=== PATIENT | female | born 1970 | race Caucasian/White ===

== ENCOUNTER 2022-01-21 11:03 | Outpatient (CLI) | payer BC, SELFPAY ==
[2022-01-21 13:43] LABS: Albumin* 4.5 g/dL (3.3-5.0); Chloride* 106 mmol/L (96-114)
[2022-01-21 13:44] LABS: Potassium* 3.7 mmol/L (3.6-5.1); Sodium* 139 mmol/L (135-149)
[2022-01-21 13:46] LABS: Aspartate Amino Transferase* 25 U/L (12-35); Bilirubin Total* 0.5 mg/dL (0.1-1.5); Blood Urea Nitrogen* 10 mg/dL (7-30); Carbon Dioxide* 27 mmol/L (20-32); Cholesterol* 216 mg/dL (90-199); Creatinine* 0.7 mg/dL (0.5-1.5); Estimated Glomerular Filt Rate 105 ml/min; Glucose* 97 mg/dL (60-115); Total Protein* 7.7 g/dL (6.0-8.3)
[2022-01-21 13:47] LABS: Alanine Aminotransferase* 18 U/L (4-35); Alkaline Phosphatase* 84 U/L (40-150); Calcium* 9.5 mg/dL (8.4-10.6); HDL Cholesterol* 60 mg/dL (>=50); LDL Cholesterol Calculated 137 mg/dL (<100); Triglycerides* 93 mg/dL (40-149)
[2022-01-21 14:04] LABS: Vitamin D 25 Hydroxy* 31 ng/mL (30-80)
[2022-01-23 14:14] LABS: Follicle Stimulating Hormone 13.9 IU/L
== END 2022-01-21 11:04 | disposition home or self-care (01) ==
PROVIDERS: PCP Physician Assistant Medical; Visit Provider Nurse Practitioner Family
DX: R53.83 Other fatigue (principal); E78.5 Hyperlipidemia, unspecified
CPT/HCPCS: 80053; 80061; 82306; 83001; 84443

== ENCOUNTER 2022-04-10 08:39 | Outpatient (CLI) | payer BC, SELFPAY ==
--- NOTE | 2022-04-10 09:00 | CRLHL7_ITS ---
For Patients: As a result of the Century Cures Act, medical imaging exams and procedure reports are released immediately into your electronic medical record. You may view this report before your referring provider. If you have questions, please contact your health care provider. INDICATION: Lung mass seen on x-ray. TECHNIQUE: CT chest without contrast. COMPARISON: 04/03/2022. FINDINGS: Lungs and pleura: Lobulated mass in the anterior left lower lobe measuring 3.9 x 2.5 x 2.2 cm. Indeterminate 6 mm pulmonary nodule in the anterior right lower lobe (series 3, image 58). No bronchial wall thickening or endoluminal filling defect. No pleural effusion or thickening. Heart and vasculature: Heart size is normal. Thoracic aorta and pulmonary artery are normal in caliber. Lymph nodes/mediastinum: Mildly enlarged left hilar lymph node measuring 11 mm in short axis (series 2, image 53). No definite mediastinal lymphadenopathy. No hot right hilar lymphadenopathy. No axillary lymphadenopathy. Subtle stranding soft tissue density in the anterior mediastinum likely mild residual thymic tissue. Chest wall: No masses. Upper abdomen: No significant findings. Adrenal glands are normal. Bones: Unremarkable for age. No suspicious osseous lesions. Multilevel degenerative disc disease in the thoracic spine. IMPRESSION: 1. Lobulated mass in the anterior left lower lobe measuring 3.9 x 2.5 x 2.2 cm concerning for malignancy. 2. Indeterminate 6 mm pulmonary nodule in the anterior right lower lobe. 3. Mild left hilar lymphadenopathy. Please note that all CT scans at this facility use dose modulation, iterative reconstruction, and/or weight-based dosing when appropriate to reduce radiation dose to as low as reasonably achievable. Dictated by Dominic Joyce MD @ 04/10/2022 10:45:12 AM (Electronically Signed)
== END 2022-04-10 08:40 | disposition home or self-care (01) ==
LOC: CT 08:40
PROVIDERS: PCP Physician Assistant Medical; Visit Provider Physician Assistant Medical
DX: R91.8 Other nonspecific abnormal finding of lung field (principal); R91.1 Solitary pulmonary nodule
CPT/HCPCS: 71260; Q9967

== ENCOUNTER 2022-06-04 11:52 | Outpatient (CLI) | payer BC, SELFPAY ==
[2022-06-04 22:42] LABS: Chloride* 104 mmol/L (96-114); Sodium* 139 mmol/L (135-149)
[2022-06-04 22:43] LABS: Potassium* 4.1 mmol/L (3.6-5.1)
[2022-06-04 22:45] LABS: Creatinine* 0.6 mg/dL (0.5-1.5); Estimated Glomerular Filt Rate 108 ml/min
[2022-06-04 22:46] LABS: Blood Urea Nitrogen* 10 mg/dL (7-30); Calcium* 9.4 mg/dL (8.4-10.6); Carbon Dioxide* 28 mmol/L (20-32); Glucose* 84 mg/dL (60-115)
== END 2022-06-04 11:53 | disposition home or self-care (01) ==
LOC: FRMREF 11:53
PROVIDERS: PCP Physician Assistant Medical; Visit Provider Family Medicine
DX: Z01.818 Encounter for other preprocedural examination (principal)
CPT/HCPCS: 80048

== ENCOUNTER 2022-07-05 14:40 | Outpatient (CLI) | payer BC, SELFPAY ==
[2022-07-05 21:54] LABS: Chloride* 107 mmol/L (96-114); Potassium* 4.5 mmol/L (3.6-5.1); Sodium* 140 mmol/L (135-149)
[2022-07-05 21:57] LABS: Carbon Dioxide* 26 mmol/L (20-32); Creatinine* 0.7 mg/dL (0.5-1.5); Estimated Glomerular Filt Rate 104 ml/min
[2022-07-05 21:58] LABS: Blood Urea Nitrogen* 9 mg/dL (7-30); Calcium* 9.2 mg/dL (8.4-10.6); Glucose* 79 mg/dL (60-115)
== END 2022-07-05 14:41 | disposition home or self-care (01) ==
LOC: LKVREF 14:41
PROVIDERS: PCP Physician Assistant Medical; Visit Provider Emergency Medicine
DX: Z01.818 Encounter for other preprocedural examination (principal)
CPT/HCPCS: 80048

== ENCOUNTER 2022-09-05 10:43 | Outpatient (CLI) | payer BC, SELFPAY | END 2022-09-05 10:44 | disposition home or self-care (01) | LOC: FRMREF 10:47 | PROVIDERS: PCP Physician Assistant Medical; Visit Provider Family Medicine | DX: R21 Rash and other nonspecific skin eruption (principal); F33.9 Major depressive disorder, recurrent, unspecified; C34.90 Malignant neoplasm of unspecified part of unspecified bronchus or lung | CPT/HCPCS: 80053 ==

== ENCOUNTER 2022-11-18 19:59 | Emergency (ER) | payer BC, SELFPAY ==
[2022-11-18 20:10] VITALS: BP 129/77; PULSE 75; RESP 18; TEMP 35.9; O2SAT 99; BMI 26.6
--- NOTE | 2022-11-18 20:37 | ED_ITS ---
HPI - Nausea/Vomiting/Diarrhea General Chief complaint: Nausea/Vomiting Stated complaint: Chemo patient, Dehydrated Time Seen by Provider: 11/18/22 20:24 History of Present Illness HPI Narrative: This patient is a 52-year-old woman who comes in reporting nausea and vomiting related to chemotherapy. She had part of her lung removed because of and adenocarcinoma. This was several months ago. She is now undergoing 4 rounds of chemotherapy and states that it is making her feel nauseated with vomiting. She feels that she is behind on fluids. She does arrive with normal vital signs. She did take a Zofran tablet prior to arrival. This is the 1st time she has taken it as she was afraid that it might cause some adverse reactions. Related Data Home Medications Medication Instructions Recorded Confirmed ferrous sulfate 27 mg iron tablet 27 mg PO QDAY 01/21/22 11/05/22 cetirizine 10 mg tablet 10 mg PO DAILY 04/03/22 11/05/22 lorazepam 0.5 mg tablet 0.5 mg PO QDAY PRN 07/05/22 11/05/22 fluticasone propionate 50 2 intranasal DAILY 09/05/22 11/05/22 mcg/actuation nasal spray,suspension folic acid 1 mg tablet 1 mg PO DAILY 10/31/22 11/05/22 valacyclovir 1 gram tablet 1,000 mg PO 3XD 10/31/22 11/05/22 Previous Rx's Medication Instructions Recorded albuterol sulfate 90 mcg/actuation 2 puff inhalation Q6-8H #8.5 grams 04/03/22 aerosol inhaler (Ventolin HFA) budesonide-formoterol HFA 160 1 inh inhalation BID #10.2 grams 04/03/22 mcg-4.5 mcg/actuation aerosol inhaler (Symbicort) montelukast 10 mg tablet 10 mg PO QDAY #90 tabs 04/03/22 pantoprazole 20 mg tablet,delayed 20 mg PO DAILY #30 tabs 11/18/22 release (Protonix) Allergies Allergy/AdvReac Type Severity Reaction Status Date / Time aspirin Allergy Intermediate Verified 11/05/22 10:11 penicillin G Allergy Intermediate rash Verified 11/05/22 10:11 Sulfa (Sulfonamide Allergy Intermediate Difficulty Verified 11/05/22 10:11 Antibiotics) Breathing clarithromycin Allergy Unknown Unknown Verified 11/05/22 10:11 penicillin V Allergy Unknown Hives Verified 11/05/22 10:11 Quinolones Allergy Unknown Verified 11/05/22 10:11 rofecoxib Allergy Unknown Verified 11/05/22 10:11 gluten Allergy Verified 11/05/22 10:11 [place] oil Allergy Unknown Unknown Uncoded 11/05/22 10:11 Milk derivatives Allergy Unknown ubknown Uncoded 11/05/22 10:11 Wheat bran Allergy Unknown Uncoded 11/05/22 10:11 Review of Systems Status of ROS: Reports: 10 or more systems reviewed and unremarkable except as noted in History and below Narrative: Constitutional: No fevers, no weight gain or loss. Eyes: No discharge. No vision changes. HENT: No congestion, no sore throat, no ear pain. Cardiovascular: No chest pain, no palpitations. Respiratory: No shortness of breath, no wheezes, no cough. Gastrointestinal: No abdominal pain. Nausea with vomiting. Genitourinary: No dysuria, no hematuria. Musculoskeletal: Normal range of motion. Skin: No rashes, no pruritis. Neurological: No dizziness, weakness, sensory change, speech change. Endo/Heme/Allergies: No bruising or bleeding. No polydipsia. Pysch: no suicidality, no anxiety, no insomnia. All other systems reviewed and are negative. [facility] Medical History (Updated 11/18/22 @ 22:11 by French Gtz MD) Torticollis ?M43.6 - Torticollis (ICD-10) Yeast dermatitis ?B37.2 - Candidiasis of skin and nail (ICD-10) Shingles ?B02.9 - Zoster without complications (ICD-10) Hyperlipidemia ?E78.5 - Hyperlipidemia, unspecified (ICD-10) Moderate persistent asthma ?J45.40 - Moderate persistent asthma, uncomplicated (ICD-10) Adenocarcinoma, lung ?C34.90 - Malignant neoplasm of unspecified part of unspecified bronchus or lung (ICD-10) Mass of left lung ?R91.8 - Other nonspecific abnormal finding of lung field (ICD-10) History of cervical dysplasia ?Z87.410 - Personal history of cervical dysplasia (ICD-10) Surgical History History of lobectomy of lung ?Z90.2 - Acquired absence of lung [part of] (ICD-10) H/O sinus surgery ?Z98.890 - Other specified postprocedural states (ICD-10) S/P bronchoscopy ?Z98.890 - Other specified postprocedural states (ICD-10) Status post laparoscopy ?Z98.890 - Other specified postprocedural states (ICD-10) Status post biopsy ?Z98.890 - Other specified postprocedural states (ICD-10) Family History (Updated 03/29/22 @ 15:37 by Syeda Nicole ~ PSR) Father Alcohol dependence Heart disease Other Asthma Social History Smoking Status: Never smoker Non-prescribed substance use: denies use Little interest or pleasure in doing things: several days Feeling down, depressed, or hopeless: not at all Exam Narrative: Exam Narrative: Constitutional: Well-developed, well-nourished, no acute distress. HEENT: Normocephalic, atraumatic. Neck: Normal range of motion. Nontender. Supple. Heart: Regular. No murmurs. Normal rate. Intact distal pulses. Lungs: Clear to auscultation. No chest discomfort. No wheezes, rhonchi, or rales. Abdomen: Normal bowel sounds. Nontender. No rebound tenderness. Genitalia: Deferred. Back: No midline tenderness. Normal range of motion. Extremities: Normal range of motion. No injury. Skin: Intact. No rash. Warm. No erythema or pallor. Neurologic: No altered sensation. No weakness. Alert and oriented. Psychiatric: No suicidality. No anxiety or depression. No insomnia. Nursing notes and vitals signs are reviewed. Const: Vital Signs, click to edit/add: Vital Signs - 24 hr 11/18/22 20:10 Temperature 96.7 F L Pulse Rate [Pulse Oximeter] 75 Respiratory Rate 18 Blood Pressure [Ri ght Upper Arm] 129/77 Pulse Oximetry 99 Oxygen Delivery Me thod Room Air Course Vital Signs Vital signs: Initial Vital Signs Temperature 96.7 F L 11/18/22 20:10 Temperature Source Temporal Artery Scan 11/18/22 20:10 Pulse Rate 75 11/18/22 20:10 Pulse Rhythm Regular 11/18/22 20:10 Respiratory Rate 18 11/18/22 20:10 Blood Pressure 129/77 11/18/22 20:10 Blood Pressure Mean 94 11/18/22 20:10 Blood Pressure Position Sitting 11/18/22 20:10 Pulse Oximetry 99 11/18/22 20:10 Oxygen Delivery Method Room Air 11/18/22 20:10 Vital Signs Temperature 96.7 F L 11/18/22 20:10 Pulse Rate 75 11/18/22 20:10 Respiratory Rate 18 11/18/22 20:10 Blood Pressure 129/77 11/18/22 20:10 Pulse Oximetry 99 11/18/22 20:10 Oxygen Delivery Method Room Air 11/18/22 20:10 Temperature 96.7 F L 11/18/22 20:10 Pulse Rate 75 11/18/22 20:10 Respiratory Rate 18 11/18/22 20:10 Blood Pressure 129/77 11/18/22 20:10 Pulse Oximetry 99 11/18/22 20:10 Oxygen Delivery Method Room Air 11/18/22 20:10 MDM - Nausea/Vomiting/Diarrhea MDM Narrative Medical decision making narrative: This patient comes in with persistent vomiting and nausea related to chemotherapy. She has had similar symptoms previously that benefited from IV fluids. An IV was established and she did receive a total of 2 L of normal saline. She had taken Zofran prior to arrival. This was the 1st time she had taken this and was concerned that she might have some adverse reactions but did not. She feels better when remaining still but states that she tosses her cookies when she stands up. Lab results returned with reassuring findings. Her potassium and sodium are slightly low. She did also receive an IV dose of Protonix 40 mg. The patient is okay to be discharged home. A prescription for Protonix is provided. She is encouraged to follow-up with her primary physician or return if needed. Lab Data Labs: Lab Results 11/18/22 Range/Units 20:50 WBC 5.43 (4.50-11.00) K/uL RBC 3.52 L (4.00-5.20) m/uL Hgb 11.2 L (12.0-16.0) gm/dL Hct 32.1 L (33.0-51.0) % MCV 91 (80-100) fL MCH 32 (26-34) pg MCHC 35 (32-36) gm/dL RDW Coeff of Barber 12.5 (11.5-15.5) % Plt Count 241 (140-440) K/uL Neut % (Auto) 63.2 (42.0-72.0) % Lymph % (Auto) 32.0 (20-44) % [place] % (Auto) 1.8 (0.0-11.0) % Eos % (Auto) 2.4 (0.0-7.0) % Baso % (Auto) 0.4 (0.0-3.0) % Neut # (Auto) 3.43 (1.7-7.0) K/uL Lymph # (Auto) 1.74 (0.90-2.90) K/uL [place] # (Auto) 0.10 (0.00-0.90) K/UL Eos # (Auto) 0.13 (0.00-0.50) K/uL Baso # (Auto) 0.02 (0.00-0.30) K/uL Sodium 133 L (135-149) mmol/L Potassium 3.2 L (3.6-5.1) mmol/L Chloride 97 (96-114) mmol/L Carbon Dioxide 30 (20-32) mmol/L BUN 14 (7-30) mg/dL Creatinine 0.9 (0.5-1.5) mg/dL Estimated Creat Clear 76.42 Estimated GFR 77 ml/min Glucose 91 (60-115) mg/dL Calcium 9.1 (8.4-10.6) mg/dL Discharge Plan Discharge Clinical Impression: Non-small cell lung cancer, Fluid volume depletion Patient Disposition: Home, Self-Care Condition: Stable Additional Instructions: Take medication as prescribed and needed. Increase diet as tolerated. Take frequent sips of fluids. Follow up with MD return if worsening. Prescriptions: New pantoprazole [Protonix] 20 mg tablet,delayed release (DR/EC) 20 mg PO DAILY Qty: 30 2RF No Action cetirizine 10 mg tablet 10 mg PO DAILY budesonide-formoterol [Symbicort] 160-4.5 mcg/actuation HFA aerosol inhaler 1 inh inhalation BID Qty: 10.2 11RF albuterol sulfate [Ventolin HFA] 90 mcg/actuation HFA aerosol inhaler 2 puff inhalation Q6-8H Qty: 8.5 11RF montelukast 10 mg tablet 10 mg PO QDAY Qty: 90 3RF fluticasone propionate 50 mcg/actuation spray,suspension 2 intranasal DAILY ferrous sulfate 27 mg iron tablet 27 mg PO QDAY lorazepam 0.5 mg tablet 0.5 mg PO QDAY PRN valacyclovir 1 gram tablet 1,000 mg PO 3XD folic acid 1 mg tablet 1 mg PO DAILY Follow Up/Referrals: Claudai Armstrong DO [Primary Care Provider] - Stand Alone Forms: [facility] Info Instructions
[2022-11-18] MEDS: 0.9 % SODIUM CHLORIDE 1000 ml 1,000 ML IV ×2 (20:55→22:15)
[2022-11-18 21:07] LABS: Basophils Absolute Auto 0.02 K/uL (0.00-0.30); Basophils Percent Auto 0.4 % (0.0-3.0); Eosinophils Absolute Auto 0.13 K/uL (0.00-0.50); Eosinophils Percent Auto 2.4 % (0.0-7.0); Hematocrit 32.1 % (33.0-51.0); Hemoglobin* 11.2 gm/dL (12.0-16.0); Immature Granulocytes Abs Auto 0.01 K/uL (0.00-0.30); Immature Granulocytes Pct Auto 0.2 %; Lymphocytes Absolute Auto 1.74 K/uL (0.90-2.90); Mean Corpuscular HGB Conc 35 gm/dL (32-36); Mean Corpuscular Hemoglobin 32 pg (26-34); Mean Corpuscular Volume 91 fL (80-100); Monocytes Percent Auto 1.8 % (0.0-11.0); Neutrophils Absolute Auto 3.43 K/uL (1.7-7.0); Neutrophils Percent Auto 63.2 % (42.0-72.0); Platelet Count* 241 K/uL (140-440); RDW Coefficient of Variation % 12.5 % (11.5-15.5); Red Blood Count 3.52 m/uL (4.00-5.20); White Blood Count* 5.43 K/uL (4.50-11.00)
[2022-11-18 21:10] LABS: Slide Review Reflex No
[2022-11-18 21:24] LABS: Chloride* 97 mmol/L (96-114); Potassium* 3.2 mmol/L (3.6-5.1); Sodium* 133 mmol/L (135-149)
[2022-11-18 21:27] LABS: Blood Urea Nitrogen* 14 mg/dL (7-30); Carbon Dioxide* 30 mmol/L (20-32); Creatinine* 0.9 mg/dL (0.5-1.5); Est. Creatinine Clearance* 76.42; Estimated Glomerular Filt Rate 77 ml/min
[2022-11-18 21:28] LABS: Calcium* 9.1 mg/dL (8.4-10.6); Glucose* 91 mg/dL (60-115)
[2022-11-18] MEDS: PANTOPRAZOLE SODIUM 40 MG INJ IVP (21:41)
[2022-11-18 22:15] VITALS: BP 124/62; PULSE 69; RESP 18; TEMP 36.1; O2SAT 98
== END 2022-11-18 23:30 | disposition home or self-care (01) ==
PROVIDERS: Emergency Provider Emergency Medicine Emergency Medical Services; PCP Physician Assistant Medical
DX: E86.9 Volume depletion, unspecified (principal); C34.90 Malignant neoplasm of unspecified part of unspecified bronchus or lung
CPT/HCPCS: 36415; 80048; 85025; 96361; 96374; 99284; C9113; J7030

== ENCOUNTER 2022-12-20 17:13 | Emergency (ER) | payer BC, SELFPAY ==
[2022-12-20 17:19] VITALS: BP 131/82; PULSE 83; RESP 20; TEMP 36.2; O2SAT 98; BMI 26.4
--- NOTE | 2022-12-20 17:35 | ED.GENADULT ---
HPI - General Adult General Time Seen by Provider: 17:35 Date Seen: 12/20/22 Chief complaint: Weakness Stated complaint: Concerns about anemia from chemo Time Seen by Provider: 12/20/22 17:15 Source: patient, RN notes reviewed and old records reviewed Mode of arrival: ambulatory Limitations: no limitations History of Present Illness HPI narrative: 52-year-old female who comes in today with weakness. Patient has a history of lung adenocarcinoma as well as asthma and anxiety, complains of generalized weakness today. This is been going on for a while. She says she feels lightheaded when she walks, generally weak, no chest pain but some shortness of breath. No numbness or tingling in the arms or legs and says she sometimes feels clumsy. Occasional headaches. Denies abdominal pain, nausea, vomiting, stools are so ?mushy? which is not unusual for her. Reports hemoglobin last week was 9.4 or 9.7, she is not sure which. Related Data Home Medications Medication Instructions Recorded Confirmed ferrous sulfate 27 mg iron tablet 27 mg PO QDAY 01/21/22 11/05/22 cetirizine 10 mg tablet 10 mg PO DAILY 04/03/22 11/05/22 lorazepam 0.5 mg tablet 0.5 mg PO QDAY PRN 07/05/22 11/05/22 fluticasone propionate 50 2 intranasal DAILY 09/05/22 11/05/22 mcg/actuation nasal spray,suspension folic acid 1 mg tablet 1 mg PO DAILY 10/31/22 11/05/22 valacyclovir 1 gram tablet 1,000 mg PO 3XD 10/31/22 11/05/22 Previous Rx's Medication Instructions Recorded albuterol sulfate 90 mcg/actuation 2 puff inhalation Q6-8H #8.5 grams 04/03/22 aerosol inhaler (Ventolin HFA) budesonide-formoterol HFA 160 1 inh inhalation BID #10.2 grams 04/03/22 mcg-4.5 mcg/actuation aerosol inhaler (Symbicort) montelukast 10 mg tablet 10 mg PO QDAY #90 tabs 04/03/22 pantoprazole 20 mg tablet,delayed 20 mg PO DAILY #30 tabs 11/18/22 release (Protonix) Allergies Allergy/AdvReac Type Severity Reaction Status Date / Time aspirin Allergy Intermediate Verified 11/05/22 10:11 penicillin G Allergy Intermediate rash Verified 11/05/22 10:11 Sulfa (Sulfonamide Allergy Intermediate Difficulty Verified 11/05/22 10:11 Antibiotics) Breathing clarithromycin Allergy Unknown Unknown Verified 11/05/22 10:11 penicillin V Allergy Unknown Hives Verified 11/05/22 10:11 Quinolones Allergy Unknown Verified 11/05/22 10:11 rofecoxib Allergy Unknown Verified 11/05/22 10:11 gluten Allergy Verified 11/05/22 10:11 [place] oil Allergy Unknown Unknown Uncoded 11/05/22 10:11 Milk derivatives Allergy Unknown ubknown Uncoded 11/05/22 10:11 Wheat bran Allergy Unknown Uncoded 11/05/22 10:11 PFSH PFS Medical History (Updated 12/20/22 @ 19:37 by Evan Shen MD) Torticollis ?M43.6 - Torticollis (ICD-10) Yeast dermatitis ?B37.2 - Candidiasis of skin and nail (ICD-10) Shingles ?B02.9 - Zoster without complications (ICD-10) Hyperlipidemia ?E78.5 - Hyperlipidemia, unspecified (ICD-10) Moderate persistent asthma ?J45.40 - Moderate persistent asthma, uncomplicated (ICD-10) Adenocarcinoma, lung ?C34.90 - Malignant neoplasm of unspecified part of unspecified bronchus or lung (ICD-10) Mass of left lung ?R91.8 - Other nonspecific abnormal finding of lung field (ICD-10) History of cervical dysplasia ?Z87.410 - Personal history of cervical dysplasia (ICD-10) Surgical History History of lobectomy of lung ?Z90.2 - Acquired absence of lung [part of] (ICD-10) H/O sinus surgery ?Z98.890 - Other specified postprocedural states (ICD-10) S/P bronchoscopy ?Z98.890 - Other specified postprocedural states (ICD-10) Status post laparoscopy ?Z98.890 - Other specified postprocedural states (ICD-10) Status post biopsy ?Z98.890 - Other specified postprocedural states (ICD-10) Family History (Updated 03/29/22 @ 15:37 by Syeda Nicole ~ PSR) Father Alcohol dependence Heart disease Other Asthma Social History Smoking Status: Never smoker Do you use any of these nicotine containing products: None Second hand tobacco smoke exposure: No How often do you have a drink containing alcohol: never How often do you have six or more drinks on one occasion: Never AUDIT-C Alcohol total score: 0 Non-prescribed substance use: denies use Little interest or pleasure in doing things: several days Feeling down, depressed, or hopeless: not at all service: No Exam Narrative: Exam Narrative: General: Well-developed and well-nourished, no acute distress Head: Atraumatic and normocephalic Eyes: Pupils are equal reactive, extraocular motions intact, conjunctiva clear ENT: External nose and ears are normal, posterior pharynx without erythema or exudate Neck: No midline cervical tenderness, full spontaneous range of motion the neck, trachea midline, no adenopathy Heart: Regular rate and rhythm no murmurs or thrills Lungs: Clear to auscultation bilaterally without wheezes or crackles Abdomen: Soft, nontender, nondistended with active bowel sounds Musculoskeletal: No tenderness, deformity, or edema Neurologic: Awake, alert, and oriented x3, no gross focal neurologic deficits, cranial nerves intact as tested Psych: Mood and affect are appropriate Skin: No rashes Const: Vital Signs, click to edit/add: Vital Signs - 24 hr 12/20/22 17:19 12/20/22 19:35 Temperature 97.2 F L 98.3 F Pulse Rate [Pulse Oximeter] 83 66 Respiratory Rate 20 18 Blood Pressure [Le ft Upper Arm] 131/82 148/73 H Pulse Oximetry 98 100 Oxygen Delivery Me thod Room Air Room Air Course Course Hospital Course: Patient seen and examined, prior records reviewed. Patient presents today with lightheadedness and weakness, worried that she may be anemic. On exam here, no focal neurologic deficits, vital is stable. Appears slightly pale. She does have some shortness of breath but no pleuritic-type chest pain and no hypoxia, pulmonary embolism possible as patient is higher risk due to her malignancy but clinically unlikely. Labs are ordered along with fluids, CT scan of the head due to malignancy, headache, and expressed clumsiness. Reevaluation(s) Time of Reevaluation #1: 18:57 Reevaluation #1: CT scan of the head independently interpreted by me does not demonstrate any acute findings. Chest x-ray demonstrates hiatal hernia, no other acute findings. Time of Reevaluation #2: 19:33 Reevaluation #2: Labs independently interpreted by me demonstrate low hemoglobin 8.6, prior was 11.2 one month ago. Platelets 103 down from 241 month ago. Would not transfuse patient at 8.6 but keep close follow-up and consideration for transfusion if goes lower. Basic panel is reassuring, urinalysis is negative for acute infection. EKG is reassuring and troponin is negative. Patient is stable for discharge after fluids and should contact Oncology tomorrow. Time of Reevaluation #3: 19:57 Reevaluation #3: Updated patient with findings and plan. She is agreeable discharge after fluids with close follow-up with oncology. Vital Signs Vital signs: Initial Vital Signs Temperature 97.2 F L 12/20/22 17:19 Temperature Source Temporal Artery Scan 12/20/22 17:19 Pulse Rate 83 12/20/22 17:19 Pulse Rhythm Regular 12/20/22 17:19 Respiratory Rate 20 12/20/22 17:19 Blood Pressure 131/82 12/20/22 17:19 Blood Pressure Mean 98 12/20/22 17:19 Blood Pressure Position Sitting 12/20/22 17:19 Pulse Oximetry 98 12/20/22 17:19 Oxygen Delivery Method Room Air 12/20/22 17:19 Vital Signs Temperature 97.2 F L 12/20/22 17:19 Pulse Rate 83 12/20/22 17:19 Respiratory Rate 20 12/20/22 17:19 Blood Pressure 131/82 12/20/22 17:19 Pulse Oximetry 98 12/20/22 17:19 Oxygen Delivery Method Room Air 12/20/22 17:19 Temperature 98.3 F 12/20/22 19:35 Pulse Rate 66 12/20/22 19:35 Respiratory Rate 18 12/20/22 19:35 Blood Pressure 148/73 H 12/20/22 19:35 Pulse Oximetry 100 12/20/22 19:35 Oxygen Delivery Method Room Air 12/20/22 19:35 Medical Decision Making Lab Data Labs: Lab Results 12/20/22 12/20/22 Range/Units 18:15 18:50 WBC 3.19 L (4.50-11.00) K/uL RBC 2.65 L (4.00-5.20) m/uL Hgb 8.6 L (12.0-16.0) gm/dL Hct 25.0 L (33.0-51.0) % MCV 94 (80-100) fL MCH 33 (26-34) pg MCHC 34 (32-36) gm/dL RDW Coeff of Barber 12.5 (11.5-15.5) % Plt Count 103 L (140-440) K/uL Neut % (Auto) 23.5 L (42.0-72.0) % Lymph % (Auto) 58.0 H (20-44) % [place] % (Auto) 15.7 H (0.0-11.0) % Eos % (Auto) 2.5 (0.0-7.0) % Baso % (Auto) 0.3 (0.0-3.0) % Neut # (Auto) 0.70 L (1.7-7.0) K/uL Lymph # (Auto) 1.90 (0.90-2.90) K/uL [place] # (Auto) 0.50 (0.00-0.90) K/UL Eos # (Auto) 0.10 (0.00-0.50) K/uL Baso # (Auto) 0.00 (0.00-0.30) K/uL Abs Immat Gran (auto) 0.00 (0.00-0.30) K/uL Imm/Tot Granulo (auto) 0.0 % Diff Slide Review Acceptable Review (Acceptable) Sodium 138 (135-149) mmol/L Potassium 4.0 (3.6-5.1) mmol/L Chloride 106 (96-114) mmol/L Carbon Dioxide 26 (20-32) mmol/L BUN 14 (7-30) mg/dL Creatinine 0.7 (0.5-1.5) mg/dL Estimated Creat Clear 98.25 Estimated GFR 104 ml/min Glucose 88 (60-115) mg/dL Calcium 9.1 (8.4-10.6) mg/dL Magnesium 1.8 (1.5-2.6) mg/dL Urine Color Yellow (Yellow) Urine Appearance Clear (Clear) Urine pH 6.0 (5.0-8.5) Ur Specific [place] 1.010 (1.000-1.030) Urine Protein Negative (Negative) Urine Glucose (UA) Negative (Negative) Urine Ketones Negative (Negative) Urine Blood Trace-lysed A (Negative) Urine Nitrite Negative (Negative) Urine Bilirubin Negative (Negative) Urine Urobilinogen 0.2 (0.2-1.0) Ur Leukocyte Esterase Negative (Negative) Urine RBC 0-2 (0-2) Urine WBC 0-2 (0-5) Ur Squamous Epith Cells None (None-Few) Urine Bacteria None (None) POC Troponin I 0.00 L (0.01-0.04) ng/ml ECG Data Attestation: I personally reviewed and interpreted this ECG as follows: Prior ECG tracings: not available for review Interpretation: Performed at 6:40 p.m. demonstrates sinus rhythm rate 73, no acute ST elevations or depressions, normal intervals, normal axis, QTC 471, GA 154. No prior for comparison. Discharge Plan Discharge Clinical Impression: Pancytopenia due to chemotherapy, Non-small cell lung cancer Patient Disposition: Home w/ Parent or Adult Condition: Stable Instructions: Iron Rich Diet (ED), Eating During Cancer Treatment (DC), Pancytopenia (DC) Additional Instructions: Hemoglobin 8.6 Platelets 103 White blood cell count 3.19 Call your oncologist tomorrow to discuss recheck and further treatment. Prescriptions: No Action cetirizine 10 mg tablet 10 mg PO DAILY budesonide-formoterol [Symbicort] 160-4.5 mcg/actuation HFA aerosol inhaler 1 inh inhalation BID Qty: 10.2 11RF albuterol sulfate [Ventolin HFA] 90 mcg/actuation HFA aerosol inhaler 2 puff inhalation Q6-8H Qty: 8.5 11RF montelukast 10 mg tablet 10 mg PO QDAY Qty: 90 3RF fluticasone propionate 50 mcg/actuation spray,suspension 2 intranasal DAILY ferrous sulfate 27 mg iron tablet 27 mg PO QDAY lorazepam 0.5 mg tablet 0.5 mg PO QDAY PRN valacyclovir 1 gram tablet 1,000 mg PO 3XD folic acid 1 mg tablet 1 mg PO DAILY pantoprazole [Protonix] 20 mg tablet,delayed release (DR/EC) 20 mg PO DAILY Qty: 30 2RF Follow Up/Referrals: Nathalie Dowling PA-C [Primary Care Provider] - Stand Alone Forms: [facility] Info Instructions
--- NOTE | 2022-12-20 18:00 | CRLHL7_ITS ---
For Patients: As a result of the Century Cures Act, medical imaging exams and procedure reports are released immediately into your electronic medical record. You may view this report before your referring provider. If you have questions, please contact your health care provider. INDICATION: Weakness. TECHNIQUE: CT head without contrast. COMPARISON: 03/06/2019. FINDINGS: CSF spaces: Within normal limits for age. Brain parenchyma: The fox-white differentiation is normal. No sign of mass, hemorrhage, or midline shift. Skull base and calvarium: Polypoid mucosal thickening in the left frontal, left ethmoid, and bilateral maxillary sinuses. Mastoid air cells are clear. The visualized orbits are grossly unremarkable. No skull fractures. IMPRESSION: No acute intracranial abnormality. Please note that all CT scans at this facility use dose modulation, iterative reconstruction, and/or weight-based dosing when appropriate to reduce radiation dose to as low as reasonably achievable. Dictated by Henri Saleh MD @ 12/20/2022 6:59:32 PM (Electronically Signed)
--- NOTE | 2022-12-20 18:01 | CRLHL7_ITS ---
For Patients: As a result of the Century Cures Act, medical imaging exams and procedure reports are released immediately into your electronic medical record. You may view this report before your referring provider. If you have questions, please contact your health care provider. INDICATION: Weakness. TECHNIQUE: Chest 2 views. COMPARISON: 09/05/2022. FINDINGS: Cardiovascular and mediastinum: Heart size and vasculature are normal in caliber and appearance. Lungs and pleural spaces: Postoperative changes of partial left pneumonectomy with associated left basilar volume loss, unchanged. Right lung is clear. No pleural effusions or pneumothorax. Bones and soft tissues: No significant findings. IMPRESSION: No acute findings and no significant changes from the prior exam. Dictated by Henri Saleh MD @ 12/20/2022 6:56:35 PM (Electronically Signed)
[2022-12-20 19:03] LABS: Basophils Percent Auto 0.3 % (0.0-3.0); Eosinophils Percent Auto 2.5 % (0.0-7.0); Hemoglobin* 8.6 gm/dL (12.0-16.0); Mean Corpuscular HGB Conc 34 gm/dL (32-36); Mean Corpuscular Hemoglobin 33 pg (26-34); Mean Corpuscular Volume 94 fL (80-100); Monocytes Percent Auto 15.7 % (0.0-11.0); Neutrophils Percent Auto 23.5 % (42.0-72.0); Platelet Count* 103 K/uL (140-440); RDW Coefficient of Variation % 12.5 % (11.5-15.5); Red Blood Count 2.65 m/uL (4.00-5.20); White Blood Count* 3.19 K/uL (4.50-11.00)
[2022-12-20] MEDS: 0.9 % SODIUM CHLORIDE 1000 ml 1,000 ML IV (19:03)
[2022-12-20 19:13] LABS: Appearance Urine Clear (Clear); Bilirubin Urine Negative (Negative); Blood Urine Trace-lysed (Negative); Color Urine Yellow (Yellow); Glucose Urine Negative (Negative); Ketones Urine Negative (Negative); Leukocyte Esterase Urine Negative (Negative); Nitrite Urine Negative (Negative); Protein Urine Negative (Negative); Urobilinogen Urine 0.2 (0.2-1.0)
[2022-12-20 19:21] LABS: Chloride* 106 mmol/L (96-114); Sodium* 138 mmol/L (135-149)
[2022-12-20 19:24] LABS: Carbon Dioxide* 26 mmol/L (20-32); Creatinine* 0.7 mg/dL (0.5-1.5); Est. Creatinine Clearance* 98.25; Estimated Glomerular Filt Rate 104 ml/min
[2022-12-20 19:25] LABS: Blood Urea Nitrogen* 14 mg/dL (7-30); Calcium* 9.1 mg/dL (8.4-10.6); Glucose* 88 mg/dL (60-115); Magnesium* 1.8 mg/dL (1.5-2.6)
[2022-12-20 19:34] LABS: RBC Urine 0-2 (0-2); WBC Urine 0-2 (0-5)
[2022-12-20 19:35] VITALS: BP 148/73; PULSE 66; RESP 18; TEMP 36.8; O2SAT 100
[2022-12-20 19:55] LABS: Slide Review Reflex Yes
[2022-12-20 19:56] LABS: Slide Review Acceptable Review (Acceptable)
== END 2022-12-20 20:25 | disposition home or self-care (01) ==
PROVIDERS: Emergency Provider Family Medicine; PCP Physician Assistant Medical
DX: D61.810 Antineoplastic chemotherapy induced pancytopenia (principal); C34.90 Malignant neoplasm of unspecified part of unspecified bronchus or lung
CPT/HCPCS: 36415; 70450; 71046; 80048; 81001; 83735; 84484; 85025; 93005; 99284; J7030

== ENCOUNTER 2023-01-05 20:50 | Emergency (ER) | payer BC, SELFPAY ==
[2023-01-05] VITALS (9 sets, daily range): BP systolic 117–123; BP diastolic 56–60; PULSE 70–83; RESP 16; TEMP 36.6; O2SAT 97–100; BMI 26.4
--- NOTE | 2023-01-05 21:13 | ED_ITS ---
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 Patient recently finished her 4th round of chemotherapy. She really has not had a lot of persistent nausea with her chemotherapy. She has not had any fever chills. She does admit that she feels slightly bloated and has chronic constipation but denies any abdominal pain at this time. She has no dysuria fevers or diarrhea. She does think she is dehydrated. She has not taken any medications at home with the exception of Rolaids with magnesium. Associated nausea: Yes Related Data Home Medications Medication Instructions Recorded Confirmed ferrous sulfate 27 mg iron tablet 27 mg PO QDAY 01/21/22 01/05/23 cetirizine 10 mg tablet 10 mg PO DAILY 04/03/22 01/05/23 lorazepam 0.5 mg tablet 0.5 mg PO QDAY PRN 07/05/22 01/05/23 fluticasone propionate 50 2 intranasal DAILY 09/05/22 11/05/22 mcg/actuation nasal spray,suspension folic acid 1 mg tablet 1 mg PO DAILY 10/31/22 01/05/23 Previous Rx's Medication Instructions Recorded albuterol sulfate 90 mcg/actuation 2 puff inhalation Q6-8H #8.5 grams 04/03/22 aerosol inhaler (Ventolin HFA) budesonide-formoterol HFA 160 1 inh inhalation BID #10.2 grams 04/03/22 mcg-4.5 mcg/actuation aerosol inhaler (Symbicort) montelukast 10 mg tablet 10 mg PO QDAY #90 tabs 04/03/22 Allergies Allergy/AdvReac Type Severity Reaction Status Date / Time aspirin Allergy Intermediate Verified 01/05/23 21:07 penicillin G Allergy Intermediate rash Verified 01/05/23 21:07 Sulfa (Sulfonamide Allergy Intermediate Difficulty Verified 01/05/23 21:07 Antibiotics) Breathing clarithromycin Allergy Unknown Unknown Verified 01/05/23 21:07 penicillin V Allergy Unknown Hives Verified 01/05/23 21:07 Quinolones Allergy Unknown Verified 01/05/23 21:07 rofecoxib Allergy Unknown Verified 01/05/23 21:07 gluten Allergy Verified 01/05/23 21:07 [place] oil Allergy Unknown Unknown Uncoded 11/05/22 10:11 Milk derivatives Allergy Unknown ubknown Uncoded 11/05/22 10:11 Wheat bran Allergy Unknown Uncoded 11/05/22 10:11 Review of Systems Status of ROS: Reports: 10 or more systems reviewed and unremarkable except as noted in History and below Const: Reports: fatigue; Denies: fever or chills ENMT: Denies: throat pain, neck pain or throat swelling Cardio: Denies: chest pain or shortness of breath with exertion Resp: Denies: shortness of breath or cough GI: Reports: nausea, vomiting, constipation, bloating and belching; Denies: abdominal pain, diarrhea or blood in stool : Denies: painful urination, urinary frequency or urinary urgency Musculo: Denies: back pain or neck pain Integ/Breast: Denies: rash Neuro: Denies: headache or numbness in extremities Endo: Reports: fatigue; Denies: excessive urination or excessive thirst Allergy/Immuno: Denies: throat swelling PFSH PFSH Medical History (Updated 01/05/23 @ 23:17 by Taylor Charlton MD) Torticollis ?M43.6 - Torticollis (ICD-10) Yeast dermatitis ?B37.2 - Candidiasis of skin and nail (ICD-10) Shingles ?B02.9 - Zoster without complications (ICD-10) Hyperlipidemia ?E78.5 - Hyperlipidemia, unspecified (ICD-10) Moderate persistent asthma ?J45.40 - Moderate persistent asthma, uncomplicated (ICD-10) Adenocarcinoma, lung ?C34.90 - Malignant neoplasm of unspecified part of unspecified bronchus or lung (ICD-10) Mass of left lung ?R91.8 - Other nonspecific abnormal finding of lung field (ICD-10) History of cervical dysplasia ?Z87.410 - Personal history of cervical dysplasia (ICD-10) Surgical History History of lobectomy of lung ?Z90.2 - Acquired absence of lung [part of] (ICD-10) H/O sinus surgery ?Z98.890 - Other specified postprocedural states (ICD-10) S/P bronchoscopy ?Z98.890 - Other specified postprocedural states (ICD-10) Status post laparoscopy ?Z98.890 - Other specified postprocedural states (ICD-10) Status post biopsy ?Z98.890 - Other specified postprocedural states (ICD-10) Family History (Updated 03/29/22 @ 15:37 by Syeda Nicole ~ PSR) Father Alcohol dependence Heart disease Other Asthma Social History Smoking Status: Never smoker Do you use any of these nicotine containing products: None Second hand tobacco smoke exposure: No How often do you have a drink containing alcohol: never How often do you have six or more drinks on one occasion: Never AUDIT-C Alcohol total score: 0 Non-prescribed substance use: denies use Little interest or pleasure in doing things: several days Feeling down, depressed, or hopeless: not at all service: No Exam Narrative: Exam Narrative: Alert and oriented. Very pleasant woman in no acute discomfort. EOM is full. Oral cavity with tacky mucous membranes. No evidence of yeast or erythema. Neck is supple without lymphadenopathy Heart with a regular rate and rhythm. Lungs are clear bilaterally. Decreased breath sounds on the left. Abdomen is slightly bloated but is soft and nontender. No pain with palpation in the epigastrium right upper quadrant. Moving all extremities Const: Vital Signs, click to edit/add: Vital Signs - 24 hr 01/05/23 21:02 Temperature 97.8 F Pulse Rate [Left P ulse Oximeter] 70 Respiratory Rate 16 Blood Pressure [Le ft Upper Arm] 120/58 L Pulse Oximetry 97 Oxygen Delivery Me thod Room Air Documenting provider has reviewed patient's vital signs: yes Course Course Hospital Course: At this time differential diagnosis includes gastroenteritis, gastritis, chemotherapy response, small-bowel obstruction. Although patient has no distinct abdominal pain at this time. Did have a small bowel movement this morning. Will place an IV and check CBC, comprehensive panel, urinalysis, and give 1 L of normal saline. Will also give Zofran 4 mg IV. Reevaluation(s) Reevaluation #1: Patient informed that she does have a hemoglobin of 8.6. However, she has O2 saturations that are reassuring as well as no evidence of tachycardia are or hypotension. Previous value in our system is 8.6. She was able to rebound from this in the past and has not received a blood transfusion. At this time do not recommend transfusion but rather follow-up with primary MD for recheck. Reevaluation #2: Patient noted to have reassuring electrolytes as well as platelets, white cells, LFTs. CRP within normal limits. Urinalysis without evidence of ketones. Vital Signs Vital signs: Initial Vital Signs Temperature 97.8 F 01/05/23 21:02 Temperature Source Temporal Artery Scan 01/05/23 21:02 Pulse Rate 70 01/05/23 21:02 Respiratory Rate 16 01/05/23 21:02 Blood Pressure 120/58 L 01/05/23 21:02 Blood Pressure Mean 78 01/05/23 21:02 Blood Pressure Position Semi-Fowlers 01/05/23 21:02 Pulse Oximetry 97 01/05/23 21:02 Oxygen Delivery Method Room Air 01/05/23 21:02 Vital Signs Temperature 97.8 F 01/05/23 21:02 Pulse Rate 70 01/05/23 21:02 Respiratory Rate 16 01/05/23 21:02 Blood Pressure 120/58 L 01/05/23 21:02 Pulse Oximetry 97 01/05/23 21:02 Oxygen Delivery Method Room Air 01/05/23 21:02 Temperature 97.8 F 01/05/23 21:02 Pulse Rate 70 01/05/23 21:02 Respiratory Rate 16 01/05/23 21:02 Blood Pressure 120/58 L 01/05/23 21:02 Pulse Oximetry 97 01/05/23 21:02 Oxygen Delivery Method Room Air 01/05/23 21:02 MDM - Nausea/Vomiting/Diarrhea MDM Narrative Medical decision making narrative: 1. Nausea vomiting-resolved with Zofran 4 mg IV and 1 L of normal saline. Additional L given as patient felt that she had not been adequately urinating. Patient has been able to eat and drink. Feeling much better. Will give her prescription for Zofran ODT 4 mg Q 8 hours p.r.n. 10. With no refills. 2. Anemia-hemoglobin 8.16. Platelets and white counts within normal limits. Recommend follow-up with Oncology for recheck of hemoglobin. At this time patient is not tachycardic nor hypotensive. 2. Disposition -home. Return for worsening symptoms and as needed. Medical Records Attestation: I reviewed the patient's medical records. Lab Data Attestation: I reviewed the patient's lab results. Labs: Lab Results 01/05/23 01/05/23 Range/Units 21:40 22:27 WBC 5.32 (4.50-11.00) K/uL RBC 2.56 L (4.00-5.20) m/uL Hgb 8.6 L (12.0-16.0) gm/dL Hct 25.0 L (33.0-51.0) % MCV 98 (80-100) fL MCH 34 (26-34) pg MCHC 34 (32-36) gm/dL RDW Coeff of [place] 15.4 (11.5-15.5) % Plt Count 241 (140-440) K/uL Neut % (Auto) 62.4 (42.0-72.0) % Lymph % (Auto) 33.8 (20-44) % [place] % (Auto) 2.3 (0.0-11.0) % Eos % (Auto) 1.1 (0.0-7.0) % Baso % (Auto) 0.4 (0.0-3.0) % Neut # (Auto) 3.32 (1.7-7.0) K/uL Lymph # (Auto) 1.80 (0.90-2.90) K/uL [place] # (Auto) 0.10 (0.00-0.90) K/UL Eos # (Auto) 0.06 (0.00-0.50) K/uL Baso # (Auto) 0.02 (0.00-0.30) K/uL Abs Immat Gran (auto) 0.00 (0.00-0.30) K/uL Imm/Tot Granulo (auto) 0.0 % Sodium 135 (135-149) mmol/L Potassium 3.4 L (3.6-5.1) mmol/L Chloride 102 (96-114) mmol/L Carbon Dioxide 28 (20-32) mmol/L BUN 14 (7-30) mg/dL Creatinine 0.6 (0.5-1.5) mg/dL Estimated Creat Clear 114.62 Estimated GFR 108 ml/min Glucose 94 (60-115) mg/dL Calcium 8.7 (8.4-10.6) mg/dL Magnesium 1.7 (1.5-2.6) mg/dL Total Bilirubin 0.5 (0.1-1.5) mg/dL AST 24 (12-35) U/L ALT 21 (4-35) U/L Alkaline Phosphatase 60 (40-150) U/L C-Reactive Protein 0.8 (0.5-1.0) mg/dL Total Protein 6.4 (6.0-8.3) g/dL Albumin 3.7 (3.3-5.0) g/dL Urine Color Yellow (Yellow) Urine Appearance Clear (Clear) Urine pH 8.5 (5.0-8.5) Ur Specific [place] 1.020 (1.000-1.030) Urine Protein Negative (Negative) Urine Glucose (UA) Negative (Negative) Urine Ketones Negative (Negative) Urine Blood Negative (Negative) Urine Nitrite Negative (Negative) Urine Bilirubin Negative (Negative) Urine Urobilinogen 0.2 (0.2-1.0) Ur Leukocyte Esterase Negative (Negative) Urine RBC 0-2 (0-2) Urine WBC 0-2 (0-5) Ur Squamous Epith Cells None (None-Few) Urine Bacteria None (None) Discharge Plan Discharge Clinical Impression: Anemia Qualifiers: Anemia type: other cause Other causes of anemia: other cause, not classified Qualified Code(s): D64.89 - Other specified anemias Nausea & vomiting Qualifiers: Vomiting type: unspecified Qualified Code(s): R11.2 - Nausea with vomiting, unspecified Patient Disposition: Home, Self-Care Condition: Improved Instructions: Acute Nausea and Vomiting (ED), Anemia (ED) Additional Instructions: Your hemoglobin is 8.6. Your white count was normal at 5.32 and your platelets were normal at 241. Your urine was without any evidence of infection. Follow-up tomorrow by calling your primary doctor or oncologist. You will need to have a recheck of your hemoglobin. Zofran may be used for nausea. This will be in our InStent meds machine. We spoke about the possibility of increasing constipation. Would recommend using MiraLax 1/2 dose every 12 hours. Continue Colace at this time. Return to the emergency room for vomiting, blood in stool, worsening symptoms, fever and as needed. Prescriptions: No Action cetirizine 10 mg tablet 10 mg PO DAILY budesonide-formoterol [Symbicort] 160-4.5 mcg/actuation HFA aerosol inhaler 1 inh inhalation BID Qty: 10.2 11RF albuterol sulfate [Ventolin HFA] 90 mcg/actuation HFA aerosol inhaler 2 puff inhalation Q6-8H Qty: 8.5 11RF montelukast 10 mg tablet 10 mg PO QDAY Qty: 90 3RF fluticasone propionate 50 mcg/actuation spray,suspension 2 intranasal DAILY ferrous sulfate 27 mg iron tablet 27 mg PO QDAY lorazepam 0.5 mg tablet 0.5 mg PO QDAY PRN folic acid 1 mg tablet 1 mg PO DAILY Follow Up/Referrals: Nathalie Dowling PA-C [Primary Care Provider] - Stand Alone Forms: [facility] Info Instructions
[2023-01-05 21:49] LABS: Basophils Absolute Auto 0.02 K/uL (0.00-0.30); Basophils Percent Auto 0.4 % (0.0-3.0); Eosinophils Absolute Auto 0.06 K/uL (0.00-0.50); Eosinophils Percent Auto 1.1 % (0.0-7.0); Hemoglobin* 8.6 gm/dL (12.0-16.0); Lymphocytes Percent Auto 33.8 % (20-44); Mean Corpuscular HGB Conc 34 gm/dL (32-36); Mean Corpuscular Hemoglobin 34 pg (26-34); Mean Corpuscular Volume 98 fL (80-100); Monocytes Percent Auto 2.3 % (0.0-11.0); Neutrophils Absolute Auto 3.32 K/uL (1.7-7.0); Neutrophils Percent Auto 62.4 % (42.0-72.0); Platelet Count* 241 K/uL (140-440); RDW Coefficient of Variation % 15.4 % (11.5-15.5); Red Blood Count 2.56 m/uL (4.00-5.20); White Blood Count* 5.32 K/uL (4.50-11.00)
[2023-01-05] MEDS: 0.9 % SODIUM CHLORIDE 1000 ml 1,000 ML IV ×2 (21:49→22:56)
[2023-01-05] MEDS: ONDANSETRON 2 MG/ML inj 4 MG IVP (21:49)
[2023-01-05 22:03] LABS: Slide Review Reflex No
[2023-01-05 22:07] LABS: Albumin* 3.7 g/dL (3.3-5.0); Chloride* 102 mmol/L (96-114); Potassium* 3.4 mmol/L (3.6-5.1); Sodium* 135 mmol/L (135-149)
[2023-01-05 22:09] LABS: Creatinine* 0.6 mg/dL (0.5-1.5); Est. Creatinine Clearance* 114.62; Estimated Glomerular Filt Rate 108 ml/min
[2023-01-05 22:10] LABS: Alanine Aminotransferase* 21 U/L (4-35); Alkaline Phosphatase* 60 U/L (40-150); Aspartate Amino Transferase* 24 U/L (12-35); Bilirubin Total* 0.5 mg/dL (0.1-1.5); Blood Urea Nitrogen* 14 mg/dL (7-30); Calcium* 8.7 mg/dL (8.4-10.6); Carbon Dioxide* 28 mmol/L (20-32); Glucose* 94 mg/dL (60-115); Total Protein* 6.4 g/dL (6.0-8.3)
[2023-01-05 22:11] LABS: Magnesium* 1.7 mg/dL (1.5-2.6)
[2023-01-05 22:13] LABS: C Reactive Protein* 0.8 mg/dL (0.5-1.0)
[2023-01-05 22:38] LABS: Appearance Urine Clear (Clear); Bilirubin Urine Negative (Negative); Blood Urine Negative (Negative); Color Urine Yellow (Yellow); Glucose Urine Negative (Negative); Ketones Urine Negative (Negative); Leukocyte Esterase Urine Negative (Negative); Nitrite Urine Negative (Negative); Protein Urine Negative (Negative); Urobilinogen Urine 0.2 (0.2-1.0); pH Urine 8.5 (5.0-8.5)
[2023-01-05 22:49] LABS: RBC Urine 0-2 (0-2); WBC Urine 0-2 (0-5)
[2023-01-06] VITALS: PULSE 78; O2SAT 99
== END 2023-01-06 00:14 | disposition home or self-care (01) ==
PROVIDERS: Emergency Provider Family Medicine; PCP Physician Assistant Medical
DX: R11.2 Nausea with vomiting, unspecified (principal)
CPT/HCPCS: 36415; 80053; 81001; 83735; 85025; 86140; 96374; 99284; J2405; J7030

== ENCOUNTER 2023-02-13 15:50 | Outpatient (CLI) | payer BC, SELFPAY ==
--- NOTE | 2023-02-13 16:00 | CRLHL7_ITS ---
For Patients: As a result of the Century Cures Act, medical imaging exams and procedure reports are released immediately into your electronic medical record. You may view this report before your referring provider. If you have questions, please contact your health care provider. INDICATION: Cervicalgia TECHNIQUE: CT of the neck with 89 ml Isovue 370 iodinated contrast agent. Coronal and sagittal reconstructions are included. COMPARISON: None FINDINGS: There is no mass or other lesion within the soft tissues of the suprahyoid or infrahyoid neck. No cervical lymphadenopathy. The oral cavity, nasopharyngeal, oropharyngeal and hypopharyngeal mucosal spaces are normal. Incidental ossification of the right arytenoid cartilage. Asymmetric enlargement of the right laryngeal ventricle. The piriform recesses are symmetric and normal in size. The supraglottic and infraglottic larynx are unremarkable. The airway including the trachea is normal and is patent. The parotid glands, submandibular and sublingual glands are normal in appearance. The thyroid gland is normal in appearance. The vascular structures opacify normally with contrast material. Moderate space narrowing. Disc osteophyte complex and uncovertebral joint hypertrophy at C5-6. Left C7-T1 facet arthropathy. No suspicious lytic or blastic osseous lesions. Moderate mucosal thickening in the maxillary sinuses. Visualized orbital and intracranial contents are unremarkable. Supraclavicular regions, mediastinum and soft tissues of the imaged chest wall are unremarkable. Visualized portions of the upper lungs are clear. IMPRESSION: 1. No suspicious enhancement or neck mass. Unremarkable deep soft tissues of the neck. 2. No evidence of acute inflammation. 3. No cervical lymphadenopathy. 4. Asymmetric enlargement of the right laryngeal ventricle which could be seen with unilateral vocal cord paresis, however there is normal symmetric sizes of the piriform recesses and no rotation of the right arytenoids. This could be an incidental finding. 5. Moderate maxillary sinus inflammatory mucosal disease. Please note that all CT scans at this facility use dose modulation, iterative reconstruction, and/or weight-based dosing when appropriate to reduce radiation dose to as low as reasonably achievable. Dictated by Ethan Zamora MD @ 02/14/2023 2:55:56 PM (Electronically Signed)
== END 2023-02-13 15:51 | disposition home or self-care (01) ==
PROVIDERS: PCP Physician Assistant Medical; Visit Provider Internal Medicine
DX: M54.2 Cervicalgia (principal); J32.0 Chronic maxillary sinusitis
CPT/HCPCS: 70491; Q9967

== ENCOUNTER 2023-02-22 13:57 | Outpatient (CLI) | payer BC, SELFPAY ==
--- NOTE | 2023-02-22 14:00 | CRLHL7_ITS ---
For Patients: As a result of the Century Cures Act, medical imaging exams and procedure reports are released immediately into your electronic medical record. You may view this report before your referring provider. If you have questions, please contact your health care provider. Indication: NON SMALL CELL LUNG CA Technique: Postcontrast CT chest, abdomen and pelvis. 89 cc Isovue 370 intravenous contrast. Please note that all CT scans at this facility use dose modulation, iterative reconstruction, and/or weight-based dosing when appropriate to reduce radiation dose to as low as reasonably achievable. Comparison: CT chest 04/10/2022 Findings: In the chest, 6 millimeter nodule is present within the right lower lobe, 3/63. This is similar to the prior study. Postoperative changes of partial left pneumonectomy. No enlarged mediastinal, hilar or axillary lymph nodes. No pleural or pericardial effusion. No fracture or intrinsic osseous lesion. In the abdomen, there is a stable subcentimeter cyst within the left hepatic lobe near the dome and within the left hepatic lobe medially. Additional sub cm cyst within the right hepatic lobe inferiorly. The adrenal glands are within normal limits. Normal spleen. The kidneys are normal. Normal gallbladder. The pancreas is unremarkable. A hiatal hernia is present measuring 2.4 cm. Subcentimeter retroperitoneal lymph nodes are present. No bowel obstruction. No ascites. In the pelvis, the bladder is normal. Incidental cervical nabothian cysts are present. No adnexal mass. No large uterine fibroid. No bowel obstruction or free air. No free fluid. A few scattered subcentimeter mesenteric lymph nodes are present. A benign bone island is located within the left iliac bone. No fracture is present. Impression: Postoperative changes of partial left pneumonectomy. Stable 6 millimeter right lower lobe pulmonary nodule. Stable sub cm cysts within the liver. No adenopathy in the chest, abdomen or pelvis. Please note that all CT scans at this facility use dose modulation, iterative reconstruction, and/or weight-based dosing when appropriate to reduce radiation dose to as low as reasonably achievable. Dictated by Ethan Buchanan MD @ 02/25/2023 10:16:24 AM (Electronically Signed)
== END 2023-02-22 13:58 | disposition home or self-care (01) ==
LOC: CT 13:57
PROVIDERS: PCP Physician Assistant Medical; Referring Provider Student in an Organized Health Care Education/Training Program
DX: C34.32 Malignant neoplasm of lower lobe, left bronchus or lung (principal); K76.89 Other specified diseases of liver
CPT/HCPCS: 71260; 74177; Q9967

== ENCOUNTER 2023-03-26 19:33 | Outpatient (REF) | payer BC, SELFPAY ==
[2023-03-26 20:01] LABS: Basophils Absolute Auto 0.04 K/uL (0.00-0.30); Basophils Percent Auto 0.7 % (0.0-3.0); Eosinophils Absolute Auto 0.22 K/uL (0.00-0.50); Eosinophils Percent Auto 3.6 % (0.0-7.0); Hematocrit 35.2 % (33.0-51.0); Hemoglobin* 12.1 gm/dL (12.0-16.0); Lymphocytes Absolute Auto 2.46 K/uL (0.90-2.90); Lymphocytes Percent Auto 40.7 % (20-44); Mean Corpuscular HGB Conc 34 gm/dL (32-36); Mean Corpuscular Hemoglobin 33 pg (26-34); Mean Corpuscular Volume 97 fL (80-100); Monocytes Percent Auto 7.3 % (0.0-11.0); Neutrophils Absolute Auto 2.89 K/uL (1.7-7.0); Neutrophils Percent Auto 47.7 % (42.0-72.0); Platelet Count* 232 K/uL (140-440); RDW Coefficient of Variation % 10.7 % (11.5-15.5); Red Blood Count 3.63 m/uL (4.00-5.20); Slide Review Reflex No; White Blood Count* 6.05 K/uL (4.50-11.00)
[2023-03-26 20:16] LABS: Albumin* 4.5 g/dL (3.3-5.0); Chloride* 104 mmol/L (96-114); Potassium* 3.6 mmol/L (3.6-5.1); Sodium* 140 mmol/L (135-149)
[2023-03-26 20:18] LABS: Anion Gap 10 mEq/L (7-15); Bilirubin Total* 0.3 mg/dL (0.1-1.5); Carbon Dioxide* 26 mmol/L (20-32); Creatinine* 0.9 mg/dL (0.5-1.5); Estimated Glomerular Filt Rate 77 ml/min
[2023-03-26 20:19] LABS: Alanine Aminotransferase* 20 U/L (4-35); Alkaline Phosphatase* 65 U/L (40-150); Aspartate Amino Transferase* 30 U/L (12-35); Blood Urea Nitrogen* 17 mg/dL (7-30); Calcium* 9.6 mg/dL (8.4-10.6); Glucose* 73 mg/dL (60-115); Total Protein* 7.8 g/dL (6.0-8.3)
== END 2023-03-26 19:34 | disposition home or self-care (01) ==
LOC: LAB 19:33
PROVIDERS: PCP Physician Assistant Medical; Visit Provider Student in an Organized Health Care Education/Training Program
DX: C34.32 Malignant neoplasm of lower lobe, left bronchus or lung (principal)
CPT/HCPCS: 36415; 80053; 84443; 85025

== ENCOUNTER 2023-04-10 10:30 | Outpatient (CLI) | payer BC, SELFPAY | END 2023-04-10 10:31 | disposition home or self-care (01) | PROVIDERS: PCP Physician Assistant Medical; Visit Provider Physician Assistant Medical | DX: N89.8 Other specified noninflammatory disorders of vagina (principal); E78.5 Hyperlipidemia, unspecified | CPT/HCPCS: 80053; 80061 ==

== ENCOUNTER 2023-11-24 16:42 | Emergency (ER) | payer BC, SELFPAY ==
[2023-11-24 16:46] VITALS: BP 169/81; PULSE 70; RESP 18; TEMP 36.3; O2SAT 97; BMI 27.3
--- NOTE | 2023-11-24 17:09 | ED.GENADULT ---
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 She is under a lot of financial stress as well as work stress, social is stress at home. And has had a history of anxiety. In the past she was on Zoloft and Ativan. At this time she has been on no antidepressants. She sees Dr. Dowling and she is interested in getting back in and seeing about anxiety medications. She works at [employer]. Related Data Home Medications ?Medication ?Instructions ?Recorded ?Confirmed ferrous sulfate 27 mg iron tablet 27 mg PO QDAY 01/21/22 11/06/23 fluticasone propionate 50 2 intranasal DAILY 09/05/22 11/06/23 mcg/actuation nasal spray,suspension folic acid 1 mg tablet 1 mg PO DAILY 10/31/22 11/06/23 Previous Rx's ?Medication ?Instructions ?Recorded albuterol sulfate 90 mcg/actuation 2 puff inhalation Q6-8H #8.5 grams 04/10/23 aerosol inhaler (Ventolin HFA) ketoconazole 2 % shampoo 1 applic topical 3XW #120 mL 04/10/23 montelukast 10 mg tablet 10 mg PO QDAY #90 tabs 04/10/23 fluticasone propionate 115 2 puff inhalation BID #12 grams 07/18/23 mcg-salmeterol 21 mcg/actuation HFA inhaler (Advair HFA) cetirizine 10 mg tablet 10 mg PO DAILY #100 tabs 10/31/23 famotidine 20 mg tablet 20 mg PO QHS #90 tabs 10/31/23 Allergies Allergy/AdvReac Type Severity Reaction Status Date / Time aspirin Allergy Intermediate Verified 11/06/23 09:45 penicillin G Allergy Intermediate rash Verified 11/06/23 09:45 Sulfa (Sulfonamide Allergy Intermediate Difficulty Verified 11/06/23 09:45 Antibiotics) Breathing clarithromycin Allergy Unknown Unknown Verified 11/06/23 09:45 penicillin V Allergy Unknown Hives Verified 11/06/23 09:45 Quinolones Allergy Unknown Verified 11/06/23 09:45 rofecoxib Allergy Unknown Verified 11/06/23 09:45 gluten Allergy Verified 11/06/23 09:45 [place] oil Allergy Unknown Unknown Uncoded 11/06/23 09:45 Milk derivatives Allergy Unknown ubknown Uncoded 11/06/23 09:45 Wheat bran Allergy Unknown Uncoded 11/06/23 09:45 Review of Systems Status of ROS: Reports: 6 or more systems reviewed and unremarkable except as noted in History and below [facility] Medical History Sleep disorder ?G47.9 - Sleep disorder, unspecified (ICD-10) Anxiety ?F41.9 - Anxiety disorder, unspecified (ICD-10) Moderate persistent asthma ?J45.40 - Moderate persistent asthma, uncomplicated (ICD-10) Adenocarcinoma, lung ?C34.90 - Malignant neoplasm of unspecified part of unspecified bronchus or lung (ICD-10) History of cervical dysplasia ?Z87.410 - Personal history of cervical dysplasia (ICD-10) Surgical History H/O sinus surgery ?Z98.890 - Other specified postprocedural states (ICD-10) History of lobectomy of lung ?Z90.2 - Acquired absence of lung [part of] (ICD-10) S/P bronchoscopy ?Z98.890 - Other specified postprocedural states (ICD-10) Status post laparoscopy ?Z98.890 - Other specified postprocedural states (ICD-10) Status post biopsy ?Z98.890 - Other specified postprocedural states (ICD-10) Family History Father Alcohol dependence Heart disease Other Asthma Social History Narrative: 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 No alcohol Smoking Status: Never smoker Do you use any of these nicotine containing products: None Second hand tobacco smoke exposure: No How often do you have a drink containing alcohol: never How often do you have six or more drinks on one occasion: Never AUDIT-C Alcohol total score: 0 Non-prescribed substance use: denies use Little interest or pleasure in doing things: more than half the days Feeling down, depressed, or hopeless: more than half the days service: No Exam Narrative: Exam Narrative: Objective: Patient's vital signs look unremarkable and within normal limits O2 sat is excellent at 97% heart rate is 70 HEENT is unremarkable no facial asymmetry check patient is mildly anxious but feeling much better Neck is supple Chest clear Heart rhythm regular 2/6 systolic murmur Abdomen benign soft Extremities are no edema neurologic nonfocal Const: Vital Signs, click to edit/add: Vital Signs - 24 hr 11/24/23 16:46 Temperature 97.4 F L Pulse Rate [Pulse Oximeter] 70 Respiratory Rate 18 Blood Pressure [Ri ght Upper Arm] 169/81 H Pulse Oximetry 97 Oxygen Delivery Me thod Room Air Course Vital Signs Vital signs: Initial Vital Signs Temperature 97.4 F L 11/24/23 16:46 Temperature Source Temporal Artery Scan 11/24/23 16:46 Pulse Rate 70 11/24/23 16:46 Pulse Rhythm Regular 11/24/23 16:46 Respiratory Rate 18 11/24/23 16:46 Blood Pressure 169/81 H 11/24/23 16:46 Blood Pressure Mean 110 H 11/24/23 16:46 Blood Pressure Position Sitting 11/24/23 16:46 Pulse Oximetry 97 11/24/23 16:46 Oxygen Delivery Method Room Air 11/24/23 16:46 Vital Signs Temperature 97.4 F L 11/24/23 16:46 Pulse Rate 70 11/24/23 16:46 Respiratory Rate 18 11/24/23 16:46 Blood Pressure 169/81 H 11/24/23 16:46 Pulse Oximetry 97 11/24/23 16:46 Oxygen Delivery Method Room Air 11/24/23 16:46 Temperature 97.4 F L 11/24/23 16:46 Pulse Rate 70 11/24/23 16:46 Respiratory Rate 18 11/24/23 16:46 Blood Pressure 169/81 H 11/24/23 16:46 Pulse Oximetry 97 11/24/23 16:46 Oxygen Delivery Method Room Air 11/24/23 16:46 Medications Administered Medications: Discontinued Medications Generic Name Dose Route Start Last Admin Trade Name Freq PRN Reason Stop Dose Admin Lorazepam 1 mg 11/24/23 17:08 11/24/23 18:59 Lorazepam 1 Mg Tablet PO 11/24/23 17:09 1 mg ONCE ONE Administration Medical Decision Making MDM Narrative Medical decision making narrative: [age] female with known anxiety with says a lot of severe psychosocial stress recently, she felt she had anxiety type attack today she had tachycardia. No real chest pain, she did call an ambulance she sat the ambulance they checked her out and they let her go to [place] in her own personal vehicle after an EKG and telemetry was reassuring. Her vital signs here are reassuring. She describes symptoms of anxiety. Her symptoms have gotten markedly better. At this point I think doing an EKG giving her some oral Ativan would be appropriate. Will lot her response Q. I think also having her have some Ativan at home 0.5 mg as needed would be reasonable. She should get in to . Her regular physician about antianxiety medicine and other stress and coping mow to modalities within the next few days. Addendum 5:40 p.m.: The patient did needs to get her car home and declines Ativan now she feels better. Her EKG shows by my read sinus bradycardia there is some artifact present she has limited R progression anteriorly. I think since she is here will do a CBC, some labs electrolytes point of care troponin, D-dimer. If these are reassuring she can take the 1 mg Ativan we were going to dispense here all able that for and she can take that home, all prescribe Ativan for home 0.5 mg b.i.d. for short period, needs to talk to primary care clinic about antianxiety medicine. Addendum 6:54 p.m. the patient's EKG shows normal sinus rhythm limited R-wave progression anteriorly by my read, labs look normal, troponin is negative, D-dimer negative, patient is able to go home at this time in take her Ativan, will prescribe a small amount of 0.5 mg b.i.d. as well. Caution was set affect. Follow up with regular doctor to discuss at home treatment for her anxiety. Lab Data Labs: Lab Results 11/24/23 Range/Units 17:50 WBC 6.63 (4.50-11.00) K/uL RBC 3.84 L (4.00-5.20) m/uL Hgb 11.9 L (12.0-16.0) gm/dL Hct 35.4 (33.0-51.0) % MCV 92 (80-100) fL MCH 31 (26-34) pg MCHC 34 (32-36) gm/dL RDW Coeff of Barber 11.8 (11.5-15.5) % Plt Count 225 (140-440) K/uL Neut % (Auto) 68.7 (42.0-72.0) % Lymph % (Auto) 22.8 (20-44) % Hall % (Auto) 6.5 (0.0-11.0) % Eos % (Auto) 1.5 (0.0-7.0) % Baso % (Auto) 0.5 (0.0-3.0) % Neut # (Auto) 4.56 (1.7-7.0) K/uL Lymph # (Auto) 1.51 (0.90-2.90) K/uL Hall # (Auto) 0.40 (0.00-0.90) K/UL Eos # (Auto) 0.10 (0.00-0.50) K/uL Baso # (Auto) 0.03 (0.00-0.30) K/uL Abs Immat Gran (auto) 0.00 (0.00-0.30) K/uL Imm/Tot Granulo (auto) 0.0 % D-Dimer Quant (PE/DVT) 0.22 (0.00-0.50) ug/ml Sodium 138 (135-149) mmol/L Potassium 3.8 (3.6-5.1) mmol/L Chloride 104 (96-114) mmol/L Carbon Dioxide 27 (20-32) mmol/L Anion Gap 7 (7-15) mEq/L BUN 18 (7-30) mg/dL Creatinine 0.9 (0.5-1.5) mg/dL Estimated Creat Clear 75.55 Estimated GFR 76 ml/min Glucose 96 (60-115) mg/dL Calcium 9.2 (8.4-10.6) mg/dL C-Reactive Protein < 0.5 L (0.5-1.0) mg/dL POC Troponin I 0.01 (0.01-0.04) ng/ml Discharge Plan Discharge Clinical Impression: Anxiety Patient Disposition: Home w/ Parent or Adult Condition: Stable Additional Instructions: Light activity, Ativan as needed cautioned about sedative effect of the Ativan, your lab tests look great today. Talk to your regular doctor about anxiety control in the next few days. Activity Level: Light activity Discharge Diet: Regular Prescriptions: No Action fluticasone propionate 50 mcg/actuation spray,suspension 2 intranasal DAILY albuterol sulfate [Ventolin HFA] 90 mcg/actuation HFA aerosol inhaler 2 puff inhalation Q6-8H Qty: 8.5 11RF montelukast 10 mg tablet 10 mg PO QDAY Qty: 90 3RF ketoconazole 2 % shampoo 1 applic topical 3XW Qty: 120 2RF ferrous sulfate 27 mg iron tablet 27 mg PO QDAY folic acid 1 mg tablet 1 mg PO DAILY famotidine 20 mg tablet 20 mg PO QHS Qty: 90 0RF cetirizine 10 mg tablet 10 mg PO DAILY Qty: 100 3RF fluticasone propion-salmeterol [Advair HFA] 115-21 mcg/actuation HFA aerosol inhaler 2 puff inhalation BID Qty: 12 5RF Follow Up/Referrals: Nathalie Dowling PA-C [Primary Care Provider] - Stand Alone Forms: [facility] Info Instructions
[2023-11-24 17:59] LABS: Basophils Absolute Auto 0.03 K/uL (0.00-0.30); Basophils Percent Auto 0.5 % (0.0-3.0); Eosinophils Percent Auto 1.5 % (0.0-7.0); Hematocrit 35.4 % (33.0-51.0); Hemoglobin* 11.9 gm/dL (12.0-16.0); Lymphocytes Absolute Auto 1.51 K/uL (0.90-2.90); Lymphocytes Percent Auto 22.8 % (20-44); Mean Corpuscular HGB Conc 34 gm/dL (32-36); Mean Corpuscular Hemoglobin 31 pg (26-34); Mean Corpuscular Volume 92 fL (80-100); Monocytes Percent Auto 6.5 % (0.0-11.0); Neutrophils Absolute Auto 4.56 K/uL (1.7-7.0); Neutrophils Percent Auto 68.7 % (42.0-72.0); Platelet Count* 225 K/uL (140-440); RDW Coefficient of Variation % 11.8 % (11.5-15.5); Red Blood Count 3.84 m/uL (4.00-5.20); White Blood Count* 6.63 K/uL (4.50-11.00)
[2023-11-24 18:09] LABS: Slide Review Reflex No
[2023-11-24 18:39] LABS: Chloride* 104 mmol/L (96-114); Potassium* 3.8 mmol/L (3.6-5.1); Sodium* 138 mmol/L (135-149)
[2023-11-24 18:42] LABS: Creatinine* 0.9 mg/dL (0.5-1.5); Est. Creatinine Clearance* 75.55; Estimated Glomerular Filt Rate 76 ml/min
[2023-11-24 18:43] LABS: Anion Gap 7 mEq/L (7-15); Blood Urea Nitrogen* 18 mg/dL (7-30); Calcium* 9.2 mg/dL (8.4-10.6); Carbon Dioxide* 27 mmol/L (20-32); Glucose* 96 mg/dL (60-115)
[2023-11-24 18:46] LABS: C Reactive Protein* < 0.5 mg/dL (0.5-1.0)
[2023-11-24 18:47] LABS: D Dimer Quantitative* 0.22 ug/ml (0.00-0.50)
[2023-11-24 18:51] LABS: Troponin, Point-of-Care* 0.01 ng/ml (0.01-0.04)
[2023-11-24] MEDS: LORazepam 1 MG TABLET PO (18:59)
== END 2023-11-24 19:11 | disposition home or self-care (01) ==
PROVIDERS: Emergency Provider Family Medicine; PCP Physician Assistant Medical
DX: F41.9 Anxiety disorder, unspecified (principal)
CPT/HCPCS: 36415; 80048; 84484; 85025; 85379; 86140; 93005; 99283; 99284; A9270

== ENCOUNTER 2023-12-20 10:46 | Outpatient (CLI) | payer BC, SELFPAY | END 2023-12-20 10:47 | disposition home or self-care (01) | LOC: NFLDREF 12-22 09:41 | PROVIDERS: PCP Physician Assistant Medical; Referring Provider Physician Assistant Medical; Visit Provider Nurse Practitioner Family | DX: R30.0 Dysuria (principal); R10.9 Unspecified abdominal pain | CPT/HCPCS: 87086 ==

== ENCOUNTER 2024-03-24 14:47 | Outpatient (CLI) | payer BC, SELFPAY | END 2024-03-24 14:48 | disposition home or self-care (01) | LOC: FRMREF 14:49 | PROVIDERS: PCP Physician Assistant Medical; Visit Provider Physician Assistant Medical | DX: R79.89 Other specified abnormal findings of blood chemistry (principal); E78.5 Hyperlipidemia, unspecified; E61.1 Iron deficiency; R10.9 Unspecified abdominal pain; R30.0 Dysuria | CPT/HCPCS: 80048; 82306; 82607; 82728; 83970; 84443 ==

== ENCOUNTER 2024-04-01 15:53 | Outpatient (CLI) | payer BC, SELFPAY ==
--- NOTE | 2024-04-01 16:00 | CRLHL7_ITS ---
For Patients: As a result of the Century Cures Act, medical imaging exams and procedure reports are released immediately into your electronic medical record. You may view this report before your referring provider. If you have questions, please contact your health care provider. INDICATION: Abdominal pain, left flank pain, fatigue. History of lung cancer. TECHNIQUE: CT abdomen and pelvis without contrast. COMPARISON: CT chest/abdomen/pelvis dated 02/22/2023. FINDINGS: Lower chest: Stable nodular opacities in the anterior right lower lobe, appearance is favored to reflect mucous plugging. No focal consolidation. Evaluation of solid organs is limited secondary to lack of IV contrast administration. Liver: Stable subcentimeter hypodense lesions in the left lobe of the liver. Gallbladder and bile ducts: Gallbladder is decompressed, suboptimally evaluated. Pancreas: Unremarkable. Spleen: Unremarkable. Adrenal glands: Unremarkable. Kidneys: No renal calculi or hydronephrosis bilaterally. Retroperitoneum: No lymphadenopathy. Bowel and mesentery: Bowel is not obstructed. No significant ascites, no pneumoperitoneum. Scattered colonic diverticulosis, without evidence of acute diverticulitis. Normal appendix. Bladder: Decompressed, suboptimally evaluated. Reproductive organs: Lobulated contour of the uterine fundus, likely reflective of underlying fibroids. Pelvic lymph nodes: No lymphadenopathy. Vessels: Unremarkable for unenhanced study. Abdominal wall: No acute abdominal wall abnormality. Bones: Multilevel degenerative changes of the spine. Stable left iliac bone island. IMPRESSION: 1. No renal calculi or hydronephrosis bilaterally. No acute intra-abdominal abnormality identified, within limitations of unenhanced study. 2. Stable nodular pulmonary opacities in the anterior right lower lobe, appearance is favored to reflect mucous plugging. Continued attention on follow-up is recommended. Please note that all CT scans at this facility use dose modulation, iterative reconstruction, and/or weight-based dosing when appropriate to reduce radiation dose to as low as reasonably achievable. Dictated by Flo Sumner MD @ 04/04/2024 2:50:40 PM (Electronically Signed)
== END 2024-04-01 15:54 | disposition home or self-care (01) ==
LOC: CT 15:55
PROVIDERS: PCP Physician Assistant Medical; Visit Provider Physician Assistant Medical
DX: R10.9 Unspecified abdominal pain (principal); R53.83 Other fatigue; Z85.118 Personal history of other malignant neoplasm of bronchus and lung
CPT/HCPCS: 74176

== ENCOUNTER 2025-02-01 07:49 | Outpatient (CLI) | payer BC, SELFPAY ==
[2025-02-01 08:46] LABS: Trichomonas No Trichomonas Seen (None Seen)
[2025-02-01 16:31] LABS: Chlamydia DNA Amplified* NOT DETECTED (No Detected); GC DNA Amplified* NOT DETECTED (No Detected)
== END 2025-02-01 07:50 | disposition home or self-care (01) ==
PROVIDERS: PCP Physician Assistant Medical; Visit Provider Physician Assistant Medical
DX: N89.8 Other specified noninflammatory disorders of vagina (principal); N39.0 Urinary tract infection, site not specified; Z72.51 High risk heterosexual behavior; Z11.4 Encounter for screening for human immunodeficiency virus [HIV]; Z11.59 Encounter for screening for other viral diseases; Z11.3 Encounter for screening for infections with a predominantly sexual mode of transmission
CPT/HCPCS: 86703; 86706; 87086; 87210; 87340; 87491; 87536; 87591

== ENCOUNTER 2025-02-09 13:35 | Emergency (ER) | payer BC, SELFPAY ==
--- OUTSIDE RECORDS SUMMARY | 2025-02-09 13:38 | XMS_ITS ---
Author Name Interface, [id number] lity Address [address] [place] [address] Oncology Address [address] [place] [address] Allergies and Adverse Reactions Plan Reason for Visit Encounters Diagnostic Results Medications Problems Vital Signs Notes Section
--- OUTSIDE RECORDS SUMMARY | 2025-02-09 13:38 | XMS_ITS | Clinical Summary ---
Author Organization [facility] Address [address] [place] [address] Care Team Providers Care Chiropractor Sole Practitioner Name Role Phone Unavailable Primary Care Provider Unavailabl e Source Comments Patient records contain information from all sites at [facility]. For routine questions regarding patient records, call [phone] during business hours, M-F 8:00 AM - 5:00 PM Central Time. Record requests for emergency care only can be directed to [phone] at any time.[facility] Allergies Active Allergy Reactions Criticality Noted Date Comments Aspirin Shortness of breath,Hives (Reselect Reaction),Shortness of breath (Reselect Reaction) High 04/21/2009 Cigarette Smoke GI intolerance 05/21/[address] NAUSEATES, HARD TIME BREATHING Clarithromycin Other (see comments) 04/21/2009 PN: Unknown Reaction [place] Oil Other (see comments) 06/05/2022 Gluten GI intolerance,Nausea Only 06/05/2022 Milk Other (see comments) 06/05/2022 Milk derivatives Penicillins Hives (Reselect Reaction) 04/21/2009 Pollen Extracts Other (see comments) 09/15/2024 Snow mold, weeds, smoke in the air, year round sinus allergies. Prednisone Other (see comments) 05/27/2017 Quinolones Other (see comments) 04/21/2009 PN: Unknown Reaction Soybean Oil Other (see comments) 01/18/2016 PN: positive on allergy test Sulfa (Sulfonamide Antibiotics) Other (see comments) 07/24/2016 Wheat Other (see comments) 07/09/2022 Wheat Bran Other (see comments) 06/05/2022 Medications acetaminophen (TYLENOL) 500 mg tablet Take 1,000 mg by mouth as needed. 3 Active albuterol 90 mcg/actuation inhaler Inhale 2 puffs. 6 Active budesonide-form oteroL (SYMBICORT) 160-4.5 mcg/actuation inhaler Inhale 2 puffs. Acti ve cetirizine (ZyrTEC) 10 mg tablet 10 mg at bedtime. 6 Active fluticasone propionate (FLONASE) 50 mcg/actuation nasal spray Administer 2 sprays into each nostril as needed. Active montelukast (SINGULAIR) 10 mg tablet Take 10 mg by mouth at bedtime. 6 Active triamcinolone (NASACORT) 55 mcg/actuation nasal spray Administer 1 spray into each nostril daily. Active polyethylene glycol-electrol ytes (GoLYTELY) 236-22.74-6.74 -5.86 gram solution Drink 1st portion of prep at 6 PM the evening before. 2nd portion must be started 3 hours before and finished 2 hours prior to report time 4000 mL 3 Active Additional Information Patient not taking.Reported on 09/15/2024 polyethylene glycol-electrol ytes (GoLYTELY) 236-22.74-6.74 -5.86 gram solution Drink 1st portion of prep at 6 PM the evening before. 2nd portion must be started 3 hours before and finished 2 hours prior to report time 4000 mL 4 Active Additional Information Patient not taking.Reported on 09/15/2024 cyanocobalamin (vitamin B-12) 1,000 mcg tablet Take 1,000 mcg by mouth daily. Active melatonin 3 mg tablet Take 3 mg by mouth at bedtime as needed for sleep. Melatonin herbal blend. Active LORazepam (Ativan) 0.5 mg tablet Take 1 tablet (0.5 mg total) by mouth once for 1 dose. Take 30 minutes before brain MRI 1 tablet 5 Active LORazepam (Ativan) 0.5 mg tablet Take 1 tablet (0.5 mg total) by mouth once for 1 dose. Take 15 minutes prior to MRI 1 tablet 5 Active Active Problems Problem Noted Date Diagnosed Date Malignant Neoplasm Of Lung Lower Lobe Or Bronchu s Left 02/14/2023 Cancer Staging:Pathologic stage from 07/10/2022:Stage IIB(pT2b, pN1, cM0) - Signed by Lois Avila APRN, C.N.P., M.S. on 05/28/2023 Social History Tobacco Use Types Packs/Day Years Used Date Smoking Tobacco: Never Passive Smoke Exposure: Past Smokeless Tobacco: Never Tobacco Cessation:Counseling Given: Not Answered Comments Unknown Sex and Gender Information Value Date Recorded Sex Assigned at Female 11/28/2023 12:32 AM CDT Legal Sex Female 5:49 PM RUBBER DOWN Gender Identity Female 11/28/2023 12:32 AM CDT Sexual Orientation Straight 11/28/2023 12 :32 AM CDT Last Filed Vital Signs Vital Sign Reading Time Taken Comments Blood Pressure 126/79 09/21/2024 9:46 AM CDT Pulse 69 09/21/2024 9:46 AM CDT Temperature 36.4 C (97.5 F) 09/21/2024 9:46 AM CDT Respiratory Rate 16 09/21/2024 9:46 AM CDT Oxygen Saturation 98% 09/21/2024 9:46 AM CDT Inhaled Oxygen Concentration - - Weight 85.3 kg (188 lb 0.8 oz) 09/21/2024 9:46 A M CDT Height 176.4 cm (5' 9.45) 09/21/2024 9:46 AM CD T Body Mass Index 27.41 09/21/2024 9:46 AM CDT Plan of Treatment Health Maintenance Due Date Last Done Comments CT Colonography 1970 Cervical/Vaginal Cancer Screening 1970 Cologuard 1970 Colonoscopy 1970 Colorectal Cancer Screening 1970 FIT 1970 HIV Screening 1970 Hepatitis C Screening 1970 Lipid (Cholesterol) Screening 1970 Mammogram 1970 Hepatitis B Vaccines (1 of 3 - 19+ 3-dose series) 1989 Pneumococcal vaccine (50+ years) (1 of 1 - PCV) 2020 Zoster Vaccines (1 of 2) 2020 COVID-19 Vaccine (3 - season) 2024 10/11/2020, 09/09/2020 Depression Screening (Annual PHQ-2) 06/17/2024 Influenza Vaccine (#1) 2025 Fasting Glucose for Diabetes Screening 09/18/2027 09/17/2024, 05/22/2024, 12/24/2023, Additional history exists DTaP,Tdap,and Td Vaccines (2 - Td or Tdap) 09/29/2031 09/28/2021, 10/08/2010 IPV Vaccines Aged Out No longer eligi ble based on patient's age to complete this topic Procedures Procedure Name Priority Date/Time Associated Diagnosis Comments COMPREHENSIVE METABOLIC PANEL, S/P Routine 09/17/2024 12:37 PM CDT Malignant Neoplasm Of Lung Lower Lobe Or Bronchus Left (HCC) from Last 3 Months or Most Recently Relevant to Health Maintenance Results * (ABNORMAL) Comprehensive Metabolic Panel (09/17/2024 12:37 PM CDT) Potassium, S 4.2 3.6 - 5.2 mmol/L 09/17/2024 1:49 PM CDT DTL Sodium, S 146(H) 135 - 145 mmol/L 09/17/2024 1:49 PM CDT DTL Chloride, S 108(H) 98 - 107 mmol/L 09/17/2024 1:49 PM CDT DTL Bicarbonate, S 25 22 - 29 mmol/L 09/17/2024 1:49 PM CDT DTL Anion Gap 13 7 - 15 09/17/2024 1:49 PM CDT DTL BUN (Blood Urea Nitrogen), S 13 6 - 21 mg/dL 09/17/2024 1:49 PM CDT DTL Creatinine 0.98 0.59 - 1.04 mg/dL 09/17/2024 1:49 PM CDT DTL Estimated GFR (eGFR) 69 >=60 mL/min/BS A 09/17/2024 1:49 PM CDT DTL Comment: Estimated GFR calculated using the 2020 CKD_EPI creatinine equation. Calcium, Total, S 9.5 8.6 - 10.0 mg/dL 09/17/2024 1:49 PM CDT DTL Glucose, S 83 70 - 140 mg/dL 09/17/2024 1:49 PM CDT DTL Protein, Total, S 6.7 6.3 - 7.9 g/dL 09/17/2024 1:49 PM CDT DTL Albumin, S 4.3 3.5 - 5.0 g/dL 09/17/2024 1:49 PM CDT DTL Aspartate Aminotransferase (AST), S 24 8 - 43 U/L 09/17/2024 1:49 PM CDT DTL Alkaline Phosphatase, S 75 35 - 104 U/L 09/17/2024 1:49 PM CDT DTL Alanine Aminotransferase (ALT), S 21 7 - 45 U/L 09/17/2024 1:49 PM CDT DTL Bilirubin, Total, S 0.3 0.0 - 1.2 mg/dL 09/17/2024 1:49 PM CDT DTL Blood (Blood, Venous) 09/17/2024 12:37 PM CDT 09/17/2024 1:22 PM CDT Sharon Eldridge M.D. LAB BLOOD ADD-ON Final Res ult [facility] [address] [place] [address], [place] DTL [facility] [address] [place] [address] from Last 3 Months or Most Recently Relevant to Health Maintenance Insurance [facility] [place] [id number]
--- OUTSIDE RECORDS SUMMARY | 2025-02-09 13:39 | XMS_ITS | Clinical Summary ---
Author Organization [employer] [facility] Address [address] [place] [address] Care Team Providers Care Compensation And Hris Analyst Name Role Phone DiazgovindVitoter Primary Care Provide r Allergies Active Allergy Reactions Criticality Noted Date Comments Aspirin Hives 07/24/2016 Ciprofloxacin *Unknown 04/21/2009 PN: Unknown Reaction Clarithromycin Other - Describe In Comment Field 04/21/2009 PN: Unknown Reaction [place] Oil *Unknown 06/05/2022 Gluten GI Upset 06/05/2022 Milk *Unknown 06/05/2022 Milk derivatives Penicillin G Hives 07/24/2016 Prednisone *Unknown 05/27/2017 Quinolones *Unknown 03/01/2020 Rofecoxib *Unknown,*Unknown - Follow up needed 05/27/2017 Sulfa (Sulfonamide Antibiotics) Angioedema 07/24/2016 Wheat Bran *Unknown 06/05/2022 Medications albuterol HFA 90 mcg/actuation inhalerIndicatio ns:Acute bronchospasm Inhale 2 Puffs by mouth 4 times daily if needed. 6.7 g 7 Active Additional Information Patient taking differently:2 Puff InhalationQ 6H, Q 6-8 hours, Reported on 06/05/2022 budesonide-formo teroL (SYMBICORT) 80-4.5 mcg/actuation (80-4.5 mcg each actuation) inhaler Inhale 2 Puffs by mouth 2 times daily. 1 Inhaler 0 Active triamcinolone, 55 mcg each actuation, nasal (NASACORT AQ) 55 mcg nasal spray Inhale 2 Sprays into both nostrils once daily. 16.5 g 0 Active cetirizine (ZYRTEC) 10 mg tablet Take 10 mg by mouth once daily. Active ferrous sulfate, 65 mg elemental, tablet Take 27 mg by mouth once daily. Active sertraline (ZOLOFT) 50 mg tablet Take 50 mg by mouth once daily. Active montelukast (SINGULAIR) 10 mg tablet Take 10 mg by mouth once daily. Active cyclobenzaprine (FLEXERIL) 10 mg tabletIndication s:Acute left-sided thoracic back pain Take 1 Tablet (10 mg) by mouth at bedtime if needed for Muscle Spasm. 30 Tablet 1 4 Active Active Problems Problem Noted Date Diagnosed Date Anxiety 12/14/2016 Asthma, moderate persistent 12/14/2016 Encounters Date Type Department Care Team Description 12/15/2024 11:30 AM CDT Office Visit [address] [address] Rober Tubbs, DPGalo Toe Pain/problem (Bilateral great ingrown toenails, discoloration) 12/15/2024 Travel 12/14/2024 Orders Only [facility] Scanner 1 scan: (1-Ord) INCOMING RECORDS-PATHOLOGY, [facility], 12/14/2024 from Last 3 Months Immunizations Immunization Administration Dates Next Due MMR 04/10/1990 Td, Preservative Free (age >= 7 Years) 1 Tdap 09/28/2021 Family History Medical History Relation Name Comments Genetic Other cataracts -gran dmother~diabetes - grandfather Relation Name Status Comments Other Social History Tobacco Use Types Packs/Day Years Used Date Smoking Tobacco: Never Smokeless Tobacco: Never Tobacco Cessation:Counseling Given: Yes Alcohol Use Standard Drinks/Week Comments No 0 (1 standard drink = 0.6 oz pur e alcohol) PHQ-2 Answer Date Recorded PHQ-2 TOTAL SCORE 0 12/24/2023 Social Connections Answer Date Recorded Do you often feel lonely or isolated from those around you? 0 12/24/2023 Financial Resource Strain Answer Date R ecorded Difficulty of Paying Living Expenses 3 12/24/2023 Difficulty of Paying Living Expenses Not on file 12/24/2023 Food Insecurity Answer Date Recorded Do you worry your food will run out before you are able to buy more? 1 12/24/2023 Transportation Needs Answer Date Record ed Does lack of transportation keep you from medica l appointments? 1 12/24/2023 Does lack of transportation keep you from work, meetings or getting things that you need? 1 12/24/2023 Housing Stability Answer Date Recorded What is your housing situation today? 1 12/24/2023 Utilities Answer Date Recorded Do you have trouble paying f or utilities (for example, heat, electricity, water, phone)? 1 12/24/2023 Comments No Sex and Gender Information Value Date Recorded Sex Assigned at Not on file Legal Sex Female 5:43 AM CLINICAL PSYCHOLOGIST PRIVATE PRACTICE Gender Identity Not on file Sexual Orientation Not on file Obstetrics History Last Filed Vital Signs Vital Sign Reading Time Taken Comments Blood Pressure 118/78 12/24/2023 2:44 PM CDT Pulse 72 12/24/2023 2:44 PM CDT Temperature 36.1 C (96.9 F) 06/06/2022 8:50 AM CLINICAL PSYCHOLOGIST PRIVATE PRACTICE Respiratory Rate 18 06/06/2022 9:15 AM CLINICAL PSYCHOLOGIST PRIVATE PRACTICE Oxygen Saturation 97% 12/24/2023 2:44 PM CDT Inhaled Oxygen Concentration - - Weight 84.4 kg (186 lb) 12/24/2023 2:44 PM CDT Height 175.3 cm (5' 9) 12/24/2023 2:44 PM CDT Body Mass Index 27.47 12/24/2023 2:44 PM CDT Plan of Treatment Health Maintenance Due Date Last Done Comments HIV for age 15-65 1985 Hepatitis C screening for ag e 18-79 1988 Hepatitis B series for 19+ ( 1 of 3 - 19+ 3-dose series) 1989 Pneumococcal series for age 50+ (1 of 2 - PCV) 1989 Colonoscopy through age 75 2015 Lipids for age 45-75 2015 Mammogram for age 45-75 2015 Zoster (shingles) series for age 50+ (1 of 2) 2020 COVID-19 vaccine series ( - 2023- season) 2024 10/11/2020, 09/09/2020 BMI (ht and wt on same day) for age 18+ 12/23/2024 12/24/2023, 12/14/2016 Depression screening for age 12+ 12/23/2024 12/24/19 24, 12/14/2016 Influenza Vaccine (#1) 2025 Pap test for age 21-65 07/20/2027 5 (Verified in Care Everywhere or Patient Record), 02/22/2021, 02/22/2021 Tetanus booster 09/29/2031 09/28/2021, 10/08/2010 Procedures Procedure Name Priority Date/Time Associated Diagnosis Comments SCAN CORRESP-LABORATORY RESULTS 12/14/2024 12:00 AM CDT HPV HIGH RISK Routine 02/22/2021 1:35 PM CDT from Last 3 Months or Most Recently Relevant to Health Maintenance Results * SCAN CORRESP-LABORATORY RESULTS (12/14/2024 12:00 AM CDT) us Scanner OTHER Final Result * HPV HIGH RISK (02/22/2021 1:35 PM CDT) TYPE 16 Negative Negative 02/27/2021 11:22 AM CDT [facility] LABORATORY TYPE 18 Negative Negative 02/27/2021 11:22 AM CDT [facility] TRAL LABORATORY OTHER HIGH RISK TYPES Negative Negative 02/27/2021 11:22 AM CDT [facility] TR[facility] LAB[facility] Other (Cervical/Vagina l) 02/22/2021 1:35 PM CDT 02/24/2021 8:02 AM CDT [facility]ative [facility] 02/27/2021 11:22 AM CDT HPV types 16, 18, 31, 33, 35, 39, 45, 51, 52, 56, 58, 59, 66 and 68 DNA were undetectable or below the pre-set threshold. Methodology: Thaddeus Ezequiel 4800 HPV Test us Corin Ibarra MD MICROBIOLOGY Fi nal Result [facility] [address] [place] [address], from Last 3 Months or Most Recently Relevant to Health Maintenance Insurance [facility] Advance Directives * Full Code (Latest Code Status on File) Date Activated Date Inactivated Comments 06/06/2022 8:10 AM 06/06/2022 12:14 PM Question Answer Comments Code Status Discussion: Unable to Assess Preferences, Provider to review later Care Teams Compensation And Hris Analyst Relationship Specialty [place] [address] [place] [address] PCP - General Family Practice 12/24/23
--- OUTSIDE RECORDS SUMMARY | 2025-02-09 13:39 | XMS_ITS ---
Author Name Interface, [id number] lity Address [address] [place] [address] Oncology Address [address] [place] [address] Allergies and Adverse Reactions Plan Reason for Visit Encounters Diagnostic Results Medications Problems Vital Signs Notes Section
--- OUTSIDE RECORDS SUMMARY | 2025-02-09 13:39 | XMS_ITS ---
Author Name Interface, [id number] lity Address [address] [place] [address] Oncology Address [address] [place] [address] Allergies and Adverse Reactions Plan Reason for Visit Encounters Diagnostic Results Medications Problems Vital Signs Notes Section
--- OUTSIDE RECORDS SUMMARY | 2025-02-09 13:39 | XMS_ITS ---
Author Name Interface, [id number] lity Address [address] [place] [address] Oncology Address [address] [place] [address] Allergies and Adverse Reactions Plan Reason for Visit Encounters Diagnostic Results Medications Problems Vital Signs
--- OUTSIDE RECORDS SUMMARY | 2025-02-09 13:39 | XMS_ITS ---
Author Name Interface, [id number] lity Address [address] [place] [address] Oncology Address [address] [place] [address] Allergies and Adverse Reactions Plan Reason for Visit Encounters Diagnostic Results Medications Problems Vital Signs Notes Section
--- OUTSIDE RECORDS SUMMARY | 2025-02-09 13:39 | XMS_ITS ---
Author Name Interface, S3Pbnxjlw lity Address [address] [place] [address] Oncology Address [address] [place] [address] Allergies and Adverse Reactions Plan Reason for Visit Encounters Diagnostic Results Medications Problems Vital Signs
--- OUTSIDE RECORDS SUMMARY | 2025-02-09 13:39 | XMS_ITS ---
Author Name Interface, [id number] lity Address [address] [place] [address] Oncology Address [address] [place] [address] Allergies and Adverse Reactions Plan Reason for Visit Encounters Diagnostic Results Medications Problems Vital Signs Notes Section
--- OUTSIDE RECORDS SUMMARY | 2025-02-09 13:39 | XMS_ITS ---
Author Name Interface, A1Zklproc lity Address [address] [place] [address] Oncology Address [address] [place] [address] Allergies and Adverse Reactions Plan Reason for Visit Encounters Diagnostic Results Medications Problems Vital Signs Notes Section
--- OUTSIDE RECORDS SUMMARY | 2025-02-09 13:39 | XMS_ITS ---
Author Name Interface, M1Rqjjigh lity Address [address] [place] [address] Oncology Address [address] [place] [address] Allergies and Adverse Reactions Plan Reason for Visit Encounters Diagnostic Results Medications Problems Vital Signs Notes Section
--- OUTSIDE RECORDS SUMMARY | 2025-02-09 13:39 | XMS_ITS ---
Author Name Interface, T8Okenpef lity Address [address] [place] [address] Oncology Address [address] [place] [address] Allergies and Adverse Reactions Plan Reason for Visit Encounters Diagnostic Results Medications Problems Vital Signs Notes Section
[2025-02-09 13:40] VITALS: BP 117/79; PULSE 77; RESP 18; TEMP 36.2; O2SAT 96; BMI 27.7
--- OUTSIDE RECORDS SUMMARY | 2025-02-09 13:40 | XMS_ITS | Clinical Summary ---
Author Organization [employer] Address [address], [place] [address] Care Team Providers Care Cycling Instructor Name Role Phone Clinician, Not Found MD Primary Care Provider Un available Source Comments You are receiving this document as you are listed as the primary care provider,follow-up provider, or the patient has been referred to you for consultation.This is in compliance with the Medicare and[facility] EHR Incentive Program,which states Providers who transition their patient to another setting of careor provider of care or refers their patient to another provider of care shouldprovide summary care record for each transition of care or referral. [employer] Allergies Active Allergy Reactions Criticality Noted Date Comments Aspirin Hives,Breathing Difficulty High 04/21/2009 Ciprofloxacin Other, see comments 04/21/2009 PN: Unknown Reaction Clarithromycin Other, see comments 04/21/2009 PN: Unknown Reaction [place]-Containing Products Other, see comments 01/18/2016 PN: positive on allergy test Penicillins Hives 04/21/2009 Soybean Oil Other, see comments 01/18/2016 PN: positive on allergy test Sulfa Antibiotics Respiratory Distress High 04/21/20 09 Triticum Aestivum Diarrhea,Gastrointes tinal 01/18/2016 PN: gluten intolerance Medications cetirizine (ZYRTEC) 10 MG tablet Take 10 mg by mouth daily (every 24 hours). 6 Active fluticasone (FLONASE) 50 MCG/ACT nasal solutionIndicati ons:Acute non-recurrent sinusitis, unspecified location Place 2 Sprays into both nostrils daily. Active LORazepam (ATIVAN) 0.5 MG tabletIndication s:KATIA (generalized anxiety disorder) (HRC) Take 1 Tab by mouth daily as needed for Other (panic attack). 10 Tab 0 6 Active Additional Information Patient not taking.Reported on 06/20/2018 ALBUterol sulfate HFA 108 (90 BASE) MCG/ACT inhalerIndicatio ns:Acute non-recurrent sinusitis, unspecified location Inhale 1-2 Puffs every 4 hours as needed for Wheezing. 18 g 11 6 Active montelukast (SINGULAIR) 10 MG tabletIndication s:Acute non-recurrent sinusitis, unspecified location Take 1 Tab by mouth every evening. 30 Tab 11 6 Active beclomethasone (QVAR) 40 MCG/ACT inhaler Inhale 2 Puffs two times a day. Rinse mouth/gargle after use 8.7 g 3 7 Active ALBUterol sulfate HFA (VENTOLIN HFA) 108 (90 BASE) MCG/ACT inhaler Inhale 1-2 Puffs every 4 hours as needed for Wheezing. 18 g 12 7 Active Active Problems No known active problems Immunizations Immunization Administration Dates Next Due MMR 04/10/1990 Social History Tobacco Use Types Packs/Day Years Used Date Smoking Tobacco: Never Smokeless Tobacco: Never Alcohol Use Standard Drinks/Week Comments No 0 (1 standard drink = 0.6 oz pur e alcohol) Comments No Sex and Gender Information Value Date Recorded Sex Assigned at Not on file Legal Sex Female 4:49 AM CDT Gender Identity Not on file Sexual Orientation Not on file Last Filed Vital Signs Vital Sign Reading Time Taken Comments Blood Pressure 130/80 06/20/2018 3:43 PM TYRE FITTER Pulse 72 06/20/2018 3:43 PM TYRE FITTER Temperature 36.9 C (98.5 F) 06/15/2018 3:44 PM TYRE FITTER Respiratory Rate 16 06/15/2018 3:44 PM TYRE FITTER Oxygen Saturation 97% 06/15/2018 3:44 PM TYRE FITTER Inhaled Oxygen Concentration - - Weight 87.4 kg (192 lb 11.2 oz) 06/20/2018 3:43 PM TYRE FITTER Height - - Body Mass Index - - Plan of Treatment Health Maintenance Due Date Last Done Comments Cervical Cancer Screening Due 1970 Colon Cancer Screening Plan Due 1970 Hep C Screening (Preventive Services) 1970 Mammogram 1970 HIV Screening (Preventive Services) 1986 Adult Preventive Visit 1988 HepB Vaccine (1) 1989 DTaP/Tdap/Td Vaccine (1 - Tdap) 10/09/2010 1 Cholesterol 2015 Pneumococcal Vaccine 50+ Yrs (1 of 1 - PCV) 2020 Zoster/Shingles Vaccine (1 of 2) 2020 COVID-19 Vaccine (2 - 2023-2 5 season) 2024 09/09/2020 Influenza Vaccine (#1) 2025 HepA Vaccine Aged Out No longer eligi ble based on patient's age to complete this topic Hib Vaccine Aged Out No longer eligi ble based on patient's age to complete this topic IPV (Polio) Vaccine Aged Out No longe r eligible based on patient's age to complete this topic MCV4 Vaccine Aged Out No longer eligi ble based on patient's age to complete this topic Meningococcal B Vaccine Aged Out No l onger eligible based on patient's age to complete this topic Care Teams Cycling Instructor Relationship Specialty Start Date End Date Clinician, Not Found, [place] [address] PCP - General 01/18/16
--- OUTSIDE RECORDS SUMMARY | 2025-02-09 13:40 | XMS_ITS | CCD ---
Author Name Interface, B9Pktrhiv lity Address [address] [place], [place] [address] Organization [facility] Address [facility] [place] [address] Care Team Providers Care Stove Carriage Operator Name Role Phone Kevin CORTEZ, Hesham Unavailable Unavailable Ang CORTEZ, Manuel Unavailable Unavailable Allergies and Adverse Reactions Reason for Visit Functional Status Diagnostic Results Medications Problems Social History
--- OUTSIDE RECORDS SUMMARY | 2025-02-09 13:40 | XMS_ITS ---
Author Name Interface, J5Qvsbonx lity Address [address] [place] [address] Oncology [address] [place] [address] Allergies and Adverse Reactions Plan Reason for Visit Encounters Diagnostic Results Medications Problems Vital Signs Notes Section
--- OUTSIDE RECORDS SUMMARY | 2025-02-09 13:40 | XMS_ITS ---
Author Name Interface, D9Ujychiv lity Address [address] [place] [address] Oncology Address [address] [place] [address] Allergies and Adverse Reactions Plan Reason for Visit Encounters Diagnostic Results Medications Problems Vital Signs Notes Section
--- OUTSIDE RECORDS SUMMARY | 2025-02-09 13:40 | XMS_ITS | Clinical Summary ---
Author Organization [facility] Address [address] [place] [address] Care Team Providers Care Hydroponics Worker Name Role Phone Nitesh Derrickfatmata DANETTE Primary Care Provider [phone] Allergies Active Allergy Reactions Criticality Noted Date Comments Aspirin Difficulty breathing,Hives High 04/21/2009 Clarithromycin Other (See Comments) 04/21/2009 PN: Unknown Reaction [place]-Containing Products Other (See Comments) 01/18/2016 PN: positive on allergy test Gluten Meal GI Disturbance 07/09/2022 Milk-Related Compounds Unknown 07/09/2022 Penicillins Hives 04/21/2009 Quinolones Unknown 07/09/2022 Rofecoxib Unknown 05/27/2017 Soybean Oil Other (See Comments) 01/18/2016 PN: positive on allergy test Sulfa Antibiotics Shortness Of Breath High 9 Triticum Aestivum Diarrhea,GI Disturbance 01/18/2016 PN: gluten intolerance Wheat Unknown 07/09/2022 Medications montelukast (SINGULAIR) 10 MG tabletIndicatio ns:Seasonal Allergic Rhinitis Take 10 mg by mouth At Bedtime Active budesonide-form oterol (SYMBICORT) 160-4.5 MCG/ACT InhalerIndicati ons:Asthma Inhale 2 puffs into the lungs 2 times daily Active cetirizine (ZYRTEC) 10 MG tablet Take 10 mg by mouth daily Active FERROUS SULFATE POIndications:I maia Deficiency Take 27 mg by mouth daily (with breakfast) Active albuterol (PROAIR HFA/PROVENTIL HFA/VENTOLIN HFA) 108 (90 Base) MCG/ACT inhalerIndicati ons:Asthma Inhale 2 puffs into the lungs 2 times daily as needed for shortness of breath or wheezing Active triamcinolone (NASACORT) 55 MCG/ACT nasal aerosol [place] 2 sprays into both nostrils daily Active carboxymethylce llulose PF (REFRESH PLUS) 0.5 % ophthalmic solution Place 1 drop into both eyes daily as needed for dry eyes Active glucose (BD GLUCOSE) 4 g chewable tablet Take 1 tablet by mouth every hour as needed for low blood sugar Active acetaminophen (TYLENOL) 500 MG tabletIndicatio ns:Primary cancer of left lower lobe of lung (H) Take 2 tablets (1,000 mg) by mouth 4 times daily 120 tablet 3 Active oxyCODONE (ROXICODONE) 5 MG tabletIndicatio ns:Primary cancer of left lower lobe of lung (H) Take 1 tablet (5 mg) by mouth every 4 hours as needed for moderate pain (4-6) 40 tablet 3 Active Active Problems Problem Noted Date Diagnosed Date Malignant neoplasm of lower lobe of left lung Primary cancer of left lower lobe of lung 2022 Social History Tobacco Use Types Packs/Day Years Used Date Smoking Tobacco: Never Passive Smoke Exposure: Never Smokeless Tobacco: Never Tobacco Cessation:Counseling Given: Not Answered Adolescent Education Answer Date Record ed Getting School Help Needed Not on file 03/18 Comments No Sex and Gender Information Value Date Recorded Sex Assigned at Not on file Legal Sex Female 3:43 AM TAX SERVICES PROFESSIONAL Gender Identity Not on file Sexual Orientation Not on file Last Filed Vital Signs Vital Sign Reading Time Taken Comments Blood Pressure 136/86 07/15/2022 8:26 AM TAX SERVICES PROFESSIONAL Pulse 70 11/12/2022 4:24 PM CDT Temperature 36.4 C (97.6 F) 11/12/2022 4:24 PM CDT Respiratory Rate 18 11/12/2022 4:24 PM CDT Oxygen Saturation 100% 11/12/2022 4:24 PM CDT Inhaled Oxygen Concentration - - Weight 84.9 kg (187 lb 1.6 oz) 07/10/2022 8:43 A M TAX SERVICES PROFESSIONAL Height 175.3 cm (5' 9) 07/10/2022 8:43 AM TAX SERVICES PROFESSIONAL Body Mass Index 27.63 07/10/2022 8:43 AM TAX SERVICES PROFESSIONAL Plan of Treatment Health Maintenance Due Date Last Done Comments ADVANCE CARE PLANNING 1970 ANNUAL REVIEW OF HM ORDERS 1970 CT COLONOGRAPHY 1970 FIT 1970 FLEX SIG 1970 MAMMO SCREENING 1970 sDNA (Cologuard) 1970 YEARLY PREVENTIVE VISIT 1973 COLONOSCOPY 1980 COLORECTAL CANCER SCREENING 1980 HIV SCREENING 1985 HEPATITIS C SCREENING 1988 HEPATITIS B VACCINE (1 of 3 - 19+ 3-dose series) 1989 PNEUMOCOCCAL VACCINE 50+ YEARS (1 of 2 - PCV) 1989 ZOSTER VACCINE (1 of 2) 1989 LIPID 2010 COVID-19 VACCINE (3 - Moderna risk series) 11/08/2020 10/11/2020, 09/09/2020 PAP 02/23/2024 02/22/2021, 02/22/2021 PHQ-2 (once per calendar year) 2024 INFLUENZA VACCINE (#1) 2025 DIABETES SCREENING 07/12/2025 07/12/2022, 0 07/11/2022, 07/11/2022, Additional history exists DTAP/TDAP/TD VACCINE (2 - Td or Tdap) 09/29/2031 09/28/2021, 10/08/2010 HPV VACCINE (No Doses Required) Completed MENINGITIS VACCINE Aged Out No longer eligible based on patient's age to complete this topic Medical Devices Implanted Type Area Auto Emissions Technician Device Identifier Shelf Expiration Date Model / Serial / Lot Sealant Pleural Airleak Progel 4ml [id number] - [id number] Implanted:Qty: 1 on 07/10/2022 by Manuel Fry MD at [facility] Other Left: Lung [employer]-DAVOL 08/27/2023 [id number] / [id number] Procedures Procedure Name Priority Date/Time Associated Diagnosis Comments GLUCOSE BY METER Routine 07/12/2022 5:54 AM TAX SERVICES PROFESSIONAL from Last 3 Months or Most Recently Relevant to Health Maintenance Results * (ABNORMAL) Glucose by meter (07/12/2022 5:54 AM TAX SERVICES PROFESSIONAL) GLUCOSE BY METER POCT 113(H) 70 - 99 mg/dL 07/12/2022 6:02 AM TAX SERVICES PROFESSIONAL LABORATORY POC Blood, Capillary BLOOD SPECIMEN / Unknown 07/12/2022 5:54 AM TAX SERVICES PROFESSIONAL 07/12/2022 6:02 AM TAX SERVICES PROFESSIONAL Manuel Fry MD LAB - BEAKER POCT Donya l Result LABORATORY POC [facility] [address], [address] [place] [address], [facility] [phone] from Last 3 Months or Most Recently Relevant to Health Maintenance Advance Directives For more information, please contact: [phone] * Full Code (Latest Code Status on File) Date Activated Date Inactivated Comments 07/10/2022 1:37 PM 07/15/2022 4:39 PM All basic an d advanced life-sustaining interventions are performed as appropriate Question Answer Comments Code status determined by: Discussion with bi nt/ legal decision maker Care Teams Hydroponics Worker Relationship Specialty Start Date End Date Nathalie Dwoling PA-C [place] [address] [address] PCP - General 05/17/22
--- OUTSIDE RECORDS SUMMARY | 2025-02-09 13:40 | XMS_ITS | CCD ---
Author Name Interface, [id number] lity Address [address] [place] [address] [address] [address] Organization [facility] Address [address] [facility] [address] [place] [address] Care Team Providers Care Animal Nurse Name Role Phone Keivn CORTEZ, Hesham Unavailable Unavailable Ang CORTEZ, Manuel Unavailable Unavailable Allergies and Adverse Reactions Medication/Group Name Reaction Severity Date rofecoxib 01/08/2023 Sulfamide 01/08/2023 clarithromycin 01/08/2023 Penicillins 01/08/2023 aspirin 01/08/2023 Reason for Visit SURVIVORSHIP 60 MIN Functional Status Date Name Score 10/29/2022 ECOG performance status - grade 1 1 09/06/2022 ECOG performance status - grade 1 1 08/06/2022 ECOG performance status - grade 1 1 11/29/2022 ECOG performance status - grade 1 1 01/01/2023 ECOG performance status - grade 1 1 12/12/2022 [facility]G performance status - grade 1 1 Diagnostic Results Date Type Test Units Lower Limit Upper Limit Result Flag Comments Status Ordered By Specimen Source Lab Address 09/17 [facility] [place] other lab See manager package d Medications Date Name Route Dose Frequency Instructions Start Date End Date Status Famotidine Oral PRN a ctive Lorazepam Oral PRN st opped Sertraline Oral daily s topped Montelukast Oral Daily active Budesonide-Formot erica HFA Inhaler 160 mcg-4.5 mcg/actuation BID active Miscellaneous Drug daily Nasacort nasal spray active Cetirizine Oral daily a ctive Ferrous Sulfate Oral daily active Albuterol HFA Inhaler 90 mcg/actuation PRN active Miscellaneous Drug 2 took gummy with calcium and vit d active 11/22/19 23 Pantoprazole (Sodium) Oral Delayed Release oral mg daily 11/22/19 23 inactive Problems Diagnosis Status Date of Diagnosis Resolution Date Generalized anxiety disorder Active Antineoplastic chemotherapy induced anemia Active Dehydration (disorder) Active Anemia Active Dysuria Active Finding related to health insurance issues Active Stopped work (finding) Active Counseling Active Headache (finding) Active Non-small cell lung cancer (disorder) Active Lymphadenopathy (disorder) Active Depressive disorder (disorder) Active Lung mass Active Asthma (disorder) Active Solitary pulmonary nodule Active Abdominal bloating (finding) Active Social History Date Name Value 07/06/2022 Sex Female
[2025-02-09 14:02] LABS: Appearance Urine Clear (Clear)
--- NOTE | 2025-02-09 14:37 | ED_ITS ---
HPI - General Adult General Chief complaint: Flank Pain Stated complaint: had UTI, not getting better w/antibiotics Time Seen by Provider: 02/09/25 14:16 History of Present Illness HPI narrative: left flank pain and ongoing urinary frequency with some warm sensation, initially was burning, was seen the in the clinic and diagnosed with UTI, symptoms not improving with macrobid 54-year-old woman presenting to emergency department with concern of dysuria. S he has also got some left flank area discomfort. Seen in clinic the with negative STI screening with complaint of yellow- greenish discharge. Also was having some itching in the groin. Had tried some steroid cream though also got an antifungal cream during clinic visit. Urinalysis at that time was unconvincing for infection and did not grow out any treatable infection. She did receive a course of Macrobid. Did think her symptoms improved briefly but then have come back. She has also had intermittent feelings of being rather hot or flushed but she acknowledges this might be menopause. Has been quite tired. In addition to the dysuria, small amount of urine out. Clarifying that it is less of a dysuria but can be this occasionally and more of a burning sensation in the suprapubic area as well as frequency/urgency. See is dry ?down there? and has been experiencing dry mouth as well. Stools have been unusual. She has been little bit constipated and then looser. Has not otherwise had a fever. Does have a history of non-small cell lung cancer for what sounds like to be in remission. Did have extensive imaging rescanning for what sounds like surveillance through [facility] earlier this year. She says she is due for reimaging soon; she is to schedule. She is now afraid her wondering whether not many of her symptoms might be related to recurrence of this cancer. Never had radiation treatment. Related Data Home Medications ?Medication ?Instructions ?Recorded ?Confirmed ferrous sulfate 27 mg iron tablet 27 mg PO QDAY 02/01/25 fluticasone propionate 50 2 intranasal DAILY 09/05/22 02/01/25 mcg/actuation nasal spray,suspension folic acid 1 mg tablet 1 mg PO DAILY 10/31/2202/01 mecobalamin (vitamin B12) 1,000 1,000 mcg PO QDAY 10/02/0702/01/25 mcg chewable tablet (B12 Active) Previous Rx's ?Medication ?Instructions ?Recorded ketoconazole 2 % shampoo 1 applic topical 3XW #120 mL 04/10/23 albuterol sulfate 90 mcg/actuation 2 puff inhalation Q 6-8H #8.5 grams 03/24/24 aerosol inhaler (Ventolin HFA) budesonide-formoterol HFA 160 2 puff inhalation BID #1 0.2 grams 03/24/24 mcg-4.5 mcg/actuation aerosol inhaler (Symbicort) montelukast 10 mg tablet 10 mg PO QHS #14 tabs cetirizine 10 mg tablet 10 mg PO DAILY #100 tabs 04/10 nystatin-triamcinolone 100,000 1 applic topical BID #1 5 grams 02/04/25 unit/g-0.1 % topical cream Allergies Allergy/AdvReac Type Severity Reaction Status Date / Time aspirin Allergy Intermediate Verified 02/01/25 07:26 penicillin G Allergy Intermediate rash Verified 02/01/25 07:26 Sulfa (Sulfonamide Allergy Intermediate Difficulty Verified 02/01/25 07:26 Antibiotics) Breathing clarithromycin Allergy Unknown Unknown Verified 02/01/25 07:26 penicillin V Allergy Unknown Hives Verified 02/01/25 07:26 Quinolones Allergy Unknown Verified 02/01/25 07:26 rofecoxib Allergy Unknown Verified 02/01/25 07:26 gluten Allergy Verified 02/01/25 07:26 [place] oil Allergy Unknown Unknown Uncoded 02/01/25 07:26 Milk derivatives Allergy Unknown ubknown Uncoded 02/01/25 07:26 Wheat bran Allergy Unknown Uncoded 02/01/25 07:26 Review of Systems Status of ROS: Reports: 6 or more systems reviewed and unremarkable except as noted in History and below [facility] Medical History Acute UTI ?N39.0 - Urinary tract infection, site not specified (ICD-10) High risk sexual behavior ?Z72.51 - High risk heterosexual behavior (ICD-10) Vaginal discharge ?N89.8 - Other specified noninflammatory disorders of vagina (ICD-10) Sleep disorder ?G47.9 - Sleep disorder, unspecified (ICD-10) Anxiety ?F41.9 - Anxiety disorder, unspecified (ICD-10) Moderate persistent asthma ?J45.40 - Moderate persistent asthma, uncomplicated (ICD-10) Adenocarcinoma, lung ?C34.90 - Malignant neoplasm of unspecified part of unspecified bronchus or lung (ICD-10) History of cervical dysplasia ?Z87.410 - Personal history of cervical dysplasia (ICD-10) Surgical History H/O sinus surgery ?Z98.890 - Other specified postprocedural states (ICD-10) History of lobectomy of lung ?Z90.2 - Acquired absence of lung [part of] (ICD-10) S/P bronchoscopy ?Z98.890 - Other specified postprocedural states (ICD-10) Status post laparoscopy ?Z98.890 - Other specified postprocedural states (ICD-10) Status post biopsy ?Z98.890 - Other specified postprocedural states (ICD-10) Family History Father Alcohol dependence Heart disease Other Asthma Social History Narrative: 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 No alcohol Smoking Status: Never smoker Do you use any of these nicotine containing products: None Second hand tobacco smoke exposure: No How often do you have a drink containing alcohol: never How often do you have six or more drinks on one occasion: Never AUDIT-C Alcohol total score: 0 Non-prescribed substance use: denies use service: No Exam Narrative: Exam Narrative: Pleasant. NAD. Does appear tired. Breathing easily. Lungs appear clear. Heart in regular rate and rhythm. Abdomen is soft. She is moderately tender to palpation in the suprapubic area. I am not really able to reproduce area of discomfort in the left flank/mid left back musculature. No SI joint area pain. No midline back tenderness. Extremities well-perfused without edema. Genito urinary exam was not done Const: Vital Signs, click to edit/add: Vital Signs - 24 hr 02/09/25 13:40 Temperature 97.2 F L Pulse Rate [Right Pulse Oximeter] 77 Respiratory Rate 18 Blood Pressure [Ri ght Upper Arm] 117/79 Pulse Oximetry 96 Documenting provider has reviewed patient's vital signs: yes Course Vital Signs Vital signs: Initial Vital Signs Temperature 97.2 F L 02/09/25 13:40 Temperature Source Temporal Artery Scan 02/09/25 13:40 Pulse Rate 77 02/09/25 13:40 Respiratory Rate 18 02/09/25 13:40 Blood Pressure 117/79 02/09/25 13:40 Blood Pressure Mean 91 02/09/25 13:40 Blood Pressure Position Sitting 02/09/25 13:40 Pulse Oximetry 96 02/09/25 13:40 Vital Signs Temperature 97.2 F L 02/09/25 13:40 Pulse Rate 77 02/09/25 13:40 Respiratory Rate 18 02/09/25 13:40 Blood Pressure 117/79 02/09/25 13:40 Pulse Oximetry 96 02/09/25 13:40 Temperature 97.2 F L 02/09/25 13:40 Pulse Rate 77 02/09/25 13:40 Respiratory Rate 18 02/09/25 13:40 Blood Pressure 117/79 02/09/25 13:40 Pulse Oximetry 96 02/09/25 13:40 Medical Decision Making MDM Narrative Medical decision making narrative: Urinalysis is been resulted and looks similar to earlier. Does not look to be infected. Possibly inflammatory. Given her concerns we can do some basic lab work. Can verify reassuring kidney function/creatinine. Flank discomfort is mild and does not appear to be musculoskeletal. No rash to suggest zoster or other. Wonder if a number of these symptoms might be related to menopause. Might be experiencing overactive bladder for other reason than infection certainly. Did spend some time discussing concerns. Perhaps phenazopyridine might be temporarily helpful. She would appreciate seeing [facility] again and I would support this. See patient discharge plan for further discussion Continue stay well-hydrated. I know that this might cause some difficulty at work; maybe you can modify it a little bit. Hopefully the phenazopyridine I am prescribing from [facility] will be helpful (you can buy this [id number] if needed in half the strength) Please schedule your follow-up scan. I do think it would be a good idea to follow up in [facility] as discussed for further evaluation of a number of these symptoms. Medical Records Medical records reviewed: Yes I reviewed the patient's medical records Lab Data Lab results reviewed: Yes I reviewed the patient's lab results Labs: Lab Results 02/09/25 02/09/25 02/09/25 Range/Units 13:55 15:07 15:22 WBC 5.96 (4.50-11.00) K/uL RBC 4.10 (4.00-5.20) m/uL Hgb 12.6 (12.0-16.0) gm/dL Hct 37.8 (33.0-51.0) % MCV 92 (80-100) fL MCH 31 (26-34) pg MCHC 33 (32-36) gm/dL RDW Coeff of Barber 11.6 (11.5-15.5) % Plt Count 280 (140-440) K/uL Neut % (Auto) 60.2 (42.0-72.0) % Lymph % (Auto) 29.7 (20-44) % Tift % (Auto) 7.2 (0.0-11.0) % Eos % (Auto) 2.2 (0.0-7.0) % Baso % (Auto) 0.5 (0.0-3.0) % Neut # (Auto) 3.59 (1.7-7.0) K/uL Lymph # (Auto) 1.77 (0.90-2.90) K/uL Tift # (Auto) 0.40 (0.00-0.90) K/UL Eos # (Auto) 0.13 (0.00-0.50) K/uL Baso # (Auto) 0.03 (0.00-0.30) K/uL Abs Immat Gran (auto) 0.01 (0.00-0.30) K/uL Imm/Tot Granulo (auto) 0.2 % Sodium 138 (135-149) mmol/L Potassium 3.7 (3.6-5.1) mmol/L Chloride 102 (96-114) mmol/L Carbon Dioxide 30 (20-32) mmol/L Anion Gap 6 L (7-15) mEq/L BUN 15 (7-30) mg/dL Creatinine 0.8 (0.5-1.5) mg/dL Estimated Creat Clear 84.01 Estimated GFR 88 ml/min Glucose 91 (60-115) mg/dL Calcium 9.7 (8.4-10.6) mg/dL Urine Color Yellow (Yellow) Urine Appearance Clear (Clear) Urine pH 6.5 (5.0-8.5) Ur Specific [place] 1.010 (1.000-1.030) Urine Protein Negative (Negative) Urine Glucose (UA) Negative (Negative) Urine Ketones Negative (Negative) Urine Blood Trace-intact A (Negative) Urine Nitrite Negative (Negative) Urine Bilirubin Negative (Negative) Urine Urobilinogen 0.2 (0.2-1.0) Ur Leukocyte Esterase 1+ A (Negative) Urine RBC 0-2 (0-2) Urine WBC 2-5 (0-5) Ur Squamous Epith Cells Few (None-Few) Urine Bacteria Few A (None) Lab Acknowledgement Test Added Discharge Plan Discharge Clinical Impression: Cystitis, Vaginal discharge, Malaise and fatigue Patient Disposition: Home, Self-Care Condition: Stable Additional Instructions: Continue stay well-hydrated. I know that this might cause some difficulty at work; maybe you can modify it a little bit. Hopefully the phenazopyridine I am prescribing from [facility] will be helpful (you can buy this [id number] if needed in half the strength) Please schedule your follow-up scan. I do think it would be a good idea to follow up in [facility] as discussed for further evaluation of a number of these symptoms. Prescriptions: No Action fluticasone propionate 50 mcg/actuation spray,suspension 2 intranasal DAILY ketoconazole 2 % shampoo 1 applic topical 3XW Qty: 120 2RF ferrous sulfate 27 mg iron tablet 27 mg PO QDAY folic acid 1 mg tablet 1 mg PO DAILY mecobalamin (vitamin B12) [B12 Active] 1,000 mcg tablet,chewable 1,000 mcg PO QDAY albuterol sulfate [Ventolin HFA] 90 mcg/actuation HFA aerosol inhaler 2 puff inhalation Q6-8H Qty: 8.5 11RF budesonide-formoterol [Symbicort] 160-4.5 mcg/actuation HFA aerosol inhaler 2 puff inhalation BID Qty: 10.2 11RF montelukast 10 mg tablet 10 mg PO QHS Qty: 14 0RF cetirizine 10 mg tablet 10 mg PO DAILY Qty: 100 0RF nystatin-triamcinolone 100,000-0.1 unit/g-% cream 1 applic topical BID Qty: 15 0RF Rx Instructions: apply topically twice daily for 5 days Follow Up/Referrals: Nathalie Dowling PA-C [Primary Care Provider, Family Practice] Stand Alone Forms: [employer] Info Instructions
--- OUTSIDE RECORDS SUMMARY | 2025-02-09 15:05 | XMS_ITS ---
Author Name Interface, [id number] lity Address [address] [place] [address] Oncology Address [address] [place] [address] Allergies and Adverse Reactions Plan Reason for Visit Encounters Diagnostic Results Medications Problems Vital Signs Notes Section
--- OUTSIDE RECORDS SUMMARY | 2025-02-09 15:05 | XMS_ITS ---
Author Name Interface, [id number] lity Address [address] [place] [address] Oncology Address [address] [place] [address] Allergies and Adverse Reactions Plan Reason for Visit Encounters Diagnostic Results Medications Problems Vital Signs
--- OUTSIDE RECORDS SUMMARY | 2025-02-09 15:05 | XMS_ITS ---
Author Name Interface, [id number] lity Address [address] [place] [address] Oncology Address [address] [place] [address] Allergies and Adverse Reactions Plan Reason for Visit Encounters Diagnostic Results Medications Problems Vital Signs Notes Section
--- OUTSIDE RECORDS SUMMARY | 2025-02-09 15:06 | XMS_ITS ---
Author Name Interface, [id number] lity Address [address] [place] [address] Oncology Address [address] [place] [address] Allergies and Adverse Reactions Plan Reason for Visit Encounters Diagnostic Results Medications Problems Vital Signs Notes Section
--- OUTSIDE RECORDS SUMMARY | 2025-02-09 15:06 | XMS_ITS ---
Author Name Interface, [id number] lity Address [address] [facility] [address] [place] [address] [facility] Address [address] [facility] [address] [place] [address] Allergies and Adverse Reactions Medication/Group Name Reaction Severity Date rofecoxib 01/08/2023 Sulfamide 01/08/2023 clarithromycin 01/08/2023 aspirin 01/08/2023 Penicillins 01/08/2023 Plan Date Type Value 03/05/2023 APPOINTMENT SURVIVORSHIP 60 MIN 01/08/2023 APPOINTMENT OV 30 MIN 01/08/2023 APPOINTMENT LAB 10 MIN 01/01/2023 APPOINTMENT TREATMENT 2 HR 01/01/2023 APPOINTMENT OV 30 MIN 01/01/2023 APPOINTMENT LAB 15 MIN 12/27/2022 APPOINTMENT OV 30 MIN 12/27/2022 APPOINTMENT LAB 10 MIN 12/27/2022 APPOINTMENT TREATMENT 2 HR 12/26/2022 APPOINTMENT LAB 10 MIN 12/26/2022 APPOINTMENT TREATMENT 2 HR 12/26/2022 APPOINTMENT OV 30 MIN 12/25/2022 APPOINTMENT TREATMENT 2 HR 12/25/2022 APPOINTMENT TREATMENT 2 HR 12/24/2022 APPOINTMENT LAB 10 MIN 12/24/2022 APPOINTMENT OV 30 MIN 12/12/2022 APPOINTMENT LAB 10 MIN 12/12/2022 APPOINTMENT OV 30 MIN 12/12/2022 LABORDER Ferritin panel 12/12/2022 LABORDER Reticulocyte cou nt panel 12/12/2022 LABORDER Iron profile 12/12/2022 LABORDER Occult blood, fe seth, immunoassay panel 12/12/2022 LABORDER CBC w/ auto diff 12/13/2022 LABORDER Urinalysis with Reflex Panel 12/24/2022 LABORDER iSTAT creatinine panel 12/24/2022 LABORDER CMP 12/24/2022 LABORDER CBC w/ auto diff 01/01/2023 LABORDER iSTAT creatinine panel 01/01/2023 LABORDER CBC w/ auto diff 01/08/2023 LABORDER CBC w/ auto diff 01/08/2023 LABORDER CMP 03/05/[address] chest/abdomen /pelvis w/ IV contrast 03/08/2023 LABORDER CMP 03/08/2023 LABORDER CBC w/ auto diff Reason for Visit SURVIVORSHIP 60 MIN Encounters Date Name 12/12/2022 Anemia 12/12/2022 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 Counseling 12/12/2022 Depressive disorder (disorder) 12/12/2022 Dysuria 12/12/2022 Generalized anxiety disorder 12/12/2022 Headache (finding) 12/12/2022 Non-small cell lung cancer (disorder) 12/12/2022 Stopped work (findin g) Diagnostic Results Date Type Test Units Lower Limit Upper Limit Result Flag Comments Status Ordered By Specimen Source Lab Address 12/12 Retic ulocy te count panel Retic ulocy te, absol standing rock M/uL 0.02 0.08 0.01 Low FINAL [facility] [place], [address] [address] [place] [phone] 0 Phone: () - 12/12 Retic ulocy te count panel Retic ulocy te count % 0.4 1.6 0.30 Low FINAL [facility] [place], [address] [place] [phone] 0 Phone: () - 12/12 Retic ulocy te count panel Immat ure retic ulocy te fract ion, % % 0.0 16.5 0.00 FINAL [facility] [place], [address] [place] [phone] 0 Phone: () - 12/12 Retic ulocy te count panel Retic ulocy te cellu lar hemog lobin pg 28.0 37.0 38.4 High FINAL [facility] - [place], [address] [facility] [address] [place] [phone] 0 Phone: () - 12/12 Saad tin panel Saad tin NG/ML 10.0 130.0 314.40 High FINAL Hesham Kevin [facility] - [place], [address] [place] [phone] 0 Phone: () - 12/12 CBC w/ auto diff WBC K/uL 3.0 8.9 3.1 FINAL Hesham Brown Bryanchan [facility] - [place], [address] [place] [id number] 0 Phone: () - 12/12 CBC w/ auto diff HGB g/dL 11.3 15.2 9.7 Low FINAL Hesham Brown [facility] - [place], [address] [place] [phone] 0 Phone: () - 12/12 CBC w/ auto diff PLT K/uL 113.0 364.0 141 FINAL Hesham Brown [facility] - [place], [address] [place] [id number] 0 Phone: () - 12/12 CBC w/ auto diff Shirlene # (ANC) K/uL 1.6 6.6 1.1 Low FINAL Hesham Brown [facility] - [place], [address] [place] [phone] 0 Phone: () - 12/12 CBC w/ auto diff Shirlene % % 43.0 74.0 35.3 Low FINAL Hesham Brown [facility] - [place], [address] [place] [phone] 0 Phone: () - 12/12 CBC w/ auto diff IG % % 0.0 0.5 0.3 FINAL Hesham Brown [facility] - [place], [address] [place] [phone] 0 Phone: () - 12/12 CBC w/ auto diff IG # K/uL 0.0 0.03 0.01 FINAL Hesham Brown [facility] - [place], [address] [place] [id number] 0 Phone: () - 12/12 CBC w/ auto diff LY % % 14.0 41.0 53.6 High FINAL [facility] - [place], [address] [place] [phone] 0 Phone: () - 12/12 CBC w/ auto diff MO % % 6.0 15.0 7.5 FINAL [facility] - [place], [address] [place] [phone] 0 Phone: () - 12/12 CBC w/ auto diff EO % % 0.0 7.0 2.6 FINAL [facility] - [place], [address] [place] [id number] 0 Phone: () - 12/12 CBC w/ auto diff BA % % 0.0 2.0 0.7 FINAL [facility]esham Kevin [facility] - [place], [address] [place] [id number] 0 Phone: () - 12/12 CBC w/ auto diff LY # K/uL 0.4 3.6 1.6 FINAL [facility]esham Brown [facility] - [place], [address] [place] [phone] 0 Phone: () - 12/12 CBC w/ auto diff MO # K/uL 0.2 1.3 0.2 FINAL [facility] - [place], [address] [place] [phone] 0 Phone: () - 12/12 CBC w/ auto diff EO # K/uL 0.0 0.6 0.1 FINAL [facility] - [place], [address] [place] [phone] 0 Phone: () - 12/12 CBC w/ auto diff BA # K/uL 0.0 0.2 0.0 FINAL [facility] - [place], [address] [place] [id number] 0 Phone: () - 12/12 CBC w/ auto diff NRBC % #/100W BC 0.0 0.2 0.0 FINAL Hesham Rich a [facility] - [place], [address] [place] [phone] 0 Phone: () - 12/12 CBC w/ auto diff RBC M/uL 3.9 5.1 2.92 Low FINAL Hesham Rich a [facility] - [place], [address] [place] [phone] 0 Phone: () - 12/12 CBC w/ auto diff HCT % 35.0 48.0 28.0 Low FINAL Hesham Rich a [facility] - [place], [address] [place] [phone] 0 Phone: () - 12/12 CBC w/ auto diff MCV fL 80.0 104.0 95.9 FINAL Hesham aguilar [facility] - [place], [address] [place] [phone] 0 Phone: () - 12/12 CBC w/ auto diff MCH pg 26.0 35.0 33.2 FINAL Hesham Rich a [facility] - [place], [address] [place] [phone] 0 Phone: () - 12/12 CBC w/ auto diff MCHC g/dL 30.0 35.0 34.6 FINAL Hesham aguilar [facility] - [place], [address] [place] [id number] 0 Phone: () - 12/12 CBC w/ auto diff MPV fL 9.5 13.4 9.4 Low FINAL [facility] - [place], [address] [place] [phone] 0 Phone: () - 12/12 CBC w/ auto diff RDW % 11.4 16.1 12.90 FINAL [facility]esham ag[facility] - [place], [address] [place] [phone] 0 Phone: () - 12/12 Iron profi le TIBC ug/dL 250.0 425.0 267 FINAL Hesham aguilar [facility], [address] [place] [phone] 0 Phone: () - 12/12 Iron profi le Iron ug/dL 50.0 175.0 194 High FINAL Hesham aguilar [facility], [address] [place] [phone] 0 Phone: () - 12/12 Iron profi le Unbou nd iron capac ity ug/dL 75.0 410.0 73 Low FINAL Hesham aguilar [facility], [address] [place] [phone] 0 Phone: () - 12/12 Iron profi le Iron, % satur ation % 20.0 55.0 73 High FINAL Hesham aguilar [facility], [address] [place] [phone] 0 Phone: () - 12/13 Color (ua) Yellow FINAL [facility]ing [facility] - [place], [address] [place] [phone] 0 Phone: () - 12/13 Appea kasia (ua) Clear FINAL [facility] - [place], [address] [place] [phone] 0 Phone: () - 12/13 Gluco se (ua), qual Negativ e FINAL [facility] - [place], [address] [place] [phone] 0 Phone: () - 12/13 Bilir ubin (ua) Negativ e FINAL [facility] - [place], [address] [place] [phone] 0 Phone: () - 12/13 Urina lysis , aceto ne or keton e luis alberto s measu remen t Negativ e FINAL [facility] - [place], [address] [place] [id number] 0 Phone: () - 12/13 Speci fic gravi ty (ua) 1.005 1.02 1.020 FINAL [facility] - [place], [address] [place] [id number] 0 Phone: () - 12/13 Blood (ua) Negativ e FINAL [facility] - [place], [address] [place] [phone] 0 Phone: () - 12/13 pH (ua) 5.0 8.0 6.0 FINAL [facility] - [place], [address] [place] [phone] 0 Phone: () - 12/13 Prote in (ua) Negativ e FINAL [facility] - [place], [address] [place] [phone] 0 Phone: () - 12/13 Urobi linog en (ua) 0.2 1.0 0.2 FINAL [facility] - [place], [address] [place] [id number] 0 Phone: () - 12/13 Nitri te (ua) Negativ e FINAL [facility] - [place], [address] [place] [phone] 0 Phone: () - 12/13 Leuko cyte hollie ase (ua), qual Negativ e FINAL [facility] - [place], [address] [place] [phone] 0 Phone: () - 12/13 UA comme nt 1 No Microsc opic Ordered FINAL [facility] - [place], [address] [place] [phone] 0 Phone: () - 12/20 Misc other lab See hide buyer d 12/24 CBC w/ auto diff WBC K/uL 3.0 8.9 3.9 FINAL [facility] [place], [address] [place] [phone] 0 Phone: () - 12/24 CBC w/ auto diff HGB g/dL 11.3 15.2 9.0 Low FINAL [facility] - [place], [address] [place] [phone] 0 Phone: () - 12/24 CBC w/ auto diff PLT K/uL 113.0 364.0 171 FINAL [facility] - [place], [address] [place] [phone] 0 Phone: () - 12/24 CBC w/ auto diff Shirlene # (ANC) K/uL 1.6 6.6 1.5 Low FINAL [facility] - [place], [address] [place] [phone] 0 Phone: () - 12/24 CBC w/ auto diff Shirlene % % 43.0 74.0 38.0 Low FINAL [facility] - [place], [address] [place] [phone] 0 Phone: () - 12/24 CBC w/ auto diff IG % % 0.0 0.5 0.5 FINAL [facility] - [place], [address] [place] [id number] 0 Phone: () - 12/24 CBC w/ auto diff IG # K/uL 0.0 0.03 0.02 FINAL [facility] - [place], [address] [place] [id number] 0 Phone: () - 12/24 CBC w/ auto diff LY % % 14.0 41.0 44.6 High FINAL Hesham aguilar [facility] - [place], [address] [place] [id number] 0 Phone: () - 12/24 CBC w/ auto diff MO % % 6.0 15.0 13.8 FINAL Hesham aguilar [facility] - [place], [address] [place] [id number] 0 Phone: () - 12/24 CBC w/ auto diff EO % % 0.0 7.0 2.8 FINAL Hesham agu[facility] - [place], [address] [place] [phone] 0 Phone: () - 12/24 CBC w/ auto diff BA % % 0.0 2.0 0.3 FINAL Hesham aguilar [facility] - [place], [address] [place] [phone] 0 Phone: () - 12/24 CBC w/ auto diff LY # K/uL 0.4 3.6 1.8 FINAL Hesham aguilar [facility] - [place], [address] [place] [phone] 0 Phone: () - 12/24 CBC w/ auto diff MO # K/uL 0.2 1.3 0.5 FINAL Hesham ag[facility] - [place], [address] [place] [id number] 0 Phone: () - 12/24 CBC w/ auto diff EO # K/uL 0.0 0.6 0.1 FINAL [facility]ham [facility] - [place], [address] [place] [phone] 0 Phone: () - 12/24 CBC w/ auto diff BA # K/uL 0.0 0.2 0.0 FINAL [facility]esham agu[facility] - [place], [address] [place] [phone] 0 Phone: () - 12/24 CBC w/ auto diff NRBC % #/100W BC 0.0 0.2 0.0 FINAL [facility] - [place], [address] [place] [id number] 0 Phone: () - 12/24 CBC w/ auto diff RBC M/uL 3.9 5.1 2.70 Low FINAL [facility] - [place], [address] [place] [phone] 0 Phone: () - 12/24 CBC w/ auto diff HCT % 35.0 48.0 26.0 Low FINAL Hesham agu[facility] - [place], [address] [place] [id number] 0 Phone: () - 12/24 CBC w/ auto diff MCV fL 80.0 104.0 96.3 FINAL [facility]ham Brown [facility] - [place], [address] [place] [phone] 0 Phone: () - 12/24 CBC w/ auto diff MCH pg 26.0 35.0 33.3 FINAL Hesham Brown [facility] - [place], [address] [place] [phone] 0 Phone: () - 12/24 CBC w/ auto diff MCHC g/dL 30.0 35.0 34.6 FINAL Hesham Brown [facility] - [place], [address] [place] [phone] 0 Phone: () - 12/24 CBC w/ auto diff MPV fL 9.5 13.4 8.5 Low FINAL Hesham Brown [facility] - [place], [address] [place] [id number] 0 Phone: () - 12/24 CBC w/ auto diff RDW % 11.4 16.1 13.60 FINAL Hesham ag[facility]ilar [facility], [address] [facility] [phone] 0 Phone: () - 12/24 CMP Album in g/dL 3.2 5.2 4.4 FINAL Hesham Rich [facility], [address] [facility] [id number] 0 Phone: () - 12/24 CMP Alkal ine phosp hatas e U/L 46.0 116.0 75 [facility] [address] [facility] [id number] 0 Phone: () - 12/24 CMP ALT/S GPT U/L 7.0 40.0 20 [facility] [address] [facility] [phone] 0 Phone: () - 12/24 CMP AST/S GOT U/L 13.0 40.0 24 [facility] [address] [facility] [id number] 0 Phone: () - 12/24 CMP BUN mg/dL 9.0 23.0 12.0 FINAL [place] [address] [address] [facility] [address] [facility] [phone] 0 Phone: () - 12/24 CMP Calci um mg/dL 8.7 10.4 9.4 [facility] [address] [facility] [address] [phone] 0 Phone: () - 12/24 CMP Chlor rhonda mmol/L 96.0 114.0 109 [facility], [address] [facility] [address] [address] [phone] 0 Phone: () - 12/24 CMP CO2 mmol/L 20.0 31.0 27 The expected total allowable error for CO2 is 5.6%. We have seen up to 10% differenc e in values if reported at the end of the 96 hour stability window. Please consider the clinical significa nce of a 2.0-2.5 mmol/L lower reported CO2 value if reported at the end of the 96 hour stability window. FINAL Hesham Rich [facility], [facility] [address] [facility] [address] [place] [phone] 0 Phone: () - 12/24 CMP Creat inine mg/dL 0.5 1.2 0.86 FINAL Hesham aguilar [facility] [place] [address] [facility] [address] [phone] 0 Phone: () - 12/24 CMP GFR estim ate ml/min /1.73m ^2 80.9 GFR is calculate d using the CKD-EPI equation. FINAL Hesham Rich [place] [address] [id number] 0 Phone: () - 12/24 CMP Gluco se mg/dL 73.0 126.0 99 FINAL Hesham Rich [place] [address] [address] [facility] [address] [place] [phone] 0 Phone: () - 12/24 CMP Potas sium mmol/L 3.5 5.1 3.8 FINAL Hesham Rich [place] [address] [address] [facility] [address] [place] [phone] 0 Phone: () - 12/24 CMP Sodiu m mmol/L 136.0 145.0 144 FINAL Hesham Rich [place] [address] [address] [facility] [address] [phone] 0 Phone: () - 12/24 CMP Bilir ubin, total mg/dL 0.3 1.2 0.3 FINAL Hesham Rich [place] [address] [address] [facility] [address] [phone] 0 Phone: () - 12/24 CMP Total prote in g/dL 5.7 8.2 7.1 FINAL [place] [address] [address] [facility] [address] [phone] 0 Phone: () - 12/24 iSTAT creat inine panel Creat inine , iSTAT mg/dl 0.6 1.3 0.9 FINAL Hesham Rich [facility], [address] [place] [phone] 0 Phone: () - 12/24 Justino izaguirre inbrett panel GFR estim ate ml/min /1.73m ^2 76.6 GFR is calculate d using the CKD-EPI equation. FINAL [facility] [place], [address] [place] [phone] 0 Phone: () - 01/01 CBC w/ auto diff WBC K/uL 3.0 8.9 5.3 FINAL Taylor [facility] - [place], [address] [place] [id number] 0 Phone: () - 01/01 CBC w/ auto diff HGB g/dL 11.3 15.2 10.6 Low FINAL [facility] [place], [address] [place] [phone] 0 Phone: () - 01/01 CBC w/ auto diff PLT K/uL 113.0 364.0 326 FINAL [facility] [place], [address] [place] [phone] 0 Phone: () - 01/01 CBC w/ auto diff Shirlene # (ANC) K/uL 1.6 6.6 3.7 FINAL [facility] [place], [address] [place] [phone] 0 Phone: () - 01/01 CBC w/ auto diff Shirlene % % 43.0 74.0 69.3 FINAL [facility] - [place], [address] [place] [id number] 0 Phone: () - 01/01 CBC w/ auto diff IG % % 0.0 0.5 0.4 FINAL [facility] - [place], [address] [place] [id number] 0 Phone: () - 01/01 CBC w/ auto diff IG # K/uL 0.0 0.03 0.02 FINAL [facility] - [place], [address] [place] [id number] 0 Phone: () - 01/01 CBC w/ auto diff LY % % 14.0 41.0 21.9 FINAL [facility] - [place], [address] [place] [id number] 0 Phone: () - 01/01 CBC w/ auto diff MO % % 6.0 15.0 8.2 FINAL [facility] - [place], [address] [place] [phone] 0 Phone: () - 01/01 CBC w/ auto diff EO % % 0.0 7.0 0.0 FINAL [facility] [place], [address] [place] [phone] 0 Phone: () - 01/01 CBC w/ auto diff BA % % 0.0 2.0 0.2 FINAL [facility] [place], [address] [place] [id number] 0 Phone: () - 01/01 CBC w/ auto diff LY # K/uL 0.4 3.6 1.2 FINAL [facility] [place], [address] [place] [phone] 0 Phone: () - 01/01 CBC w/ auto diff MO # K/uL 0.2 1.3 0.4 FINAL [facility] [place], [address] [place] [id number] 0 Phone: () - 01/01 CBC w/ auto diff EO # K/uL 0.0 0.6 0.0 FINAL [facility] [place], [address] [place] [id number] 0 Phone: () - 01/01 CBC w/ auto diff BA # K/uL 0.0 0.2 0.0 FINAL Taylor Rich a [facility] - [place], [address] [place] [id number] 0 Phone: () - 01/01 CBC w/ auto diff NRBC % #/100W BC 0.0 0.2 0.0 FINAL [facility] [place], [address] [place] [phone] 0 Phone: () - 01/01 CBC w/ auto diff RBC M/uL 3.9 5.1 3.07 Low FINAL [facility] - [place], [address] [place] [id number] 0 Phone: () - 01/01 CBC w/ auto diff HCT % 35.0 48.0 30.1 Low FINAL Taylor Rich a [facility] - [place], [address] [place] [phone] 0 Phone: () - 01/01 CBC w/ auto diff MCV fL 80.0 104.0 98.0 FINAL Taylor aguilar [facility] - [place], [address] [place] [phone] 0 Phone: () - 01/01 CBC w/ auto diff MCH pg 26.0 35.0 34.5 FINAL Taylor aguilar [facility] - [place], [address] [place] [id number] 0 Phone: () - 01/01 CBC w/ auto diff MCHC g/dL 30.0 35.0 35.2 High FINAL Taylor [facility] [place], [address] [place] [phone] 0 Phone: () - 01/01 CBC w/ auto diff MPV fL 9.5 13.4 8.9 Low FINAL [facility] [place], [address] [place] [phone] 0 Phone: () - 01/01 CBC w/ auto diff RDW % 11.4 16.1 15.50 FINAL Taylor aguilar [facility] - [place], [address] [facility] [address] [place] [phone] 0 Phone: () - 01/01 iSTAT creat inine panel Creat inine , iSTAT mg/dl 0.6 1.3 0.8 FINAL Taylor aguilar [facility] - [place], [address] [facility] [address] [place] [phone] 0 Phone: () - 01/01 iSTAT creat inine panel GFR estim ate ml/min /1.73m ^2 88.3 GFR is calculate d using the CKD-EPI equation. FINAL Taylor aguilar [facility] [place], [address] [facility] [address] [place] [phone] 0 Phone: () - 01/05 [facility] other lab See hide buyer d 01/08 CMP Album in g/dL 3.2 5.2 4.4 [facility], [address] [place] [id number] 0 Phone: () - 01/08 CMP Alkal ine phosp hatas e U/L 46.0 116.0 72 [facility], [address] [place] [address] [phone] 0 Phone: () - 01/08 CMP ALT/S GPT U/L 7.0 40.0 27 FINAL Hesham Adams a [facility], [address] [place] [phone] 0 Phone: () - 01/08 CMP AST/S GOT U/L 13.0 40.0 28 [facility], [address] [facility] [id number] 0 Phone: () - 01/08 CMP BUN mg/dL 9.0 23.0 13.0 [facility], [address] [facility] [address] [facility] [phone] 0 Phone: () - 01/08 CMP Calci um mg/dL 8.7 10.4 9.6 FINAL Hesham Rich [facility], [facility] [address] [id number] 0 Phone: () - 01/08 CMP Chlor rhonda mmol/L 96.0 114.0 108 FINAL [place] [address] [id number] 0 Phone: () - 01/08 CMP CO2 mmol/L 20.0 31.0 27 The expected total allowable error for CO2 is 5.6%. We have seen up to 10% differenc e in values if reported at the end of the 96 hour stability window. Please consider the clinical significa nce of a 2.0-2.5 mmol/L lower reported CO2 value if reported at the end of the 96 hour stability window. [facility], [facility] N [address] [phone] 0 Phone: () - 01/08 CMP Creat inine mg/dL 0.5 1.2 0.79 FINAL [place] [address] [phone] 0 Phone: () - 01/08 CMP GFR estim ate ml/min /1.73m ^2 89.6 GFR is calculate d using the CKD-EPI equation. FINAL Hesham aguilar [facility], [facility] N [address] [phone] 0 Phone: () - 01/08 CMP Gluco se mg/dL 73.0 126.0 84 FINAL [place] [address] [phone] 0 Phone: () - 01/08 CMP Potas sium mmol/L 3.5 5.1 4.1 FINAL Hesham aguilar [facility], [address] [phone] 0 Phone: () - 01/08 CMP Sodiu m mmol/L 136.0 145.0 143 FINAL Hesham aguilar [facility] [place], [address] [place] [phone] 0 Phone: () - 01/08 CMP Bilir ubin, total mg/dL 0.3 1.2 0.5 FINAL Hesham aguilar [facility] [place], [address] [place] [phone] 0 Phone: () - 01/08 CMP Total prote in g/dL 5.7 8.2 7.0 FINAL Hesham aguilar [facility] [place], [address] [place] [phone] 0 Phone: () - 01/08 CBC w/ auto diff WBC K/uL 3.0 8.9 3.6 FINAL [facility] [place], [address] [facility] [address] [place] [phone] 0 Phone: () - 01/08 CBC w/ auto diff HGB g/dL 11.3 15.2 9.2 Low FINAL [facility] [place], [address] [facility] [address] [place] [phone] 0 Phone: () - 01/08 CBC w/ auto diff PLT K/uL 113.0 364.0 197 FINAL [facility] [place], [address] [facility] [address] [place] [phone] 0 Phone: () - 01/08 CBC w/ auto diff Shirlene # (ANC) K/uL 1.6 6.6 1.6 FINAL [facility] [place], [address] [place] [phone] 0 Phone: () - 01/08 CBC w/ auto diff Shirlene % % 43.0 74.0 43.7 FINAL [facility] [place], [address] [facility] [address] [place] [phone] 0 Phone: () - 01/08 CBC w/ auto diff IG % % 0.0 0.5 0.3 FINAL [facility] [place], [address] [place] [phone] 0 Phone: () - 01/08 CBC w/ auto diff IG # K/uL 0.0 0.03 0.01 FINAL [facility] [place], [address] [place] [phone] 0 Phone: () - 01/08 CBC w/ auto diff LY % % 14.0 41.0 44.3 High FINAL [facility] [place], [address] [place] [phone] 0 Phone: () - 01/08 CBC w/ auto diff MO % % 6.0 15.0 9.2 FINAL [facility] [place], [address] [place] [phone] 0 Phone: () - 01/08 CBC w/ auto diff EO % % 0.0 7.0 2.2 FINAL [facility] [place], [address] [place] [phone] 0 Phone: () - 01/08 CBC w/ auto diff BA % % 0.0 2.0 0.3 FINAL [facility] [place], [address] [place] [phone] 0 Phone: () - 01/08 CBC w/ auto diff LY # K/uL 0.4 3.6 1.6 FINAL [facility] [place], [address] [place] [phone] 0 Phone: () - 01/08 CBC w/ auto diff MO # K/uL 0.2 1.3 0.3 FINAL [facility] [place], [address] [place] [phone] 0 Phone: () - 01/08 CBC w/ auto diff EO # K/uL 0.0 0.6 0.1 FINAL [facility] [place], [address] [place] [phone] 0 Phone: () - 01/08 CBC w/ auto diff BA # K/uL 0.0 0.2 0.0 FINAL [facility] [place], [address] [place] [phone] 0 Phone: () - 01/08 CBC w/ auto diff NRBC % #/100W BC 0.0 0.2 0.0 FINAL [facility] [place], [address] [place] [phone] 0 Phone: () - 01/08 CBC w/ auto diff RBC M/uL 3.9 5.1 2.71 Low FINAL [facility] [place], [address] [place] [phone] 0 Phone: () - 01/08 CBC w/ auto diff HCT % 35.0 48.0 26.6 Low FINAL [facility] [place], [address] [place] [phone] 0 Phone: () - 01/08 CBC w/ auto diff MCV fL 80.0 104.0 98.2 FINAL [facility] [place], [address] [place] [phone] 0 Phone: () - 01/08 CBC w/ auto diff MCH pg 26.0 35.0 33.9 FINAL [facility] [place], [address] [place] [phone] 0 Phone: () - 01/08 CBC w/ auto diff MCHC g/dL 30.0 35.0 34.6 FINAL [facility] [place], [address] [place] [phone] 0 Phone: () - 01/08 CBC w/ auto diff MPV fL 9.5 13.4 8.8 Low FINAL [facility] [place], [address] [place] [phone] 0 Phone: () - 01/08 CBC w/ auto diff RDW % 11.4 16.1 15.00 FINAL [facility] [place], [address] [place] [phone] 0 Phone: () - 05/27 [facility] 05/27 [facility] other lab [facility] 12/01 [facility] [place] [facility] 12/22 [facility] [place] [facility] 05/22 [facility] [place] [facility] 09/17 [facility] [place] [facility] Medications Date Name Route Dose Frequency Instructions Start Date End Date Status Montelukast Oral Daily active Budesonide-Fo rmoterol HFA Inhaler 160 mcg-4.5 mcg/actuation BID active Cetirizine Oral daily active Ferrous Sulfate Oral daily active Miscellaneous Drug daily Nasacort nasal spray active Miscellaneous Drug 2 took gummy with calcium and vit d active Famotidine Oral PRN active Albuterol HFA Inhaler 90 mcg/actuation PRN active 08/15 cetirizine hydrochloride 10 MG Oral Tablet 2023 active 01/08 folic acid 1 MG Oral Tablet orally 1.0 tablet daily 2022 active 01/01 diphenhydrami ne hydrochloride 0.5 MG/ML Injectable Solution intravenously 50.0 mg Re-initiate treatment only upon physician approval. 2022 active 01/01 1 ML epinephrine 1 MG/ML Injection intramuscularl y 0.3 mg once Re-initiate treatment only upon physician approval. 2022 active 01/01 Sodium Chloride IV 0.9 % intravenously 1000.0 mL once 01/01 on hold 01/01 hydrocortison e 100 MG Injection intravenously 100.0 mg Re-initiate treatment only upon physician approval. 2022 active 01/01 methylprednis olone 2000 MG Injection intravenously 125.0 mg Re-initiate treatment only upon physician approval. 2022 active 12/12 cetirizine hydrochloride 10 MG Oral Capsule orally 1.0 capsule daily 2022 active 12/07 Magic Mouthwash (Maalox-Visc Lidocaine-Valdez adryl Elix) orally 5.0 mL before meals and at bedtime Shake well before use.EQ parts: Maalox, Visc Lidocaine, and Benadryl elixir. 2022 active 12/04 1 ML epinephrine 1 MG/ML Injection intramuscularl y 0.3 mg once Re-initiate treatment only upon physician approval. 2022 active 12/04 famotidine 10 MG/ML Injectable Solution intravenously 20.0 mg Re-initiate treatment only upon physician approval. 2022 active 12/04 methylprednis olone 2000 MG Injection intravenously 125.0 mg Re-initiate treatment only upon physician approval. 2022 active 12/04 hydrocortison e 100 MG Injection intravenously 100.0 mg Re-initiate treatment only upon physician approval. 2022 active 12/04 diphenhydrami ne hydrochloride 0.5 MG/ML Injectable Solution intravenously 50.0 mg Re-initiate treatment only upon physician approval. 2022 active 11/13 methylprednis olone 2000 MG Injection intravenously 125.0 mg Re-initiate treatment only upon physician approval. 2022 active 11/13 diphenhydrami ne hydrochloride 0.5 MG/ML Injectable Solution intravenously 50.0 mg Re-initiate treatment only upon physician approval. 2022 active 11/13 1 ML epinephrine 1 MG/ML Injection intramuscularl y 0.3 mg once Re-initiate treatment only upon physician approval. 2022 active 11/13 famotidine 10 MG/ML Injectable Solution intravenously 20.0 mg Re-initiate treatment only upon physician approval. 2022 active 11/13 hydrocortison e 100 MG Injection intravenously 100.0 mg Re-initiate treatment only upon physician approval. 2022 active 10/23 famotidine 10 MG/ML Injectable Solution intravenously 20.0 mg Re-initiate treatment only upon physician approval. 2022 active 10/23 methylprednis olone 2000 MG Injection intravenously 125.0 mg Re-initiate treatment only upon physician approval. 2022 active 10/23 diphenhydrami ne hydrochloride 0.5 MG/ML Injectable Solution intravenously 50.0 mg Re-initiate treatment only upon physician approval. 2022 active 10/23 hydrocortison e 100 MG Injection intravenously 100.0 mg Re-initiate treatment only upon physician approval. 2022 active 10/23 1 ML epinephrine 1 MG/ML Injection intramuscularl y 0.3 mg once Re-initiate treatment only upon physician approval. 2022 active 09/07 lorazepam 0.5 MG Oral Tablet orally 1.0 tablet every 4 hours 2022 active 09/07 olanzapine 2.5 MG Oral Tablet orally 1.0 tablet every day 2022 active 09/07 prochlorperaz ine 10 MG Oral Tablet orally 1.0 tablet every 6 hours 2022 active 09/07 nystatin 100 UNT/MG Topical Powder topically 1.0 application 3 times per day 2022 active 09/07 ondansetron 8 MG Oral Tablet orally 1.0 tablet every 8 hours 2022 active 09/07 folic acid 1 MG Oral Tablet orally 1.0 tablet daily 2022 active 09/07 dexamethasone 4 MG Oral Tablet orally 1.0 tablet 2 times per day 2022 active 07/25 oxycodone hydrochloride 5 MG Oral Tablet orally 1.0 tablet every 4 hours 2022 active 04/20 lorazepam 0.5 MG Oral Tablet orally 1.0 tablet every 4 hours 2021 active Problems Diagnosis Status Date of Diagnosis Resolution [...] pulmonary nodule Active Abdominal bloating (finding) Active Vital Signs Date Type Value 12/12/2022 Body Temperature 96.70 12/12/2022 Heart Beat 78.00 12/12/2022 Respiratory Rate 18.00 12/12/2022 Oxygen Saturation 99.00 12/12/2022 BSA 1.98 12/12/2022 Pain Scale 5.00 12/12/2022 Weight 180.20 12/12/2022 Height 69.25 12/12/2022 BMI 26.42 12/12/2022 Intravascular Systolic 140 12/12/2022 Intravascular Diastolic 74 12/24/2022 BSA 1.99 12/24/2022 BMI 26.54 12/24/2022 Height 69.25 12/24/2022 Weight 181.00 12/24/2022 Pain Scale 2.00 12/24/2022 Intravascular Systolic 122 12/24/2022 Intravascular Diastolic 82 12/24/2022 Oxygen Saturation 100.00 12/24/2022 Respiratory Rate 20.00 12/24/2022 Body Temperature 97.10 12/24/2022 Heart Beat 86.00 01/01/2023 Body Temperature 97.10 01/01/2023 Heart Beat 98.00 01/01/2023 Respiratory Rate 18.00 01/01/2023 Oxygen Saturation 99.00 01/01/2023 BSA 1.98 01/01/2023 Pain Scale 2.00 01/01/2023 Weight 179.40 01/01/2023 Height 69.25 01/01/2023 BMI 26.30 01/01/2023 Intravascular Systolic 140 01/01/2023 Intravascular Diastolic 82 01/08/2023 BSA 1.97 01/08/2023 BMI 26.18 01/08/2023 Height 69.25 01/08/2023 Weight 178.60 01/08/2023 Pain Scale 0.00 01/08/2023 Intravascular Systolic 128 01/08/2023 Intravascular Diastolic 84 01/08/2023 Oxygen Saturation 99.00 01/08/2023 Respiratory Rate 16.00 01/08/2023 Body Temperature 96.90 01/08/2023 Heart Beat 86.00 Notes Section * Med Onc Follow-up Note Patient Name: HANNY CARTER? Date Of : 1970? Today's Provider:?Jing Chavez RN, FIRER BOILER, MA, OCN Date of Service:?12/12/2022? Attending Physician:?Hesham Brown (Hematology/Oncology), Manuel Fry (Thoracic Surgery) Referring Provider:??Nathalie Dowling PA-C HEMATOLOGY/ MEDICAL ONCOLOGY FOLLOW UP VISIT Reason for Visit Here for??toxicity check following cycle #3 of now carboplatin and pemetrexed Assessment 1. New left lower lobe lung mass in a non-smoker, poorly differentiated non- small cell lung carcinoma,??ALK mutation present, PD-L1??0%, brain MRI negative ??? Patient is status post??left lower lobectomy ??? Pathology reveals??pT2b pN1 M0 ?Standard of care would be adjuvant chemotherapy??for her stage II disease ?There is an ongoing clinical trial and ALK mutations??evaluating chemotherapy versus ALK directed therapy not open locally ?She would be eligible??for the alchemist study??of crizotinib versus observation once done with systemic chemotherapy ??? 10/23/2022 Started cisplatin and pemetrexed D1, delayed due to dental procedures. 2.?? Abdominal bloating of unclear etiology ?Has had some work-up but not endoscopy and colonoscopy ??? Increased with chemotherapy. 3.?? Right lower lobe pulmonary nodule ?Consider ongoing imaging, this is not FDG avid 5.?? Depression not currently on medication 6.?? Progressive normocytic anemia ??? Likely secondary to chemotherapy Plan 1.?Patient to return to the office on 12/25/2022??for her fourth and final cycle of??pemetrexed and??carboplatinum.?? (Cisplatin him was DC'd due to drug shortage.?? We are now using carboplatinum at an AUC of 5??every 21 days??for the last 2 remaining cycles.) 2.?Check ferritin, iron panel, reticulocyte count,??and occult stools to??evaluate for??iron deficiency and GI bleed??with??progressive??anemia. 3.?? I encouraged patient to resume oral iron daily. 4.?? Encouraged??warm baking soda rinses,??Biotene, and Magic mouthwash for??oral tenderness. 5. ??Continue famotidine??daily. 6.?? Prescription sent for Zyrtec??(history of allergies) 7.?? Monitor??neuropathy 8.?? Letter written for??accommodations??at work 9. ??Continue to follow with psychiatric social worker supervisor 10. ??Encouraged to speak to the research nurse??regarding??alchemist trial 11.?? Repeat imaging??after completion of chemotherapy??for routine surveillance 12.?? Depression currently not on medication???emotional support provided Advanced Care Planning Not discussed at this visit. Pain Scale on Today's Visit 5 Pain Plan on Today's Visit Date of Service: 12/12/2022 Pain Scale (0-10): 5 Pain Treatment Plan: Non-opioid analgesics or techniques Comment: Smoking Status Smoking Tobacco : Never smoker; Smokeless Tobacco : Never used smokeless tobacco; Vaping : Never vaped Depression Screening Tool Status Was screened; Outcome positive: No; Screening Date: 10/23/2022; Screening Tool: [facility] MD-PHQ2; Total depression score: 0 History of Present Illness 51-year-old lifelong??non-smoker who has had symptoms of bloating ongoing for years, recently felt a popping, cracking, pressure sensation left side of chest??that led to further imaging 1.?? 04/03/2022:??3.4 x 2.1 cm left lower lobe 2.?? 04/10/2022:??CT scan chest shows ??? Lobulated mass in anterior left lower lobe measuring 3.9 x 2.5 x 2.2 cm ?Indeterminate 6 mm pulm nodule anterior right lower lobe ?Mildly enlarged left hilar node measuring 11 mm ??? No other adenopathy Adrenal glands are normal 3. ??05/01/2022: PET CT scan images personally reviewed ??? Findings suspicious for left lower lobe primary lung neoplasm with possible early left interlobar lymph node metastases ??? Diffuse uptake in endometrial canal this is a pattern typical for??physiologic menstruation uptake --??Images personally reviewed and agree??with assessment 4.?? 05/17/2022:??Left lung lower lobe mass ??? Positive for malignancy ?Poorly differentiated non-small cell lung carcinoma ??? Morphology and immunostains most compatible??with poorly differential adenocarcinoma ??? TTF positive 5.?05/27/2022: MRI brain??shows unremarkable brain MRI specific No intracranial mets 6.07/10/2022: Left thoracotomy and left lobectomy with mediastinal lymph node dissection ??? Poorly differentiated invasive adenocarcinoma of lung origin ?I see no predominant ?Tumor total size of 4.1 cm ?Surgical margins negative ?4 peribronchial lymph nodes negative for malignancy ??? Negative for visceropleural invasion ?Positive LVI ?[id number] ?TPS less than??1% negative PD-L1 expression ?TMB low ?ALK gene rearrangement TREATMENT TO DATE: 1.?? 07/10/2022: Left thoracotomy and lobectomy revealing above pathology 2.?? 10/23/2022: Cisplatin and pemetrexed, delayed due to dental procedures Interval History Hanny is in the office at today for a??toxicity check following her third cycle of chemotherapy.?? She states nausea level was significantly reduced??with the discontinuation of cisplatin him??in the transition to carboplatinum.?? Unfortunately however she notes increased tenderness within the oropharynx. ??She states it feels that things are burned and that there is something sticking in the distal??esophagus.?? She does use famotidine once daily. ??An occasional Rolaids which have some modest benefit. ??She was given a prescription for Magic mouthwash??but has not had it filled thus far.?? She states warm salt water rinses tend to cause some nausea.?? And we talked about avoiding the salt and transitioning to warm baking soda rinses. Hanny describes numbness in her hands and feet that developed after her last treatment.?? She statesis not particularly painful but some minor annoyance. ??She also describes tenderness across her ribs and along her left left scapula.?? She is quite tearful in the office at today. ??She is grievingthe end of her??relationship with her boyfriend. ??They had talked of marriage. ??She states he is no longer in contact with her.?? In addition she recently was hired to work at [employer]. ??But she missed to me days of work and she was terminated.?? She continues to verbalize much concern and worry regarding her finances.?? She is working with our social media executive regarding her difficult social situation. Hanny does have a myriad of concerns??today.?? She is also requesting prescription for Zyrtec. Review of Systems Remaining 14 point comprehensive review of systems within normal limits. NCCN Distress Thermometer and Problem List were collected and documented in the patient chart.?? Remarkable symptoms and concerns were discussed with the patient.?? Any additional follow-up is indicated in the plan. Past Medical and Surgical History Major depressive disorder, anxiety Current Medications Medication List Name Date Ondansetron Oral 09/07/2022 Ferrous Sulfate Oral 04/13/2022 Montelukast Oral 04/13/2022 Cetirizine Oral 04/13/2022 Miscellaneous Drug 09/06/2022 Folic Acid Oral 09/07/2022 Oxycodone Oral 07/25/2022 Albuterol HFA Inhaler 90 mcg/actuation 1 Dexamethasone Oral 09/07/2022 Nystatin Topical Powder 09/07/2022 Prochlorperazine Oral 09/07/2022 Famotidine Oral 11/29/2022 Magic Mouthwash (Maalox-Visc Lidocaine-B enadryl Elix) 12/07/2022 Lorazepam Oral 09/07/2022 Olanzapine Oral 09/07/2022 Symbicort (Budesonide-Formoterol HFA Inh aler 160 mcg-4.5 mcg/actuation) 04/13/2022 Allergies Penicillins, Sulfamide, aspirin, clarithromycin and rofecoxib Family History Uncle with some kind of throat,??stomach cancer Social History Previously worked at??[employer] she is not happy with the job looking for another job,??does not smoke lifelong non-smoker was in a relationship??broke up and now back with??her significant other. ??They were engaged have known each other for 30 years. ??Her support system is her mom she has no children, she is not close with her brother who lives in [place]. No update Vital Signs Blood pressure: 140/74, Pulse: 78, Temperature: 96.7 F, Respirations: 18, O2 sat: 99%, Pain Scale: 5, Height: 69.25 in, Weight: 180.2 lb, BSA: 1.98, BMI: 26.42 kg/m2 Covid-19 vaccine (Moderna) (04/13/2022), Elsewhere; Covid-19 vaccine (Moderna) (04/13/2022), Elsewhere; Flu vaccine - Adult (05/30/2022), Not given other reason Performance Status ECOG or Karnofsky ECO Symptoms, but ambulatory. Restricted in physically strenuous activity, but ambulatory and able to carry out work of a light or sedentary nature (e.g., light housework, office work). (Date: 12/12/2022) Karnofsky:?Not recorded Physical Exam GENERAL:??Patient is alert and oriented x3. ??In no apparent distress. ??She is seated comfortably moods appropriate.?? She does appear somewhat anxious throughout the visit intermittently??when discussing variety of topics. HEENT:??Pupils equal round reactive to light. ??Sclera nonicteric. ??Conjunctive are pink. RESP:??No dyspnea with conversation. ABDOMEN:??Not examined today EXT:??Lower extremities without any edema SKIN:??No rash or bruising noted NEURO:??Gait intact Genetics/Molecular/Biomarkers ? Additional Labs, Imaging, and Other Studies Lab Results CBC Lab Results 12/12/2022 12/04/2022 11/18/2022 11/15/2022 11/14/19 23 10/29/2022 CBC WBC x 10^3/uL 3.1 3.2 3.6 5.9 RBC x 10^6/uL 2.92 (L) 3.11 (L) 3.87 (L) 4.19 NRBC % /100 wbc 0.0 0.0 0.0 0.0 HGB g/dL 9.7 (L) 10.4 (L) 12.2 13.1 HCT % 28.0 (L) 29.6 (L) 36.5 38.8 MCV fL 95.9 95.2 94.3 92.6 MCH pg 33.2 33.4 31.5 31.3 MCHC g/dL 34.6 35.1 (H) 33.4 33.8 RDW % 12.90 13.20 12.70 12.00 PLT x 10^3/uL 141 269 338 259 MPV fL 9.4 (L) 9.4 (L) 9.7 9.8 Shirlene % 35.3 (L) 57.8 62.5 55.4 LY % 53.6 (H) 32.2 29.1 32.3 MO % 7.5 9.7 8.1 6.1 EO % 2.6 0.0 0.0 5.2 IG % 0.3 0.3 0.3 0.3 Shirlene # (ANC) x 10^3/uL 1.1 (L) 1.9 2.2 3.3 BA % 0.7 0.0 0.0 0.7 MO # x 10^3/uL 0.2 0.3 0.3 0.4 EO # x 10^3/uL 0.1 0.0 0.0 0.3 BA # x 10^3/uL 0.0 0.0 0.0 0.0 IG # x 10^3/uL 0.01 0.01 0.01 0.02 LY # x 10^3/uL 1.6 1.0 1.0 1.9 Chemistries Lab Results 12/12/2022 12/04/2022 11/18/2022 11/15/2022 11/14/1910/29/2022 Chemistries Glucose mg/dL 92 BUN mg/dL 16.0 Creatinine mg/dL 1.00 Creatinine, iSTAT mg/dL 0.8 0.8 1.2 Sodium mmol/L 142 Potassium mmol/L 3.8 Chloride mmol/L 106 CO2 mmol/L 29 Calcium mg/dL 9.7 Albumin g/dL 4.3 Total protein g/dL 6.9 Bilirubin, total mg/dL 0.5 Alkaline phosphatase U/L 70 AST/SGOT U/L 21 ALT/SGPT U/L 18 GFR estimate mL/min/1.73m2 88.3 88.3 67.6; 54.3 (L) ? Lab Results 12/12/2022 12/04/2022 11/18/2022 11/15/202211/13/20 23 10/29/2022 Anemia Labs Reticulocyte count % 0.30 (L) Reticulocyte, absolute x 10^6/mL 0.01 (L) Immature reticulocyte fraction, % 0.00 Reticulocyte cellular hemoglobin pg 38.4 (H) Surveys/Consents/Other Discussions NCCN distress screening {and PHQ 9 distress screen were} was collected and documented in the patient's chart. ??NCCN distress score 5. ??Remarkable concerns ??were discussed with the patient, any additional follow-up as indicated in the plan below. The patient verbalized understanding of plan of care. Patient will be seen as above, sooner if needed.?6 minutes was spent in preparation ?50 minutes was spent [id number] ?5 minutes was spent in documentation??and discussion with Kathy Gupta RN, RAMY, BERNICE, OCN CC: ? Electronically signed by Jing Chavez RN, RAMY, BERNICE, OCN 12/12/2022 18:03 CDT
--- OUTSIDE RECORDS SUMMARY | 2025-02-09 15:06 | XMS_ITS | CCD ---
Author Name Interface, [id number] lity Address [address] [place], [place] [id number] Organization [facility] Address [facility] [place] [address] Care Team Providers Care Seasonal Package Handler Name Role Phone Kevin CORTEZ, Hesham Unavailable Unavailable Ang CORTEZ, Manuel Unavailable Unavailable Allergies and Adverse Reactions Reason for Visit Functional Status Diagnostic Results Medications Problems Social History
--- OUTSIDE RECORDS SUMMARY | 2025-02-09 15:06 | XMS_ITS ---
Author Name Interface, [id number] lity Address [address] [place] [address] Oncology Address [address] [place] [address] Allergies and Adverse Reactions Plan Reason for Visit Encounters Diagnostic Results Medications Problems Vital Signs Notes Section
--- OUTSIDE RECORDS SUMMARY | 2025-02-09 15:06 | XMS_ITS ---
Author Name Interface, [id number] lity Address [address] [place] [address] Oncology Address [address] [place] [address] Allergies and Adverse Reactions Plan Reason for Visit Encounters Diagnostic Results Medications Problems Vital Signs
--- OUTSIDE RECORDS SUMMARY | 2025-02-09 15:06 | XMS_ITS ---
Author Name Interface, [id number] lity Address [address] [place] [address] Oncology Address [address] [place] [address] Allergies and Adverse Reactions Plan Reason for Visit Encounters Diagnostic Results Medications Problems Vital Signs Notes Section
--- OUTSIDE RECORDS SUMMARY | 2025-02-09 15:06 | XMS_ITS ---
Author Name Interface, [id number] lity Address [address] [place] [address] Oncology Address [address] [place] [address] Allergies and Adverse Reactions Plan Reason for Visit Encounters Diagnostic Results Medications Problems Vital Signs Notes Section
--- OUTSIDE RECORDS SUMMARY | 2025-02-09 15:06 | XMS_ITS ---
Author Name Interface, [id number] lity Address [address] [place] [address] Oncology Address [address] [place] [address] Allergies and Adverse Reactions Plan Reason for Visit Encounters Diagnostic Results Medications Problems Vital Signs Notes Section
--- OUTSIDE RECORDS SUMMARY | 2025-02-09 15:06 | XMS_ITS ---
Author Name Interface, [id number] lity Address [address] [place] [address] Oncology Address [address] [place] [address] Allergies and Adverse Reactions Plan Reason for Visit Encounters Diagnostic Results Medications Problems Vital Signs Notes Section
--- OUTSIDE RECORDS SUMMARY | 2025-02-09 15:07 | XMS_ITS | CCD ---
Author Name Interface, [id number] lity Address [address] [place], [place] [id number] Organization [facility] Address [facility] [place] [address] Care Team Providers Care Rest Room Maid Name Role Phone Kevin CORTEZ, Hesham Unavailable Unavailable Ang CORTEZ, Manuel Unavailable Unavailable Allergies and Adverse Reactions Reason for Visit Functional Status Diagnostic Results Medications Problems Social History
--- OUTSIDE RECORDS SUMMARY | 2025-02-09 15:07 | XMS_ITS ---
Author Name Interface, [employer] l[employer] Address [address] [facility] [address] [place] [address] [facility] Oncology Address [address] [facility] [address] [place] [address] Allergies and Adverse Reactions Medication/Group Name Reaction [...] 10 MIN 12/12/2022 APPOINTMENT OV 30 MIN 12/05/2022 APPOINTMENT HYDRATION 2 HR 12/04/2022 APPOINTMENT LAB 10 MIN 12/04/2022 APPOINTMENT TREATMENT 5 HR 12/04/2022 APPOINTMENT OV 20 MIN 12/04/2022 LABORDER iSTAT creatinine panel 12/04/2022 LABORDER CBC w/ auto diff 12/12/2022 LABORDER Ferritin panel 12/12/2022 LABORDER Reticulocyte [...] Visit SURVIVORSHIP 60 MIN Encounters Date Name 12/04/2022 Anemia 12/04/2022 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 [phone] Phone: () - 12/04 iSTAT creat inine panel GFR estim ate ml/min /1.73m ^2 88.3 GFR is calculate d using the CKD-EPI equation. FINAL [facility]ham aguilar [facility] - [place], [address] [place] [facility] [phone] 0 Phone: () - 12/04 CBC w/ auto diff WBC K/uL 3.0 8.9 3.2 FINAL Hesham aguilar [facility] - [place], [address] [place] [facility] [phone] 0 Phone: () - 12/04 CBC w/ auto diff HGB g/dL 11.3 15.2 10.4 Low FINAL Hesham aguilar [facility] - [place], [address] [place] [phone] 0 Phone: () - 12/04 CBC w/ auto diff PLT K/uL 113.0 364.0 269 FINAL Hesham aguilar [facility] - [place], [address] [place] [phone] 0 Phone: () - 12/04 CBC w/ auto diff Shirlene # (ANC) K/uL 1.6 6.6 1.9 FINAL Hesham aguilar [facility] - [place], [address] [place] [phone] 0 Phone: () - 12/04 CBC w/ auto diff Shirlene % % 43.0 74.0 57.8 FINAL Hesham aguilar [facility] - [place], [address] [place] [phone] 0 Phone: () - 12/04 CBC w/ auto diff IG % % 0.0 0.5 0.3 FINAL Hesham aguilar [facility] - [place], [address] [place] [phone] 0 Phone: () - 12/04 CBC w/ auto diff IG # K/uL 0.0 0.03 0.01 FINAL Hesham aguilar [facility] - [place], [address] [place] [phone] 0 Phone: () - 12/04 CBC w/ auto diff LY % % 14.0 41.0 32.2 FINAL Hesham aguilar [facility] - [place], [address] [place] [phone] 0 Phone: () - 12/04 CBC w/ auto diff MO % % 6.0 15.0 9.7 FINAL Hesham aguilar [facility] - [place], [address] [place] [phone] 0 Phone: () - 12/04 CBC w/ auto diff EO % % 0.0 7.0 0.0 FINAL Hesham Kevin Bryanot a [facility] - [place], [address] [place] [phone] 0 Phone: () - 12/04 CBC w/ auto diff BA % % 0.0 2.0 0.0 FINAL Hesham Kevin Bryanot a [facility] - [place], [address] [place] [phone] 0 Phone: () - 12/04 CBC w/ auto diff LY # K/uL 0.4 3.6 1.0 FINAL Hesham Brown Bryanchan aguilar [facility] - [place], [address] [place] [phone] 0 Phone: () - 12/04 CBC w/ auto diff MO # K/uL 0.2 1.3 0.3 FINAL Hesham Brown Bryanchan aguilar [facility] - [place], [address] [place] [phone] 0 Phone: () - 12/04 CBC w/ auto diff EO # K/uL 0.0 0.6 0.0 FINAL Hesham Kevin Bryanchan aguilar [facility] - [place], [address] [place] [phone] 0 Phone: () - 12/04 CBC w/ auto diff BA # K/uL 0.0 0.2 0.0 FINAL Hesham Kevin Bryanchan a [facility] - [place], [address] [place] [phone] 0 Phone: () - 12/04 CBC w/ auto diff NRBC % #/100W BC 0.0 0.2 0.0 FINAL Hesham Kevin Bryanchan a [facility] - [place], [address] [place] [phone] 0 Phone: () - 12/04 CBC w/ auto diff RBC M/uL 3.9 5.1 3.11 Low FINAL Hesham Rich a [facility] - [place], [address] [place] [phone] 0 Phone: () - 12/04 CBC w/ auto diff HCT % 35.0 48.0 29.6 Low FINAL Hesham Rich a [facility] - [place], [address] [place] [phone] 0 Phone: () - 12/04 CBC w/ auto diff MCV fL 80.0 104.0 95.2 FINAL [facility]esham aguilar [facility] - [place], [address] [place] [phone] 0 Phone: () - 12/04 CBC w/ auto diff MCH pg 26.0 35.0 33.4 FINAL Hesham Brown Hilario aguilar [facility] - [place], [address] [place] [phone] 0 Phone: () - 12/04 CBC w/ auto diff MCHC g/dL 30.0 35.0 35.1 High FINAL Hesham aguilar [facility] - [place], [address] [place] [id number] 0 Phone: () - 12/04 CBC w/ auto diff MPV fL 9.5 13.4 9.4 Low FINAL [facility]esham aguilar [facility] - [place], [address] [place] [phone] 0 Phone: () - 12/04 CBC w/ auto diff RDW % 11.4 16.1 13.20 FINAL [facility]esham aguilar [facility] - [place], [address] [place] [phone] 0 Phone: () - 12/12 Saad tin panel Saad tin NG/ML 10.0 130.0 314.40 High FINAL Hesham Brown Hilario a [facility] - [place], [address] [place] [phone] 0 Phone: () - 12/12 CBC w/ auto diff WBC K/uL 3.0 8.9 3.1 FINAL Hesham Adamsot a [facility] - [place], [address] [place] [phone] 0 Phone: () - 12/12 CBC w/ auto diff HGB g/dL 11.3 15.2 9.7 Low FINAL Hesham Adamsot a [facility] - [place], [address] [place] [phone] 0 Phone: () - 12/12 CBC w/ auto diff PLT K/uL 113.0 364.0 141 FINAL Hesham Adamsot a [facility] - [place], [address] [place] [phone] 0 Phone: () - 12/12 CBC w/ auto diff Shirlene # (ANC) K/uL 1.6 6.6 1.1 Low FINAL Hesham Adamsot a [facility] - [place], [address] [place] [id number] 0 Phone: () - 12/12 CBC w/ auto diff Shirlene % % 43.0 74.0 35.3 Low FINAL Hesham Adamsot a [facility] - [place], [address] [place] [phone] 0 Phone: () - 12/12 CBC w/ auto diff IG % % 0.0 0.5 0.3 FINAL Hesham Rich a [facility] - [place], [address] [place] [phone] 0 Phone: () - 12/12 CBC w/ auto diff IG # K/uL 0.0 0.03 0.01 FINAL Hesham Adamsot a [facility] - [place], [address] [place] [phone] 0 Phone: () - 12/12 CBC w/ auto diff LY % % 14.0 41.0 53.6 High FINAL Hesham Adamsot a [facility] - [place], [address] [place] [phone] 0 Phone: () - 12/12 CBC w/ auto diff MO % % 6.0 15.0 7.5 FINAL Hesham Adamsot a [facility] - [place], [address] [place] [phone] 0 Phone: () - 12/12 CBC w/ auto diff EO % % 0.0 7.0 2.6 FINAL Hesham Adamsot a [facility] - [place], [address] [place] [phone] 0 Phone: () - 12/12 CBC w/ auto diff BA % % 0.0 2.0 0.7 FINAL Hesham Adamsot a [facility] - [place], [address] [place] [id number] 0 Phone: () - 12/12 CBC w/ auto diff LY # K/uL 0.4 3.6 1.6 FINAL Hesham Brown Bryanot a [facility] - [place], [address] [place] [phone] 0 Phone: () - 12/12 CBC w/ auto diff MO # K/uL 0.2 1.3 0.2 FINAL Hesham Brown Hilario aguilar [facility] - [place], [address] [place] [phone] 0 Phone: () - 12/12 CBC w/ auto diff EO # K/uL 0.0 0.6 0.1 FINAL Hesham Brown Hilario a [facility] - [place], [address] [place] [phone] 0 Phone: () - 12/12 CBC w/ auto diff BA # K/uL 0.0 0.2 0.0 FINAL Hesham Rich a [facility] - [place], [address] [place] [phone] 0 Phone: () - 12/12 CBC w/ auto diff NRBC % #/100W BC 0.0 0.2 0.0 FINAL Hesham Kevin Bryanot a [facility] - [place], [address] [place] [id number] 0 Phone: () - 12/12 CBC w/ auto diff RBC M/uL 3.9 5.1 2.92 Low FINAL Hesham Brown Bryanchan aguilar [facility] - [place], [address] [facility] [address] [place] [phone] 0 Phone: () - 12/12 CBC w/ auto diff HCT % 35.0 48.0 28.0 Low FINAL Hesham Brown Bryanchan aguilar [facility] - [place], [address] [facility] [address] [place] [phone] 0 Phone: () - 12/12 CBC w/ auto diff MCV fL 80.0 104.0 95.9 FINAL Hesham Brown Bryanchan aguilar [facility] - [place], [address] [place] [address] d [address] [place] [phone] 0 Phone: () - 12/12 CBC w/ auto diff MCH pg 26.0 35.0 33.2 FINAL Hesham Brown Bryanchan aguilar [facility] - [place], [address] [place] [address] [address] [place] [id number] 0 Phone: () - 12/12 CBC w/ auto diff MCHC g/dL 30.0 35.0 34.6 FINAL Hesham Brown Bryanchan aguilar [facility] - [place], [address] [place] [address] [address] [place] [phone] 0 Phone: () - 12/12 CBC w/ auto diff MPV fL 9.5 13.4 9.4 Low FINAL Hesham Brown Bryanchan aguilar [facility] - [place], [address] [place] [address] [address] [place] [phone] 0 Phone: () - 12/12 CBC w/ auto diff RDW % 11.4 16.1 12.90 FINAL Hesham Brown Bryanchan aguilar [facility] - [place], [address] [place] [address] [address] [place] [id number] 0 Phone: () - 12/12 Retic ulocy te count panel Retic ulocy te, absol maia M/uL 0.02 0.08 0.01 Low FINAL Hesham Brown Bryanchan aguilar [facility] - [place], [address] [place] [phone] 0 Phone: () - 12/12 Retic ulocy te count panel Retic ulocy te count % 0.4 1.6 0.30 Low FINAL Hesham aguilar [facility] - [place], [address] [place] [phone] 0 Phone: () - 12/12 Retic ulocy te count panel Immat ure retic ulocy te fract ion, % % 0.0 16.5 0.00 FINAL Hesham aguilar [facility] - [place], [address] [place] [id number] 0 Phone: () - 12/12 Retic ulocy te count panel Retic ulocy te cellu lar hemog lobin pg 28.0 37.0 38.4 High FINAL Hesham aguilar [facility] - [place], [address] [place] [phone] 0 Phone: () - 12/12 Iron profi le TIBC ug/dL 250.0 425.0 267 FINAL Hesham Adams lauren Oncology [facility], [address] [facility] [phone] 0 Phone: () - 12/12 Iron profi le Iron ug/dL 50.0 175.0 194 High FINAL Hesham aguilar Oncology [facility], [address] [facility] [phone] 0 Phone: () - 12/12 Iron profi le Unbou nd iron capac ity ug/dL 75.0 410.0 73 Low FINAL Hesham Rich a Oncology [facility], [address] [place] [phone] 0 Phone: () - 12/12 Iron profi le Iron, % satur ation % 20.0 55.0 73 High FINAL Hesham aguilar Oncology [facility], [address] [facility] [phone] 0 Phone: () - 12/13 Color (ua) Yellow FINAL [facility] - [place], [address] [place] [phone] 0 Phone: () - 12/13 Appea kasia (ua) Clear FINAL Jing Rich a [facility] - [place], [address] [place] [phone] 0 Phone: () - 12/13 Gluco se (ua), qual Negativ e FINAL Jing aguilar [facility] - [place], [address] [place] [phone] 0 Phone: () - 12/13 Bilir ubin (ua) Negativ e FINAL Jing aguilar [facility] - [place], [address] [place] [phone] 0 Phone: () - 12/13 Urina lysis , aceto ne or keton e luis alberto s measu remen t Negativ e FINAL Jing Rich a [facility] - [place], [address] [place] [phone] 0 Phone: () - 12/13 Speci fic gravi ty (ua) 1.005 1.02 1.020 FINAL Jing aguilar [facility] - [place], [address] [place] [phone] 0 Phone: () - 12/13 Blood (ua) Negativ e FINAL Jing aguilar [facility] - [place], [address] [place] [phone] 0 Phone: () - 12/13 pH (ua) 5.0 8.0 6.0 FINAL Jing Rich a [facility] - [place], [address] [place] [id number] 0 Phone: () - 12/13 Prote in (ua) Negativ e FINAL Jing aguilar [facility] - [place], [address] [place] [id number] 0 Phone: () - 12/13 Urobi linog en (ua) 0.2 1.0 0.2 FINAL Jing Adamsot a [facility] - [place], [address] [place] [id number] 0 Phone: () - 12/13 Nitri te (ua) Negativ e FINAL Jing Adamsot a [facility] - [place], [address] [place] [phone] 0 Phone: () - 12/13 Leuko cyte hollie ase (ua), qual Negativ e FINAL Jing Adamsot a [facility] - [place], [address] [place] [id number] 0 Phone: () - 12/13 UA comme nt 1 No Microsc opic Ordered FINAL Jing Rich a [facility] - [place], [address] [place] [phone] 0 Phone: () - 12/20 Misc other lab See digital marketing coordinator d 12/24 CBC w/ auto diff WBC K/uL 3.0 8.9 3.9 FINAL Hesham Rich a [facility] - [place], [address] [place] [phone] 0 Phone: () - 12/24 CBC w/ auto diff HGB g/dL 11.3 15.2 9.0 Low FINAL Hesham Rich a [facility] - [place], [address] [place] [phone] 0 Phone: () - 12/24 CBC w/ auto diff PLT K/uL 113.0 364.0 171 FINAL Hesham Rich a [facility] - [place], [address] [place] [id number] 0 Phone: () - 12/24 CBC w/ auto diff Shirlene # (ANC) K/uL 1.6 6.6 1.5 Low FINAL Hesham Adamsot a [facility] - [place], [address] [place] [phone] 0 Phone: () - 12/24 CBC w/ auto diff Shirlene % % 43.0 74.0 38.0 Low FINAL Hesham Kevin Bryanot a [facility] - [place], [address] [place] [phone] 0 Phone: () - 12/24 CBC w/ auto diff IG % % 0.0 0.5 0.5 FINAL Hesham Kevin Bryanot a [facility] - [place], [address] [place] [phone] 0 Phone: () - 12/24 CBC w/ auto diff IG # K/uL 0.0 0.03 0.02 FINAL Hesham Kevin Bryanot a [facility] - [place], [address] [place] [phone] 0 Phone: () - 12/24 CBC w/ auto diff LY % % 14.0 41.0 44.6 High FINAL Hesham Brown Bryanot a [facility] - [place], [address] [place] [phone] 0 Phone: () - 12/24 CBC w/ auto diff MO % % 6.0 15.0 13.8 FINAL Hesham Brown Bryanot a [facility] - [place], [address] [place] [phone] 0 Phone: () - 12/24 CBC w/ auto diff EO % % 0.0 7.0 2.8 FINAL Hesham Brown Bryanot a [facility] - [place], [address] [place] [phone] 0 Phone: () - 12/24 CBC w/ auto diff BA % % 0.0 2.0 0.3 FINAL Hesham Brown Bryanot a [facility] - [place], [address] [place] [id number] 0 Phone: () - 12/24 CBC w/ auto diff LY # K/uL 0.4 3.6 1.8 FINAL Hesham Brown Bryanot a [facility] - [place], [address] [place] [phone] 0 Phone: () - 12/24 CBC w/ auto diff MO # K/uL 0.2 1.3 0.5 FINAL Hesham Adamsot a [facility] - [place], [address] [place] [id number] 0 Phone: () - 12/24 CBC w/ auto diff EO # K/uL 0.0 0.6 0.1 FINAL Hesham Rihc a Oncology - [place], [address] [place] [id number] 0 Phone: () - 12/24 CBC w/ auto diff BA # K/uL 0.0 0.2 0.0 FINAL Hesham Rich a [facility] - [place], [address] [place] [phone] 0 Phone: () - 12/24 CBC w/ auto diff NRBC % #/100W BC 0.0 0.2 0.0 FINAL Hesham aguilar [facility] - [place], [address] [place] [id number] 0 Phone: () - 12/24 CBC w/ auto diff RBC M/uL 3.9 5.1 2.70 Low FINAL Hesham aguilar [facility] - [place], [address] [place] [id number] 0 Phone: () - 12/24 CBC w/ auto diff HCT % 35.0 48.0 26.0 Low FINAL Hesham Rich a [facility] - [place], [address] [place] [id number] 0 Phone: () - 12/24 CBC w/ auto diff MCV fL 80.0 104.0 96.3 FINAL Hesham Adamsot a [facility] - [place], [address] [place] [id number] 0 Phone: () - 12/24 CBC w/ auto diff MCH pg 26.0 35.0 33.3 FINAL Hesham aguilar [facility] - [place], [address] [place] [phone] 0 Phone: () - 12/24 CBC w/ auto diff MCHC g/dL 30.0 35.0 34.6 FINAL Hesham aguilar [facility] - [place], [address] [place] [phone] 0 Phone: () - 12/24 CBC w/ auto diff MPV fL 9.5 13.4 8.5 Low FINAL Hesham aguilar [facility] - [place], [address] [place] [phone] 0 Phone: () - 12/24 CBC w/ auto diff RDW % 11.4 16.1 13.60 FINAL Hesham aguilar [facility] - [place], [address] [place] [phone] 0 Phone: () - 12/24 iSTAT creat inine panel Creat inine , iSTAT mg/dl 0.6 1.3 0.9 FINAL Hesham aguilar [facility] - [place], [address] [place] [phone] 0 Phone: () - 12/24 iSTAT creat inine panel GFR estim ate ml/min /1.73m ^2 76.6 GFR is calculate d using the CKD-EPI equation. FINAL Hesham aguilar [facility] - [place], [address] [place] [phone] 0 Phone: () - 12/24 CMP Album in g/dL 3.2 5.2 4.4 FINAL Hesham aguilar On[facility] - [place], [address] [place] [phone] 0 Phone: () - 12/24 CMP Alkal ine phosp hatas e U/L 46.0 116.0 75 FINAL Hesham aguilar On[facility] - [place], [address] [place] [phone] 0 Phone: () - 12/24 CMP ALT/S GPT U/L 7.0 40.0 20 FINAL [place] [address] [address] [facility] [address] [facility] [phone] 0 Phone: () - 12/24 CMP AST/S GOT U/L 13.0 40.0 24 FINAL Hesham Brown [place] [address] [address] [facility] [address] [facility] [phone] 0 Phone: () - 12/24 CMP BUN mg/dL 9.0 23.0 12.0 FINAL [place] [address] [address] [facility] [address] [facility] [phone] 0 Phone: () - 12/24 CMP Calci um mg/dL 8.7 10.4 9.4 FINAL eHsham [place] [address] [address] [facility] [address] [facility] [phone] 0 Phone: () - 12/24 CMP Chlor rhonda mmol/L 96.0 114.0 109 FINAL [place] [address] [address] [facility] [address] [phone] Phone: () - 12/24 CMP CO2 [...] 96 hour stability window. FINAL Hesham Rich [facility], [facility] [address] [facility] [address] [phone] 0 Phone: () - 12/24 CMP Creat inine mg/dL 0.5 1.2 0.86 FINAL [place] [address] [address] [facility] [address] [phone] 0 Phone: () - 12/24 CMP GFR estim ate ml/min /1.73m ^2 80.9 GFR is calculate d using the CKD-EPI equation. FINAL [place] [address] [address] [facility] [address] [facility] [phone] 0 Phone: () - 12/24 CMP Gluco se mg/dL 73.0 126.0 99 FINAL Hesham Rich [facility], [address] [facility] [address] [facility] [id number] 0 Phone: () - 12/24 CMP Potas sium mmol/L 3.5 5.1 3.8 [facility], [address] [facility] [address] [facility] [phone] 0 Phone: () - 12/24 CMP Sodiu m mmol/L 136.0 145.0 144 FINAL [place] [address] [address] [facility] [address] [facility] [phone] 0 Phone: () - 12/24 CMP Bilir ubin, total mg/dL 0.3 1.2 0.3 FINAL [place] [address] [phone] Phone: () - 12/24 CMP Total prote in g/dL 5.7 8.2 7.1 [facility] [address] [phone] 0 Phone: () - 01/01 CBC w/ auto diff WBC K/uL 3.0 8.9 5.3 FINAL [facility] [place], [address] [facility] [address] [facility] [phone] 0 Phone: () - 01/01 CBC w/ auto diff HGB g/dL 11.3 15.2 10.6 Low FINAL [facility] [place], [address] [facility] [phone] 0 Phone: () - 01/01 CBC w/ auto diff PLT K/uL 113.0 364.0 326 FINAL [facility] [place], [address] [facility] [phone] 0 Phone: () - 01/01 CBC w/ auto diff Shirlene # (ANC) K/uL 1.6 6.6 3.7 FINAL Taylor Adasmot a Oncology - [place], [address] [place] [id number] 0 Phone: () - 01/01 CBC w/ auto diff Shirlene % % 43.0 74.0 69.3 FINAL Taylor Adamsot a Oncology - [place], [address] [place] [phone] 0 Phone: () - 01/01 CBC w/ auto diff IG % % 0.0 0.5 0.4 FINAL Taylor Adamsot a Oncology - [place], [address] [place] [phone] 0 Phone: () - 01/01 CBC w/ auto diff IG # K/uL 0.0 0.03 0.02 FINAL Taylor Adamsot a Oncology - [place], [address] [place] [phone] 0 Phone: () - 01/01 CBC w/ auto diff LY % % 14.0 41.0 21.9 FINAL Taylor Adamsot a Oncology - [place], [address] [place] [id number] 0 Phone: () - 01/01 CBC w/ auto diff MO % % 6.0 15.0 8.2 FINAL Taylor Adamsot a Oncology - [place], [address] [place] [phone] 0 Phone: () - 01/01 CBC w/ auto diff EO % % 0.0 7.0 0.0 FINAL Taylor Adamsot a Oncology - [place], [address] [place] [phone] 0 Phone: () - 01/01 CBC w/ auto diff BA % % 0.0 2.0 0.2 FINAL Taylor Adamsot a Oncology - [place], [address] [place] [phone] 0 Phone: () - 01/01 CBC w/ auto diff LY # K/uL 0.4 3.6 1.2 FINAL Taylor Rich a Oncology - [place], [address] [place] [phone] 0 Phone: () - 01/01 CBC w/ auto diff MO # K/uL 0.2 1.3 0.4 FINAL Taylor Rich a Oncology - [place], [address] [place] [phone] 0 Phone: () - 01/01 CBC w/ auto diff EO # K/uL 0.0 0.6 0.0 FINAL Taylor aguilar Oncology - [place], [address] [place] [phone] 0 Phone: () - 01/01 CBC w/ auto diff BA # K/uL 0.0 0.2 0.0 FINAL Taylor aguilar Oncology - [place], [address] [place] [phone] 0 Phone: () - 01/01 CBC w/ auto diff NRBC % #/100W BC 0.0 0.2 0.0 FINAL Taylor aguilar Oncology - [place], [address] [place] [phone] 0 Phone: () - 01/01 CBC w/ auto diff RBC M/uL 3.9 5.1 3.07 Low FINAL Taylor Rich a Oncology - [place], [address] [place] [phone] 0 Phone: () - 01/01 CBC w/ auto diff HCT % 35.0 48.0 30.1 Low FINAL Taylor Rich a Oncology - [place], [address] [place] [phone] 0 Phone: () - 01/01 CBC w/ auto diff MCV fL 80.0 104.0 98.0 FINAL Taylor Rich a Oncology - [place], [address] [place] [phone] 0 Phone: () - 01/01 CBC w/ auto diff MCH pg 26.0 35.0 34.5 FINAL [facility] [place], [address] [place] [phone] 0 Phone: () - 01/01 CBC w/ auto diff MCHC g/dL 30.0 35.0 35.2 High FINAL [facility] - [place], [address] [place] [phone] 0 Phone: () - 01/01 CBC w/ auto diff MPV fL 9.5 13.4 8.9 Low FINAL [facility] - [place], [address] [place] [phone] 0 Phone: () - 01/01 CBC w/ auto diff RDW % 11.4 16.1 15.50 FINAL [facility] - [place], [address] [place] [phone] 0 Phone: () - 01/01 iSTAT creat inine panel Creat inine , iSTAT mg/dl 0.6 1.3 0.8 FINAL [facility] - [place], [address] [place] [phone] 0 Phone: () - 01/01 iSTAT creat inine panel GFR estim ate ml/min /1.73m ^2 88.3 GFR is calculate d using the CKD-EPI equation. FINAL [facility] - [place], [address] [place] [phone] 0 Phone: () - 01/05 [facility] See digital marketing coordinator d 01/08 CMP Album in g/dL 3.2 5.2 4.4 FINAL Hes[facility] Brown [facility] - [place], [address] [place] [phone] 0 Phone: () - 01/08 CMP Alkal ine phosp hatas e U/L 46.0 116.0 72 FINAL Hesham Rich [place] [address] [address] [facility] [address] [phone] Phone: () - 01/08 CMP ALT/S GPT U/L 7.0 40.0 27 FINAL Hesham Rich [place] [address] [address] [facility] [address] [phone] Phone: () - 01/08 CMP AST/S GOT U/L 13.0 40.0 28 FINAL [place] [address] [address] [facility] [address] [phone] 0 Phone: () - 01/08 CMP BUN mg/dL 9.0 23.0 13.0 FINAL [place] [address] [phone] 0 Phone: () - 01/08 CMP Calci um mg/dL 8.7 10.4 9.6 FINAL Hesham Rich [place] [address] [phone] 0 Phone: () - 01/08 CMP Chlor rhonda mmol/L 96.0 114.0 108 FINAL [place] [address] [phone] 0 Phone: () - 01/08 CMP CO2 [...] 96 hour stability window. FINAL Hesham Rich [place] [address] [phone] 0 Phone: () - 01/08 CMP Creat inine mg/dL 0.5 1.2 0.79 FINAL [place] [address] [address] [facility] [address] [phone] 0 Phone: () - 01/08 CMP GFR estim ate ml/min /1.73m ^2 89.6 GFR is calculate d using the CKD-EPI equation. FINAL Hesham aguilar [facility], [address] [facility] [address] [facility] [phone] 0 Phone: () - 01/08 CMP Gluco se mg/dL 73.0 126.0 84 FINAL Hesham aguilar [facility], [address] [facility] [address] [facility] [phone] Phone: () - 01/08 CMP Potas sium mmol/L 3.5 5.1 4.1 FINAL Hesham aguilar [facility], [address] [facility] [address] [facility] [phone] 0 Phone: () - 01/08 CMP Sodiu m mmol/L 136.0 145.0 143 FINAL Hesham aguilar [facility], [address] [facility] [address] [facility] [phone] 0 Phone: () - 01/08 CMP Bilir ubin, total mg/dL 0.3 1.2 0.5 FINAL Hesham aguilar [facility], [address] [facility] [address] [facility] [phone] 0 Phone: () - 01/08 CMP Total prote in g/dL 5.7 8.2 7.0 FINAL Hesham aguilar [facility], [address] [facility] [address] [place] [phone] 0 Phone: () - 01/08 CBC w/ auto diff WBC K/uL 3.0 8.9 3.6 FINAL [facility] - [place], [address] [facility] [place] [phone] 0 Phone: () - 01/08 CBC w/ auto diff HGB g/dL 11.3 15.2 9.2 Low FINAL [facility] - [place], [address] [facility] [place] [phone] 0 Phone: () - 01/08 CBC w/ auto diff PLT K/uL 113.0 364.0 197 FINAL [facility] - [place], [address] [place] [phone] 0 Phone: () - 01/08 CBC w/ auto diff Shirlene # (ANC) K/uL 1.6 6.6 1.6 FINAL [facility] - [place], [address] [place] [phone] 0 Phone: () - 01/08 CBC w/ auto diff Shirlene % % 43.0 74.0 43.7 FINAL [facility] - [place], [address] [place] [phone] 0 Phone: () - 01/08 CBC w/ auto diff IG % % 0.0 0.5 0.3 FINAL [facility] - [place], [address] [place] [phone] 0 Phone: () - 01/08 CBC w/ auto diff IG # K/uL 0.0 0.03 0.01 FINAL [facility] - [place], [address] [place] [phone] 0 Phone: () - 01/08 CBC w/ auto diff LY % % 14.0 41.0 44.3 High FINAL [facility] - [place], [address] [place] [phone] 0 Phone: () - 01/08 CBC w/ auto diff MO % % 6.0 15.0 9.2 FINAL [facility] - [place], [address] [place] [phone] 0 Phone: () - 01/08 CBC w/ auto diff EO % % 0.0 7.0 2.2 FINAL [facility] - [place], [address] [place] [phone] 0 Phone: () - 01/08 CBC w/ auto diff BA % % 0.0 2.0 0.3 FINAL [facility] - [place], [address] [place] [phone] 0 Phone: () - 01/08 CBC w/ auto diff LY # K/uL 0.4 3.6 1.6 FINAL [facility] - [place], [address] [place] [phone] 0 Phone: () - 01/08 CBC w/ auto diff MO # K/uL 0.2 1.3 0.3 FINAL [facility] - [place], [address] [place] [phone] 0 Phone: () - 01/08 CBC w/ auto diff EO # K/uL 0.0 0.6 0.1 FINAL [facility] - [place], [address] [place] [phone] 0 Phone: () - 01/08 CBC w/ auto diff BA # K/uL 0.0 0.2 0.0 FINAL [facility] - [place], [address] [place] [phone] 0 Phone: () - 01/08 CBC w/ auto diff NRBC % #/100W BC 0.0 0.2 0.0 FINAL [facility] - [place], [address] [place] [phone] 0 Phone: () - 01/08 CBC w/ auto diff RBC M/uL 3.9 5.1 2.71 Low FINAL [facility] - [place], [address] [place] [phone] 0 Phone: () - 01/08 CBC w/ auto diff HCT % 35.0 48.0 26.6 Low FINAL [facility] - [place], [address] [place] [phone] 0 Phone: () - 01/08 CBC w/ auto diff MCV fL 80.0 104.0 98.2 FINAL [facility] - [place], [address] [place] [phone] 0 Phone: () - 01/08 CBC w/ auto diff MCH pg 26.0 35.0 33.9 FINAL [facility] - [place], [address] [place] [phone] 0 Phone: () - 01/08 CBC w/ auto diff MCHC g/dL 30.0 35.0 34.6 FINAL [facility] - [place], [address] [place] [phone] 0 Phone: () - 01/08 CBC w/ auto diff MPV fL 9.5 13.4 8.8 Low FINAL [facility] - [place], [address] [place] [phone] 0 Phone: () - 01/08 CBC w/ auto diff RDW % 11.4 16.1 15.00 FINAL [facility] - [place], [address] [place] [phone] 0 Phone: () - 05/27 [facility] [place] lab See digital marketing coordinator d 05/27 [facility] other lab See digital marketing coordinator d 12/01 [facility] other lab See digital marketing coordinator d 12/22 [facility] other lab See digital marketing coordinator d 05/22 [facility] other lab See digital marketing coordinator d 09/17 [facility] other lab See digital marketing coordinator d Medications Date Name Route Dose Frequency [...] (finding) Active Vital Signs Date Type Value 12/04/2022 BSA 1.98 12/04/2022 Body Temperature 96.80 12/04/2022 Heart Beat 73.00 12/04/2022 Respiratory Rate 16.00 12/04/2022 Oxygen Saturation 99.00 12/04/2022 Intravascular Systolic 122 12/04/2022 Intravascular Diastolic 78 12/04/2022 Pain Scale 0.00 12/04/2022 Weight 180.80 12/04/2022 Height 69.25 12/04/2022 BMI 26.51 12/12/2022 BSA 1.98 12/12/2022 BMI 26.42 12/12/2022 Height 69.25 12/12/2022 Weight 180.20 12/12/2022 Body Temperature 96.70 12/12/2022 Intravascular Systolic 140 12/12/2022 Intravascular Diastolic 74 12/12/2022 Oxygen Saturation 99.00 12/12/2022 Respiratory Rate 18.00 12/12/2022 Heart Beat 78.00 12/12/2022 Pain Scale 5.00 12/24/2022 BSA 1.99 12/24/2022 BMI 26.54 12/24/2022 Height 69.25 12/24/2022 Weight 181.00 12/24/2022 Pain Scale 2.00 12/24/2022 Intravascular Systolic 122 12/24/2022 Intravascular Diastolic 82 12/24/2022 Oxygen Saturation 100.00 12/24/2022 Respiratory Rate 20.00 12/24/2022 Body Temperature 97.10 12/24/2022 Heart Beat 86.00 01/01/2023 BSA 1.98 01/01/2023 Body Temperature 97.10 01/01/2023 Heart Beat 98.00 01/01/2023 Respiratory Rate 18.00 01/01/2023 Oxygen Saturation 99.00 01/01/2023 Intravascular Systolic 140 01/01/2023 Intravascular Diastolic 82 01/01/2023 Pain Scale 2.00 01/01/2023 Weight 179.40 01/01/2023 Height 69.25 01/01/2023 BMI 26.30 01/08/2023 BSA 1.97 01/08/2023 Body Temperature 96.90 01/08/2023 Heart Beat 86.00 01/08/2023 Respiratory Rate 16.00 01/08/2023 BMI 26.18 01/08/2023 Intravascular Systolic 128 01/08/2023 Intravascular Diastolic 84 01/08/2023 Pain Scale 0.00 01/08/2023 Weight 178.60 01/08/2023 Height 69.25 01/08/2023 Oxygen Saturation 99.00 Notes Section * Med Onc Follow-up Note Patient Name: HANNY CARTER? Date Of : 1970? Today's Provider:?Hesham Brown MD Date of Service:?12/04/2022? Attending Physician:?Hesham Brown (Hematology/Oncology), Manuel Fry (Thoracic Surgery) Referring Provider:??Nathalie Dowling PA-C HEMATOLOGY/ MEDICAL ONCOLOGY FOLLOW UP VISIT Reason for Visit Here for cycle #3 of now carboplatin and pemetrexed [...] avid 5.?? Depression not currently on medication Plan 1??due to nationwide shortage of cisplatin, patient has been switched to carboplatin first-line NCCN 2.?? I anticipate that her??nausea will be much less 3. ??I will arrange IV fluids for dehydration, symptoms of nausea, delayed nausea though this should be last??with switch of medication 4.?? Myriad of symptoms changes in vision unquestionable famotidine, famotidine has been stopped, this would not be a??typical side effect 5. ??Today I discussed alchemist trial again patient is away overwhelmed,??I requested to see if she could talk to the research RN on her last chemo. ??She is refusing to do the same today. 6.?? Once done with chemotherapy we will arrange imaging for patient to follow-up 7.?? Depression currently not on medication Advanced Care Planning Not discussed at this visit. Pain Scale on Today's Visit 0 Pain Plan on Today's Visit No pain plan indicated for today's visit Smoking Status Smoking Tobacco : Never smoker; Smokeless Tobacco : Never used smokeless tobacco; Vaping : Never vaped Depression Screening Tool Status Was screened; Outcome positive: No; Screening Date: 10/23/2022; Screening Tool: PRIME [id number]-[id number]; Total depression score: 0 History of Present [...] ??? Negative for visceropleural invasion ?Positive LVI ?[id number] ?TPS less than??1% negative PD-L1 expression ?TMB low ?ALK gene rearrangement TREATMENT TO DATE: 1.?? 07/10/2022: Left thoracotomy and lobectomy revealing above pathology 2.?? 10/23/2022: Cisplatin and pemetrexed, delayed due to dental procedures Interval History Here with her mother, overwhelmed,??concerned about progression, concerned about relapse concern about the future, concerns about toxicity. ??Numerous questions today about the same??we discussed theswitch of medication. ??Discussed the side effects that she is at including vision changes, numerous chart messages reviewed, triage notes reviewed. Review of Systems Remaining 14 point comprehensive review of systems within normal limits. NCCN Distress Thermometer and Problem List were collected and documented in the patient chart.?? Remarkable symptoms and concerns were discussed with the patient.?? Any additional follow-up is indicated in the plan. Past Medical and Surgical History Major depressive disorder, anxiety Current Medications Medication List Name Date Dexamethasone Oral 09/07/2022 Prochlorperazine Oral 09/07/2022 Montelukast Oral 04/13/2022 Olanzapine Oral 09/07/2022 Famotidine Oral 11/29/2022 Ferrous Sulfate Oral 04/13/2022 Lorazepam Oral 09/07/2022 Oxycodone Oral 07/25/2022 Albuterol HFA Inhaler 90 mcg/actuation 1 Cetirizine Oral 04/13/2022 Miscellaneous Drug 09/06/2022 Nystatin Topical Powder 09/07/2022 Ondansetron Oral 09/07/2022 Symbicort (Budesonide-Formoterol HFA Inh aler 160 mcg-4.5 mcg/actuation) 04/13/2022 Folic Acid Oral 09/07/2022 Allergies Penicillins, Sulfamide, aspirin, clarithromycin and rofecoxib [...] close with her brother who lives in [place]. No update Vital Signs Blood pressure: 122/78, Pulse: 73, Temperature: 96.8 F, Respirations: 16, O2 sat: 99%, Pain Scale: 0, Height: 69.25 in, Weight: 180.8 lb, BSA: 1.98, BMI: 26.51 kg/m2 Covid-19 vaccine (Moderna) (04/13/2022), Elsewhere; Covid-19 vaccine (Moderna) (04/13/2022), Elsewhere; Flu vaccine - Adult (05/30/2022), Not given other reason Performance Status ECOG or Karnofsky ECO Symptoms, but ambulatory. Restricted in physically strenuous activity, but ambulatory and able to carry out work of a light or sedentary nature (e.g., light housework, office work). (Date: 11/29/2022) Karnofsky:?Not recorded Physical Exam {Neck: Supple, without masses, lymphadenopathy or tenderness. Respiratory: Normal respiratory effort. Lungs are clear with good breath sounds. Heart: RR without murmurs, rubs, or gallops. Abdomen: The abdomen was flat, soft and nontender without guarding rebound or masses. Nodes: no cervical, supraclavicular, axillary or inguinal adenopathy Extremities: Full ROM without limitation, deformity or edema. } Genetics/Molecular/Biomarkers ? Additional Labs, Imaging, and Other Studies Lab Results CBC Lab Results 12/04/2022 11/18/2022 11/15/2022 11/13/2022 10/30/1910/23/2022 CBC WBC x 10^3/uL 3.2 3.6 5.9 7.4 RBC x 10^6/uL 3.11 (L) 3.87 (L) 4.19 4.12 NRBC % /100 wbc 0.0 0.0 0.0 0.0 HGB g/dL 10.4 (L) 12.2 13.1 12.8 HCT % 29.6 (L) 36.5 38.8 38.8 MCV fL 95.2 94.3 92.6 94.2 MCH pg 33.4 31.5 31.3 31.1 MCHC g/dL 35.1 (H) 33.4 33.8 33.0 RDW % 13.20 12.70 12.00 12.00 PLT x 10^3/uL 269 338 259 279 MPV fL 9.4 (L) 9.7 9.8 10.7 Shirlene % 57.8 62.5 55.4 59.1 LY % 32.2 29.1 32.3 29.6 MO % 9.7 8.1 6.1 10.6 EO % 0.0 0.0 5.2 0.3 IG % 0.3 0.3 0.3 0.1 Shirlene # (ANC) x 10^3/uL 1.9 2.2 3.3 4.4 BA % 0.0 0.0 0.7 0.3 MO # x 10^3/uL 0.3 0.3 0.4 0.8 EO # x 10^3/uL 0.0 0.0 0.3 0.0 BA # x 10^3/uL 0.0 0.0 0.0 0.0 IG # x 10^3/uL 0.01 0.01 0.02 0.01 LY # x 10^3/uL 1.0 1.0 1.9 2.2 Chemistries Lab Results 12/04/2022 11/18/2022 11/15/2022 11/13/2022 10/30/1910/23/2022 Chemistries Glucose mg/dL 92 64 (L) BUN mg/dL 16.0 11.0 Creatinine mg/dL 1.00 0.82 Creatinine, iSTAT mg/dL 0.8 0.8 1.2 0.8 Sodium mmol/L 142 144 Potassium mmol/L 3.8 3.6 Chloride mmol/L 106 108 CO2 mmol/L 29 24 Calcium mg/dL 9.7 9.8 Albumin g/dL 4.3 4.4 Total protein g/dL 6.9 7.2 Bilirubin, total mg/dL 0.5 0.5 Alkaline phosphatase U/L 70 73 AST/SGOT U/L 21 19 ALT/SGPT U/L 18 13 GFR estimate mL/min/1.73m2 88.3 88.3 67.6; 54.3 (L) 85.8; 8 8.4 ? Surveys/Consents/Other Discussions Hesham Brown MD CC: FANandini Dowling PA-C (Referring) Electronically signed by Hesham Brown MD 12/04/2022 09:13 CDT
[2025-02-09 15:42] LABS: Chloride* 102 mmol/L (96-114); Hematocrit 37.8 % (33.0-51.0); Hemoglobin* 12.6 gm/dL (12.0-16.0); Immature Granulocytes Abs Auto 0.01 K/uL (0.00-0.30); Immature Granulocytes Pct Auto 0.2 %; Lymphocytes Absolute Auto 1.77 K/uL (0.90-2.90); Mean Corpuscular HGB Conc 33 gm/dL (32-36); Mean Corpuscular Hemoglobin 31 pg (26-34); Mean Corpuscular Volume 92 fL (80-100); Potassium* 3.7 mmol/L (3.6-5.1); RDW Coefficient of Variation % 11.6 % (11.5-15.5); Red Blood Count 4.10 m/uL (4.00-5.20); Sodium* 138 mmol/L (135-149); White Blood Count* 5.96 K/uL (4.50-11.00)
[2025-02-09 15:44] LABS: Slide Review Reflex No
[2025-02-09 15:45] LABS: Anion Gap 6 mEq/L (7-15); Blood Urea Nitrogen* 15 mg/dL (7-30); Carbon Dioxide* 30 mmol/L (20-32); Creatinine* 0.8 mg/dL (0.5-1.5); Est. Creatinine Clearance* 84.01; Estimated Glomerular Filt Rate 88 ml/min
[2025-02-09 15:46] LABS: Calcium* 9.7 mg/dL (8.4-10.6); Glucose* 91 mg/dL (60-115)
== END 2025-02-09 16:59 | disposition home or self-care (01) ==
PROVIDERS: Emergency Provider Family Medicine; PCP Physician Assistant Medical
DX: N30.90 Cystitis, unspecified without hematuria (principal); N89.8 Other specified noninflammatory disorders of vagina; R53.83 Other fatigue
CPT/HCPCS: 36415; 51798; 80048; 81001; 85025; 86140; 87086; 99284

== ENCOUNTER 2025-02-23 13:48 | Outpatient (CLI) | payer BC, SELFPAY ==
[2025-02-23 22:07] LABS: Bacterial Vaginosis* Negative (Negative); Candida glab/krus NOT DETECTED (No Detected)
[2025-02-23 22:38] LABS: Chlamydia DNA Amplified* NOT DETECTED (No Detected); GC DNA Amplified* NOT DETECTED (No Detected)
== END 2025-02-23 13:49 | disposition home or self-care (01) ==
PROVIDERS: PCP Physician Assistant Medical; Visit Provider Physician Assistant
DX: N89.8 Other specified noninflammatory disorders of vagina (principal); R53.81 Other malaise; R53.83 Other fatigue; R39.15 Urgency of urination
CPT/HCPCS: 80053; 81513; 82306; 82728; 84443; 87086; 87481; 87491; 87591; 87661

== ENCOUNTER 2025-02-25 07:18 | Outpatient (CLI) | payer BC, SELFPAY ==
--- NOTE | 2025-02-25 07:15 | CRLHL7_ITS ---
For Patients: As a result of the Century Cures Act, medical imaging exams and procedure reports are released immediately into your electronic medical record. You may view this report before your referring provider. If you have questions, please contact your health care provider. CLINICAL HISTORY: Pelvic/back pain with bloating and urinary urgency COMPARISON: None. TECHNIQUE: 2D fox-scale ultrasound. In addition, color Doppler and spectral Doppler analysis was performed of the pelvis using a transabdominal and transvaginal approach. Transvaginal imaging performed to better visualize the endometrial stripe and ovaries. FINDINGS: Solid heterogeneous uterine fibroid is present anteriorly which partially obscures the endometrium. This measures 2.0 x 1.9 x 1.8 cm. Incidental cervical nabothian cysts are noted measuring up to 1.5 cm. Uterus measures 7.6 x 3.1 x 4.5 cm. The endometrial lining measures 3.8 mm in thickness. Mild endocervical fluid is present. The right ovary measures 2.7 x 2.1 x 1.7 cm in size and the left ovary is not visualized due to overlying bowel gas. The right ovary demonstrates normal arterial and venous blood flow on color Doppler and spectral Doppler analysis. There are no suspicious fluid collections within the cul-de-sac. IMPRESSION: Normal right ovary. Nonvisualization of the left ovary due to overlying bowel gas. No excess pelvic free fluid or torsion regarding the right ovary. Central uterine fibroid measures 2.0 cm which obscures a portion of the endometrium. Dictated by Ethan Buchanan MD @ 02/25/2025 9:01:25 AM (Electronically Signed)
== END 2025-02-25 07:19 | disposition home or self-care (01) ==
LOC: US 07:19
PROVIDERS: PCP Physician Assistant Medical; Visit Provider Physician Assistant
DX: R10.2 Pelvic and perineal pain (principal); D25.9 Leiomyoma of uterus, unspecified; R39.15 Urgency of urination
CPT/HCPCS: 76830; 76856

== ENCOUNTER 2025-03-30 10:51 | Outpatient (CLI) | payer BC, SELFPAY | END 2025-03-30 10:52 | disposition home or self-care (01) | LOC: NFLDREF 04-05 12:52 | PROVIDERS: PCP Physician Assistant Medical; Referring Provider Physician Assistant Medical; Visit Provider Physician Assistant Medical | DX: E78.2 Mixed hyperlipidemia (principal); R79.89 Other specified abnormal findings of blood chemistry | CPT/HCPCS: 80061; 82607 ==